=== PATIENT | female | born 1965 | race Caucasian/White ===

== ENCOUNTER 2020-08-30 06:57 | Outpatient (CLI) | payer OTHER, SELFPAY ==
--- NOTE | 2020-08-30 08:45 | USCV_ITS ---
Treasure Waldron Age: 55 Gender: F : 1965 Exam Date: 08/30/2020 07:28 Ordering Phys: Ascencion Johnson MD ([email or web address]) Technologist: Rachel Montero Exam Location: [facility] [place] Indication: SHORTNESS OF BREATH BP: 93 / 57 HR: 66 Rhythm: Sinus Technical Quality: Technically difficult study MEASUREMENTS (Male / Female) Normal Values 2D ECHO LV Diastolic Diameter PLAX 5.6 cm 4.2 - 5.9 / 3.9 - 5.3 cm LV Systolic Diameter PLAX 4.6 cm IVS Diastolic Thickness 1.4 cm 0.6 - 1.0 / 0.6 - 0.9 cm IVS Systolic Thickness 2.0 cm LVPW Diastolic Thickness 1.3 cm 0.6 - 1.0 / 0.6 - 0.9 cm LVPW Systolic Thickness 1.6 cm RV Chamber Size 3.2 cm LVOT Diameter 2.0 cm LV Ejection Fraction 2D Teich 38.3 % LV Ejection Fraction MOD 2C 32.1 % LV Ejection Fraction 2C AL 37.4 % LA Diameter 3.3 cm LA Width 4.7 cm LA Height 4.8 cm RA Width 4.2 cm RA Height 4.3 cm Aorta at Sinotubular Diameter 2.4 cm M-MODE Aortic Annulus Diameter 2.6 cm LA Ao Ratio MM 1.3 MV E Point Septal Separation 1.7 cm DOPPLER AV Peak Velocity 204.0 cm/s LVOT Peak Velocity 85.0 cm/s AV Area Cont Eq vti 1.5 cm squared AV Area Cont Eq pk 1.4 cm squared MV Area PHT 5.2 cm squared Mitral E to A Ratio 1.3 MV E' Velocity 54.2 cm/s Mitral E to MV E' Ratio 15.6 Mitral E to LV E' Lateral Ratio 15.1 Mitral E to LV E' Septal Ratio 16.2 TR Peak Velocity 265.0 cm/s TR Peak Gradient 28.1 mmHg Right Atrial Pressure 3.0 mmHg Pulmonary Artery Systolic Pressu 31.1 mmHg PV Peak Velocity 104.0 cm/s RV Acceleration Time 0.2 s RV Ejection Time 0.3 s RV AcT/ET 0.7 FINDINGS Left Ventricle Moderately increased left ventricular cavity size. Severely decreased left ventricular systolic function. Global hypokinesis with regional apical akinesis.left ventricular ejection fraction is estimated at 38 %.Grade II/IV diastolic dysfunction, moderately elevated filling pressures. Right Ventricle The right ventricle is normal in size and function. Right Atrium The right atrium is normal in size. Left Atrium The left atrium is normal in size. Mitral Valve Moderately thickened mitral valve. Moderate mitral annular calcification. No mitral valve stenosis. Trace mitral valve regurgitation. Aortic Valve Severe aortic valve calcification. Moderate aortic valve stenosis, mean gradient 9.1 mmHg, LISBET 1.5 cm squared. No aortic valve regurgitation. Tricuspid Valve Structurally normal tricuspid valve without significant stenosis or regurgitation. Pulmonary artery systolic pressure is normal. Pulmonic Valve Structurally normal pulmonic valve without significant stenosis. There is no pulmonic regurgitation. Pericardium Normal pericardium without effusion. Aorta Normal ascending aorta dimension. CONCLUSIONS 1-Moderately increased left ventricular cavity size. Severely decreased left ventricular systolic function. Global hypokinesis with regional apical akinesis.left ventricular ejection fraction is estimated at 38 %.Grade II/IV diastolic dysfunction, moderately elevated filling pressures. 2-Severe aortic valve calcification. Moderate aortic valve stenosis, mean gradient 9.1 mmHg, LISBET 1.5 cm squared. No aortic valve regurgitation. 3-Moderately thickened mitral valve. Moderate mitral annular calcification. No mitral valve stenosis. Trace mitral valve regurgitation. 4-There is no pericardial effusion. 5-Pulmonary artery systolic pressure is within normal limits. 6-Right atrial pressure is around 5 mm of mercury. 7-There are no prior echocardiogram studies to compare. Ascencion Johnson MD (Electronically Signed) Final Date: 01 September 2020 19:40 S
== END 2020-08-30 06:58 | disposition home or self-care (01) ==
LOC: US 06:59
PROVIDERS: PCP Family Medicine; Visit Provider Internal Medicine Cardiovascular Disease
DX: R06.02 Shortness of breath (principal); I08.0 Rheumatic disorders of both mitral and aortic valves
CPT/HCPCS: 93306

== ENCOUNTER → 2021-05-04 11:02 | Outpatient (BNVA) | payer OTHER, SELFPAY | PROVIDERS: PCP Family Medicine; Visit Provider Nurse Practitioner Family | DX: I10 Essential (primary) hypertension (principal); I50.23 Acute on chronic systolic (congestive) heart failure | CPT/HCPCS: 80048; 80061; 83880; 85025 ==

== ENCOUNTER → 2021-06-06 15:16 | Outpatient (BNVA) | payer OTHER, SELFPAY | PROVIDERS: PCP Family Medicine; Visit Provider Nurse Practitioner Family | DX: I50.23 Acute on chronic systolic (congestive) heart failure (principal) | CPT/HCPCS: 80048; 83880 ==

== ENCOUNTER 2021-09-12 15:28 | Outpatient (CLI) | payer OTHER, SELFPAY ==
[2021-09-12 16:55] LABS: Anion Gap 20.5 (5-19); Blood Urea Nitrogen 32 mg/dL (6-20); Calcium 10.4 mg/dL (8.5-10.5); Carbon Dioxide 25 mmol/L (22-29); Chloride 95 mmol/L (98-107); Glomerular Filtration Rate 57.4 mL/min (90-130); Glucose 123 mg/dL (65-115); Magnesium 1.4 mg/dL (1.7-2.3); NT Pro B Type Natriuretic Pept 2600 pg/mL (0-125); Osmolality Calculated 292 mOsm/kg (285-295); Potassium 3.5 mmol/L (3.5-5.1); Sodium 137 mmol/L (136-145)
== END 2021-09-12 15:29 | disposition home or self-care (01) ==
LOC: LAB 15:31
PROVIDERS: PCP Family Medicine; Visit Provider Internal Medicine Cardiovascular Disease
DX: I10 Essential (primary) hypertension (principal); I50.23 Acute on chronic systolic (congestive) heart failure
CPT/HCPCS: 80048; 83735; 83880

== ENCOUNTER 2021-09-15 06:13 | Inpatient (IN) | payer OTHER, SELFPAY ==
[2021-09-15] VITALS (11 sets, daily range): BP systolic 96–111; BP diastolic 54–84; PULSE 89–120; RESP 16–26; TEMP 36.8–37.8; O2SAT 91–96; BMI 40.4
--- NOTE | 2021-09-15 06:26 | ED_ITS ---
HPI - SOB/Dyspnea General: Chief Complaint: Shortness of Breath/Dyspnea Stated Complaint: diff breathing, hurting all over Time Seen by Provider: 09/15/21 06:18 Source: patient Mode of arrival: ambulatory Limitations: no limitations History of Present Illness: HPI Narrative: 56-year-old female presents emergency room with complaint of shortness of breath and cough. Patient is tachycardic with a low-grade fever. States that overnight she was disoriented for time sitting up family that was with her said she was talking incoherently and it lasted for about 2 hours is resolved now. She does have a significant history of congestive heart failure ejection fraction in the 30s. Patient seen Dr. Penaloza yesterday and increased her spironolactone to 50 mg daily. Patient also has a history of sleep apnea. She denies any chest pain last night or at this time. Difficulty speech or swallowing. MD elicited complaint: shortness of breath and cough Pertinent past history: congestive heart failure Onset (ago): hour(s) Severity: moderate Exacerbating factors: lying flat, exertion and coughing Relieving factors: rest Known history of: congestive heart failure Associated symptoms: Reports cough, fever(s) and orthopnea; Deny abdominal pain, chest congestion, chest pain, diaphoresis, dizziness, extremity pain, hemoptysis, lightheadedness, myalgias, nausea, palpitations, paresthesias, polydipsia, polyuria, rash, sense of impending doom, syncope or vomiting Treatment prior to arrival: none Review of Systems Const: Reports: fever(s), change in appetite, fatigue and malaise; Denies: chills, body aches or diaphoresis ENMT: Denies: throat pain, ear or mastoid pain, nasal discharge or nasal congestion Card: Reports: dyspnea on exertion and orthopnea; Denies: chest pain, palpitations, edema, swelling of feet/ankles, lightheadedness or syncope Resp: Reports: dyspnea and non-productive cough; Denies: hemoptysis or chest congestion GI: Denies: abdominal pain, nausea or vomiting : Denies: flank pain, difficulty voiding, dysuria, urinary frequency or urinary urgency Musc: Denies: extremity pain Skin/Breast: Denies: rash or pruritus Neuro: Denies: dizziness Endo: Denies: polyuria or polydipsia PFSH ED PFSH: Medical History Cardiomyopathy Nonischemic, angiogram 2019 no disease Chronic back pain COPD (chronic obstructive pulmonary disease) Crohn disease Diabetes type 2, controlled Essential hypertension GERD (gastroesophageal reflux disease) Hyperlipidemia Hypothyroid Left bundle branch block Morbid obesity AURELIO on CPAP Presence of neurostimulator Systolic heart failure Surgical History History of carpal tunnel surgery Previous section Family History Other CAD (coronary artery disease) Hypertension Social History Smoking and tobacco status: current every day smoker Alcohol intake: current Alcohol intake frequency: 0-2 Drinks per Day Physical Exam Const: GENERAL APPEARANCE: cooperative and comfortable ORIENTATION/CONSCIOUSNESS: Yes awake, Yes oriented to person, Yes oriented to place and Yes oriented to time HENMT: COMMON NORMALS: normocephalic, atraumatic and hearing grossly normal bilaterally HEAD & SCALP: normocephalic and atraumatic Neck/C-Spine: COMMON NORMALS: no JVD Resp: COMMON NORMALS: normal respiratory effort, No retractions and No use of accessory muscles AUSCULTATION: crackles Cardio: COMMON NORMALS: no JVD, regular rate, regular rhythm and No murmurs present (Cardio) RATE: regular rate RHYTHM: regular rhythm GI: COMMON NORMALS: Soft to palpation and No hepatosplenomegaly present AUSCULTATION: Yes normoactive bowel sounds PALPATION: Yes Soft to palpation, No Tenderness to palpation present (GI), No Guarding due to palpation present (GI) and Yes No hepatosplenomegaly present Extremity: COMMON NORMALS: normal to inspection, capillary refill normal, no clubbing, cyanosis or edema, no calf tenderness and no pedal edema Neuro: SENSORIUM/ORIENTATION: Yes oriented to person, Yes oriented to place and Yes oriented to time Skin: COMMON NORMALS: no rashes or lesions noted GENERAL SKIN EXAM: no rashes or lesions noted Course Vital Signs: Vital signs: Vital Signs Temperature 98.3 F 09/20/21 07:27 Pulse Rate 92 09/20/21 08:13 Respiratory Rate 16 09/20/21 08:08 Blood Pressure 113/71 09/20/21 07:27 Pulse Oximetry 98 09/20/21 08:08 MDM - SOB/Dyspnea Medical Decision Making Right lower lobe pneumonia in addition to COPD exacerbation exacerbation of congestive heart failure. Discussed with hospitalist will admit orders written Medical Records I reviewed the patient's medical records. Lab Data I reviewed the patient's lab results. : 09/20/21 02:25 09/20/21 02:25 Labs/Radiology: Radiology Impressions Chest X-Ray 09/15/21 06:29 IMPRESSION: 1. Cardiac enlargement. No acute process. Abdomen/Pelvis CT 09/15/21 09:25 IMPRESSION: 1. No acute abdominal or pelvic abnormalities are identified. 2. No ascites or free air. 3. Normal appendix. 4. Focal area of subsegmental atelectasis versus lymph node along the proximal RIGHT lower lobe bronchus. Chest CT with IV contrast may be necessary to further identify and defined. Chest CT 09/16/21 09:41 IMPRESSION: 1. Area of subsegmental atelectasis seen in the medial right lower lobe which probably accounts for the abnormality identified on recent abdominal CT scan. 2. 1.5 x 2.1 cm soft tissue nodule seen in the right hilar area with surrounding infiltrate. This could represent a small area of focal pneumonia. A benign or malignant pulmonary nodule could have the same appearance. Comparison with any prior outside CTs could be helpful. Otherwise 3 month follow-up for surveillance could be performed. 3. No lymphadenopathy in the chest. No other significant finding. Laboratory Results WBC 14.7 10^3/uL (4.0-10.0) H 09/15/21 06:25 RBC 4.17 10^6/uL (4.1-5.3) 09/15/21 06:25 Hgb 13.2 g/dL (11.5-15.3) 09/15/21 06:25 Hct 39.0 % (37.0-47.0) 09/15/21 06:25 MCV 93.5 fl (81-99) 09/15/21 06:25 MCH 31.7 pg (28.0-34.0) 09/15/21 06:25 MCHC 33.8 g/dL (30.0-36.0) 09/15/21 06:25 RDW 12.6 % (12.1-15.1) 09/15/21 06:25 Plt Count 295 10^3/cmm (130-400) 09/15/21 06:25 MPV 9.7 fL (7.4-10.4) 09/15/21 06:25 Neut % (Auto) 77.7 % 09/15/21 06:25 Lymph % (Auto) 10.4 % 09/15/21 06:25 Bell % (Auto) 10.6 % 09/15/21 06:25 Eos % (Auto) 0.6 % 09/15/21 06:25 Baso % (Auto) 0.4 % 09/15/21 06:25 Neut # (Auto) 11.41 10^3/uL (1.8-7.7) H 09/15/21 06:25 Lymph # (Auto) 1.5 10^3/uL (0.8-4.8) 09/15/21 06:25 Bell # (Auto) 1.6 10^3/uL (0.2-0.9) H 09/15/21 06:25 Eos # (Auto) 0.1 10^3/uL (0.0-0.8) 09/15/21 06:25 Baso # (Auto) 0.1 10^3/uL (0.0-0.1) 09/15/21 06:25 Nucleated RBC % (auto) 0 % 09/15/21 06:25 Nucleated RBCs # 0.0 /100WBC 09/15/21 06:25 Sodium 134 mmol/L (136-145) L 09/15/21 07:19 Potassium 3.1 mmol/L (3.5-5.1) L 09/15/21 07:19 Chloride 92 mmol/L (98-107) L 09/15/21 07:19 Carbon Dioxide 28 mmol/L (22-29) 09/15/21 07:19 Anion Gap 17.1 (5-19) 09/15/21 07:19 BUN 22 mg/dL (6-20) H 09/15/21 07:19 Creatinine 0.7 mg/dL (0.5-0.9) 09/15/21 07:19 GFR Calculation 86.6 mL/min (90-130) L 09/15/21 07:19 Glucose 164 mg/dL (65-115) H 09/15/21 07:19 Calculated Osmolality 285 mOsm/kg (285-295) 09/15/21 07:19 Lactic Acid 1.4 mmol/L (0.5-2.2) 09/15/21 07:19 Calcium 9.6 mg/dL (8.5-10.5) 09/15/21 07:19 Magnesium 1.4 mg/dL (1.7-2.3) L 09/15/21 11:40 Total Bilirubin 0.7 mg/dL (0.15-1.2) 09/15/21 07:19 AST 16 U/L (0-32) 09/15/21 07:19 ALT 15 U/L (0-33) 09/15/21 07:19 Alkaline Phosphatase 43 IU/L (35-105) 09/15/21 07:19 Troponin T Baseline 28 ng/L (0-10) H 09/15/21 07:19 Troponin T 120 Minute 24.16 ng/L (0-10) H 09/15/21 08:40 Delta Troponin T -3.84 ABS# (0-10) L 09/15/21 08:40 Troponin T Hi Sens 6Hr 27.67 ng/L (0-10) H 09/15/21 11:40 Troponin T Hi Sens 6Hr Delta -0.33 ng/L (0-12) L 09/15/21 11:40 NT-Pro-B Natriuret Pep 2853 pg/mL (0-125) H 09/15/21 07:19 Total Protein 8.3 g/dL (6.6-8.7) 09/15/21 07:19 Albumin 4.5 g/dL (3.5-5.2) 09/15/21 07:19 Globulin 3.8 g/dL (1.3-4.6) 09/15/21 07:19 TSH 0.68 uIU/mL (0.27-4.20) 09/15/21 11:40 Urine Color Yellow (Yellow) 09/15/21 07:54 Urine Appearance Clear (CLEAR) 09/15/21 07:54 Urine pH 6 (5-7) 09/15/21 07:54 Ur Specific [place] 1.015 (1.005-1.030) 09/15/21 07:54 Urine Protein Neg (Negative) 09/15/21 07:54 Urine Glucose (UA) Norm (Normal) 09/15/21 07:54 Urine Ketones Negative (Negative) 09/15/21 07:54 Urine Blood 2+ (Negative) H 09/15/21 07:54 Urine Nitrate Negative (Negative) 09/15/21 07:54 Urine Bilirubin Neg (Negative) 09/15/21 07:54 Urine Urobilinogen Norm mg/dL (Negative) 09/15/21 07:54 Ur Leukocyte Esterase Negative (Negative) 09/15/21 07:54 Urine RBC 5-10 /hpf (0-2) H 09/15/21 07:54 Urine WBC 0-4 /hpf (0-5) H 09/15/21 07:54 Ur Squamous Epith Cells 15-25 /hpf (0-5) H 09/15/21 07:54 Amorphous Sediment Not Reportable 09/15/21 07:54 Urine Bacteria 1+ /hpf (NONE) H 09/15/21 07:54 Discharge Plan Discharge Patient Disposition: Admitted As Inpatient Admit Provider: Pascual Milton Clinical Impression: Pneumonia, COPD exacerbation, Systolic heart failure, Hypokalemia, Hypomagnesemia Condition: Stable Coding Level of Care Code ED 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
--- NOTE | 2021-09-15 06:29 | XR_ITS ---
WS: [id number] Exam: XR chest 1V portable [id number] Date/Time of Exam: 09/15/2021 6:32 AM Reason For Exam: dyspnea/cough Comparison 03/12/2019. The heart enlarged but unchanged in size. The lungs are clear and fully inflated. Normal mediastinal contour. Regional bony elements are intact. Neurostimulator electrodes in the mid thoracic region. XR/XR chest 1V portable [id number] IMPRESSION: 1. Cardiac enlargement. No acute process.
--- NOTE | 2021-09-15 06:29 | ECG_ITS ---
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 Measurements Intervals [place] Rate: 115 P: [place]: QRS: -22 QRSD: 178 T: 75 QT: 375 QTc: 520 Interpretive Statements Possible sinus tachycardia with afrequent supraventricular and ventricular ectopics INTRAVENTRICULAR CONDUCTION DELAY [130+ ms QRS DURATION] CRITICAL TEST RESULT INTERPRETATION BASED ON A DEFAULT AGE OF 40 YEARS Compared to ECG 03/12/2019 04:10:17 Intraventricular conduction delay now present Sinus rhythm no longer present Left bundle-branch block no longer present Electronically Signed On 09-16-2021 13:35:06 CDT by Alexis Weldon M.D. [id number]
[2021-09-15 06:44] LABS: Basophils # 0.1 10^3/uL (0.0-0.1); Basophils % 0.4 %; Eosinophils # 0.1 10^3/uL (0.0-0.8); Eosinophils % 0.6 %; Hemoglobin 13.2 g/dL (11.5-15.3); Lymphocytes # 1.5 10^3/uL (0.8-4.8); Lymphocytes % 10.4 %; Mean Corpuscular HGB Conc 33.8 g/dL (30.0-36.0); Mean Corpuscular Hemoglobin 31.7 pg (28.0-34.0); Mean Corpuscular Volume 93.5 fl (81-99); Mean Platelet Volume 9.7 fL (7.4-10.4); Monocytes # 1.6 10^3/uL (0.2-0.9); Monocytes % 10.6 %; Neutrophils # 11.41 10^3/uL (1.8-7.7); Neutrophils % 77.7 %; Nucleated Red Blood Cells % 0 %; Platelet Count 295 10^3/cmm (130-400); Red Blood Count 4.17 10^6/uL (4.1-5.3); Red Cell Distribution Width 12.6 % (12.1-15.1); White Blood Count 14.7 10^3/uL (4.0-10.0)
[2021-09-15 07:46] LABS: Lactic Sepsis W/Reflex 1.4 mmol/L (0.5-2.2)
[2021-09-15 07:48] LABS: Troponin(5th) Baseline 28 ng/L (0-10)
[2021-09-15 07:57] LABS: Alanine Aminotransferase 15 U/L (0-33); Albumin Level 4.5 g/dL (3.5-5.2); Alkaline Phosphatase 43 IU/L (35-105); Anion Gap 17.1 (5-19); Aspartate Amino Transferase 16 U/L (0-32); Blood Urea Nitrogen 22 mg/dL (6-20); Calcium 9.6 mg/dL (8.5-10.5); Carbon Dioxide 28 mmol/L (22-29); Chloride 92 mmol/L (98-107); Globulin 3.8 g/dL (1.3-4.6); Glomerular Filtration Rate 86.6 mL/min (90-130); Glucose 164 mg/dL (65-115); NT Pro B Type Natriuretic Pept 2853 pg/mL (0-125); Osmolality Calculated 285 mOsm/kg (285-295); Potassium 3.1 mmol/L (3.5-5.1); Sodium 134 mmol/L (136-145); Total Bilirubin 0.7 mg/dL (0.15-1.2); Total Protein 8.3 g/dL (6.6-8.7)
[2021-09-15 08:14] LABS: Add Urine Microscopic? YES; Bilirubin Urine Neg (Negative); Blood Urine 2+ (Negative); Glucose Urine UA Norm (Normal); Ketones Urine Negative (Negative); Leukocyte Esterase Urine Negative (Negative); Nitrate Urine Negative (Negative); Protein Urine Neg (Negative); Specific Gravity, Urine 1.015 (1.005-1.030); Urine Appearance Clear (CLEAR); Urine Color Yellow (Yellow); Urobilinogen Urine Norm (Negative); pH Urine 6 (5-7)
[2021-09-15 08:24] LABS: Add Urine Culture? No; Bacteria Urine 1+ /hpf; Squamous Epithelial Cell Urine 15-25 /hpf (0-5); WBC Urine 0-4 /hpf (0-5)
--- NOTE | 2021-09-15 08:29 | ECG_ITS ---
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 Measurements Intervals [place] Rate: 119 P: 59 DE: 257 QRS: 20 QRSD: 177 T: 79 QT: 376 QTc: 530 Interpretive Statements SINUS TACHYCARDIA WITH FREQUENT VENTRICULAR PREMATURE COMPLEXES LEFT ATRIAL ENLARGEMENT [-0.15mV P-WAVE IN V1/V2] LEFT BUNDLE BRANCH BLOCK [120+ ms QRS DURATION, 80+ ms Q/S IN V1/V2, 85+ ms R IN I/aVL/V5/V6] Compared to ECG 09/15/2021 06:23:01 Ventricular premature complex(es) now present First degree AV block now present Atrial abnormality now present Left bundle-branch block now present Intraventricular conduction delay no longer present Electronically Signed On 09-16-2021 13:51:15 CDT by Alexis Weldon M.D. [id number]
[2021-09-15 09:15] LABS: Troponin 5 2HR 24.16 ng/L (0-10)
[2021-09-15 09:17] LABS: Troponin 5 2HR Delta -3.84 ABS# (0-10)
--- NOTE | 2021-09-15 09:25 | CT_ITS ---
WS: [id number] CT ABDOMEN AND PELVIS WITH CONTRAST HISTORY: Abdominal pain. TECHNIQUE: Imaging performed of the abdomen and pelvis with IV contrast. Single phase imaging of the abdomen. Coronal and sagittal reformats are submitted. All CT scans at [facility] use at [address] one of these dose optimization techniques: automated exposure control; mA and/or kV adjustment per patient size (includes targeted exams where dose is matched to clinical indication); or iterative re construction. IV CONTRAST: Omnipaque 300; 95 mL IV. Oral contrast: No DLP: 1592.06 mGy.cm COMPARISON: None available. Lower thorax: Lung bases are clear. Incompletely visualized 2.5 cm lymph node versus atelectasis marty cent to the LEFT atrium. Heart is moderately enlarged. No hiatal hernia. Liver/biliary system: Normal size with no intrahepatic dilatation. Very slightly decreased attenuatio n near the venecia hepatis. May be an area of fatty sparing. Normal portal vein. Gallbladder: Normal. No gallstones or wall thickening. No pericholecystic fluid. Pancreas: Normal size pancreas and pancreatic duct. No adjacent inflammation. Spleen: Normal size spleen. No mass or infarct. Adrenal glands: Normal. Right kidney: Normal. Left kidney: Normal. Aorta: Mild atherosclerosis with no aneurysm. Lymphadenopathy: None. Free fluid: None. GI tract: Normal appendix. Stomach is not distended. No small bowel obstruction or wall thickening. C olon is normal. Abdominal wall: Unremarkable abdominal wall. No hernia. Pelvis: Well-distended urinary bladder. No free fluid or adenopathy. Uterus is atrophic. There is a d ense calcification in the LEFT adnexa associated with the ovary. No ovarian mass. Bones: L5 anterolisthesis by 9 mm with bilateral pars defects. Disc space narrowing throughout. Dorsa l column stimulator with electrodes over the mid thoracic region. CT/CT abdomen pelvis w con* [id number] IMPRESSION: 1. No acute abdominal or pelvic abnormalities are identified. 2. No ascites or free air. 3. Normal appendix. 4. Focal area of subsegmental atelectasis versus lymph node along the proximal RIGHT lower lobe bronchus. Chest CT with IV contrast may be necessary to furth er identify and defined.
[2021-09-15] MEDS: iohexol 300 mg/mL 100 mL Btl IV (09:36)
[2021-09-15 12:09] LABS: Troponin 5 6HR 27.67 ng/L (0-10)
[2021-09-15 12:11] LABS: Troponin 5 6HR Delta -0.33 ng/L (0-12)
[2021-09-15 12:14] LABS: Magnesium 1.4 mg/dL (1.7-2.3); Thyroid Stimulating Hormone 0.68 uIU/mL (0.27-4.20)
--- NOTE | 2021-09-15 12:29 | ECG_ITS ---
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 Measurements Intervals [place] Rate: 110 P: 76 CO: 158 QRS: 9 QRSD: 181 T: 78 QT: 389 QTc: 528 Interpretive Statements SINUS TACHYCARDIA WITH OCCASIONAL VENTRICULAR PREMATURE COMPLEXES LEFT BUNDLE BRANCH BLOCK [120+ ms QRS DURATION, 80+ ms Q/S IN V1/V2, 85+ ms R IN I/aVL/V5/V6] Compared to ECG 09/15/2021 08:05:43 First degree AV block no longer present Atrial abnormality no longer present Electronically Signed On 09-16-2021 13:50:07 CDT by Nora Yancey M.D. [id number]
--- NOTE | 2021-09-15 12:42 | P.HP_ITS ---
Providers/Chief Complaint Primary Care Provider: Sascha Carcamo Chief Complaint: diff breathing, hurting all over History of Present Illness Treasure Waldron is a 56 year old female who presents with cough, myalgias, and significant chills since last night. She states the cough has been going on somewhat longer. She has been wheezing. There is been no vomiting, diarrhea. She has had some nausea. She reports she had Covid in June, and has received 2 vaccinations but not a booster. She is recently had her cardiac medicines adj usted for concerns of fluid overload. She reports a mild headache. She denies any sick contacts at home. She reports no chest discomfort, only some tightness with her wheezing. She feels more swollen than usual, which she reports in her abdomen and arms. She states she does not usually get swelling from her heart failure in her upper extremities. Review of Systems General: Reports: 10 or more systems reviewed and unremarkable except in HPI and below Const: Reports: chills, body aches and fatigue Eyes: Denies: change in vision ENMT: Denies: throat pain or hoarseness Card: Reports: dyspnea on exertion Resp: Reports: dyspnea, non-productive cough and wheezing GI: Reports: nausea; Denies: vomiting, heartburn, hematochezia or melena : Denies: flank pain or difficulty voiding Musc: Denies: neck pain Skin/Breast: Denies: rash Neuro: Reports: headache(s) Psych: Denies: anxiety or depression Endo: Denies: polyuria Oleksandr/Lymph: Denies: easy bruising All/Imm: Denies: urticaria Medications/Allergies Home Medications Medication Instructions Recorded Confirmed Last Taken Type ascorbic acid (vitamin C) 1,000 mg 1,000 mg PO BID 08/09/20 09/15/21 09/14/21 History tablet aspirin 81 mg tablet,delayed 81 mg PO QAM 08/09/20 09/15/21 09/14/21 History release (Adult Low Dose Aspirin) elderberry fruit 200 mg capsule 200 mg PO DAILY PRN 08/09/20 09/15/21 Unknown History levothyroxine 75 mcg tablet 75 mcg PO QAM 08/09/20 09/15/21 09/14/21 History loratadine 10 mg tablet 10 mg PO BEDTIME 08/09/20 09/15/21 09/14/21 History metformin 500 mg tablet 500 mg PO BID 08/09/20 09/15/21 09/14/21 History pantoprazole 40 mg tablet,delayed 40 mg PO BID tab 08/09/20 09/15/21 09/14/21 History release paroxetine HCl 20 mg tablet 20 mg PO BEDTIME 08/09/20 09/15/21 09/14/21 History albuterol sulfate 90 mcg/actuation 2 puff INHALATION Q6H PRN 04/05/21 09/15/21 Unknown History aerosol inhaler infliximab 100 mg intravenous See Rx Instructions .ROUTE 04/05/21 09/15/21 Unknown History solution (Remicade) .COMPLEX ea metoprolol succinate 25 mg 12.5 mg PO DAILY #90 tab 05/25/21 09/15/21 09/14/21 Rx tablet,extended release 24 hr acetaminophen 500 mg tablet 1,000 - 1,500 mg PO Q4H PRN 09/08/21 09/15/21 Unknown History (Tylenol Extra Strength) cholecalciferol (vitamin D3) 25 25 mcg PO QAM 09/08/21 09/15/21 09/14/21 History mcg (1,000 unit) capsule omega-3 fatty acids 500 mg capsule 500 mg PO BEDTIME 09/08/21 09/15/21 09/14/21 History spironolactone 50 mg tablet 50 mg PO DAILY #90 tab 09/08/21 09/15/21 09/14/21 Rx tramadol 50 mg tablet 50 mg PO Q8H PRN 09/08/21 09/15/21 Unknown History furosemide 40 mg tablet 80 mg PO BID #360 tab 09/13/21 09/15/21 09/14/21 Rx magnesium oxide 400 mg PO BID #60 cap 09/13/21 09/15/21 Unknown Rx potassium chloride 20 mEq 40 meq PO BID #360 tab 09/13/21 09/15/21 09/14/21 Rx tablet,extended release cyclobenzaprine 10 mg tablet 10 mg PO BID PRN 09/15/21 09/15/21 Unknown History metolazone 2.5 mg tablet See Rx Instructions .ROUTE .COMPLEX 09/15/21 09/15/21 09/14/21 History 2.5MG multivitamin 1 tab PO DAILY 09/15/21 09/15/21 09/14/21 History rosuvastatin 10 mg tablet 10 mg PO BEDTIME 09/15/21 09/15/21 09/14/21 History Allergies Allergy/AdvReac Type Severity Reaction Status Date / Time levofloxacin Allergy Unknown Unknown Verified 09/15/21 11:34 sacubitril [From Entresto] Allergy ADR-Itching Verified 09/15/21 11:34 valsartan [From Entresto] Allergy ADR-Itching Verified 09/15/21 11:34 PFSH Acute PFSH: Medical History (Updated 09/15/21 @ 14:51 by Pascual Milton MD) Cardiomyopathy Nonischemic, angiogram 2019 no disease Chronic back pain COPD (chronic obstructive pulmonary disease) Crohn disease Diabetes type 2, controlled Essential hypertension GERD (gastroesophageal reflux disease) Hyperlipidemia Hypothyroid Morbid obesity AURELIO on CPAP Presence of neurostimulator Systolic heart failure Surgical History (Updated 09/15/21 @ 12:54 by Pascual Milton MD) History of carpal tunnel surgery Previous section Family History Other CAD (coronary artery disease) Hypertension Social History Smoking and tobacco status: current every day smoker Alcohol intake: current Alcohol intake frequency: 0-2 Drinks per Day Vitals/I&O/Wt Last Vital Signs Temp 100.1 F H 09/15/21 06:18 Pulse 111 H 09/15/21 11:16 Resp 16 09/15/21 11:16 BP 98/75 09/15/21 11:16 Pulse Ox 91 09/15/21 11:16 Weight last 48 hrs Weight 90.718 kg Physical Exam Narrative: General exam is a white female, with audible wheezing. Mild retractions. Temperature elevation noted HEENT: Pupils equally round. Oropharynx clear. Neck is supple no lymphadenopathy or thyromegaly Cardiovascular tachycardic, no murmur Lungs bilateral expiratory wheezes. A few rales bilaterally Abdomen is soft nontender obese positive bowel sounds. No obvious organomegaly exams deferred Extremities no cyanosis clubbing or edema, cap refill brisk Skin no rash Neuro no obvious focal deficits. Data : 09/15/21 06:25 09/15/21 07:19 Other Labs: Magnesium 1.4 Troponin XX 8 with repeat of 24 BNP 2853 LFTs normal TSH 0.68 Urinalysis with 5-10 red blood cells 0-4 white blood cells Covid PCR pending Last echogram August demonstrated diminished EF at 38%, 2/4 diastolic dysfunction, moderate aortic valve stenosis. EKG demonstrates sinus tachycardia, left bundle branch block Chest x-ray cardiomegaly CT abdomen pelvis demonstrates a right lower lobe enlarged lymph node near bronchus or atelectasis. This could also represent an infiltrate such as pneum onia. Further imaging with CT chest could be considered. Micro: Microbiology 09/15/21 06:50 Blood Culture - Preliminary Blood SPECIMEN COLLECTED 09/15/21 06:50 Blood Culture - Preliminary Blood SPECIMEN COLLECTED A&P Assessment and plan (1) Pneumonia: Clinically she appears to have pneumonia with elevated temperature, abnormality on CT scan right lower lobe, tachycardia. She has some immune suppression as she is on infliximab for history of Crohn's disease. Blood cultures have been drawn. Obtain sputum culture. Covid PCR, which will include influenza Initial antibiotics of Rocephin and azithromycin Oxygen as needed Status: Acute (2) COPD exacerbation: Active wheezing Initiate Solu-Medrol 60 mg IV every 8 hours DuoNeb every 4 hours scheduled, budesonide twice daily Discussed abstaining from smoking. Nicotine patch. Status: Acute (3) Systolic heart failure: History of nonischemic cardiomyopathy. Mild exacerbation. Hold p.o. diuretics currently, changed to Lasix 80 mg every 12 hours Repeat echocardiogram Telemetry BNP elevated above patient's regular baseline as well. Status: Acute Qualifiers: Heart failure chronicity: acute on chronic Qualified Code(s): I50.23 - Acute on chronic systolic (congestive) heart failure (4) Hypokalemia: Supplement Continue to follow by rechecking tomorrow Status: Acute (5) Hypomagnesemia: Supplement with 2 g of magnesium IV Status: Acute (6) Diabetes type 2, controlled: Sliding scale insulin Status: Acute Plan Nicotine addiction. 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
[2021-09-15] MEDS: cefTRIAXone 1,000 MG in sodium chloride 0.9% (plus) 50 ML 100 MG IV (13:01)
[2021-09-15] MEDS: nicotine 21 mg Patch 1 PATCH TRANSDERMA (13:05)
[2021-09-15] MEDS: azithromycin 500 MG in sodium chloride 0.9% 250 ML 250 MG IV (14:04)
[2021-09-15] MEDS: potassium chloride ER 20 mEq Tablet 40 MEQ PO ×2 (14:08→17:29)
[2021-09-15] MEDS: magnesium sulfate premix 2 GM/50 ML PIGGYBACK IV (15:24)
[2021-09-15 15:45] LABS: Adenovirus Not Detected (NOT DETECT); Chlamydia Pneumoniae Not Detected (NOT DETECT); Coronavirus 229E,HKU1,NL63,OC4 Not Detected (NOT DETECT); Human Metapneumovirus Not Detected (NOT DETECT); Human Rhinovirus/Enterovirus Not Detected (NOT DETECT); Influenza A Not Detected (NOT DETECT); Influenza A H1 Not Detected (NOT DETECT); Influenza A H1-2009 Not Detected (NOT DETECT); Influenza A H3 Not Detected (NOT DETECT); Influenza B Not Detected (NOT DETECT); Mycoplasma Pneumoniae Not Detected (NOT DETECT); Parainfluenza Virus Type 1 Not Detected (NOT DETECT); Parainfluenza Virus Type 2 Not Detected (NOT DETECT); Parainfluenza Virus Type 3 Not Detected (NOT DETECT); Parainfluenza Virus Type 4 Not Detected (NOT DETECT); Respiratory Syncytial Virus A Not Detected (NOT DETECT); Respiratory Syncytial Virus B Not Detected (NOT DETECT); SARS-COV-2 Not Detected (NOT DETECT)
--- NOTE | 2021-09-15 16:00 | PC.NURSE ---
Vitals scanned into chart
[2021-09-15] MEDS: FUROsemide 10 mg/mL SDV 10mL 80 MG IVP (17:26)
[2021-09-15] MEDS: enoxaparin 40 mg/0.4 mL Syringe SUBCUT (17:27)
[2021-09-15] MEDS: magnesium oxide 400 mg tablet PO (17:28)
[2021-09-15] MEDS: pantoprazole DR 40 mg Tablet PO (17:28)
--- NOTE | 2021-09-15 19:25 | ECG_ITS ---
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 Measurements Intervals [place] Rate: 105 P: -87 [place]: 245 QRS: 26 QRSD: 185 T: 49 QT: 411 QTc: 543 Interpretive Statements SINUS TACHYCARDIA WITH FIRST DEGREE AV BLOCK WITH OCCASIONAL VENTRICULAR PREMATURE COMPLEXES LEFT ATRIAL ENLARGEMENT [-0.15mV P-WAVE IN V1/V2] LEFT BUNDLE BRANCH BLOCK Compared to ECG 09/15/2021 13:15:15 First degree AV block now present Atrial abnormality now present Electronically Signed On 09-16-2021 11:01:57 CDT by Nora Yancey M.D. [email or web address] [id number]
[2021-09-15] MEDS: PARoxetine 20 mg Tablet PO (20:19)
[2021-09-15] MEDS: atorvastatin 40 mg Tablet PO (20:19)
[2021-09-15] MEDS: ipratropium-albuterol 3 mL Neb INHALATION (20:33)
[2021-09-15] MEDS: budesonide 0.5 mg/2 mL Neb INHALATION (20:33)
--- NOTE | 2021-09-15 23:45 | PC.NURSE ---
i reported high pulse 102 to nurse
[2021-09-16] VITALS (14 sets, daily range): BP systolic 98–108; BP diastolic 64–77; PULSE 90–111; RESP 16–22; TEMP 36.4–37.2; O2SAT 92–97
[2021-09-16 03:44] LABS: Basophils % 0.1 %; Hematocrit 40.1 % (37.0-47.0); Hemoglobin 13.2 g/dL (11.5-15.3); Lymphocytes # 0.7 10^3/uL (0.8-4.8); Mean Corpuscular HGB Conc 32.9 g/dL (30.0-36.0); Mean Corpuscular Volume 94.1 fl (81-99); Mean Platelet Volume 9.5 fL (7.4-10.4); Monocytes # 0.4 10^3/uL (0.2-0.9); Neutrophils # 13.31 10^3/uL (1.8-7.7); Neutrophils % 91.4 %; Nucleated Red Blood Cells % 0 %; Platelet Count 278 10^3/cmm (130-400); Red Blood Count 4.26 10^6/uL (4.1-5.3); Red Cell Distribution Width 12.2 % (12.1-15.1); White Blood Count 14.6 10^3/uL (4.0-10.0)
[2021-09-16 04:06] LABS: Magnesium 2.2 mg/dL (1.7-2.3)
[2021-09-16 04:07] LABS: Alanine Aminotransferase 12 U/L (0-33); Albumin Level 4.5 g/dL (3.5-5.2); Alkaline Phosphatase 49 IU/L (35-105); Anion Gap 15.5 (5-19); Aspartate Amino Transferase 14 U/L (0-32); Blood Urea Nitrogen 25 mg/dL (6-20); Calcium 9.8 mg/dL (8.5-10.5); Carbon Dioxide 29 mmol/L (22-29); Chloride 95 mmol/L (98-107); Globulin 4.1 g/dL (1.3-4.6); Glomerular Filtration Rate 86.6 mL/min (90-130); Glucose 259 mg/dL (65-115); Osmolality Calculated 295 mOsm/kg (285-295); Potassium 3.5 mmol/L (3.5-5.1); Sodium 136 mmol/L (136-145); Total Bilirubin 0.5 mg/dL (0.15-1.2); Total Protein 8.6 g/dL (6.6-8.7)
--- NOTE | 2021-09-16 04:28 | PC.NURSE ---
i reported low temp 97.5 and high pulse 102 to nurse
[2021-09-16] MEDS: ipratropium-albuterol 3 mL Neb INHALATION ×4 (04:52→20:43)
[2021-09-16] MEDS: aspirin 81 mg EC Tablet PO (05:26)
[2021-09-16] MEDS: levothyroxine 75 mcg Tablet PO (05:27)
[2021-09-16] MEDS: FUROsemide 10 mg/mL SDV 10mL 80 MG IVP ×2 (05:27→17:40)
--- NOTE | 2021-09-16 06:39 | PC.NURSE ---
Patient AAOx4, remains tachycardic, awake most of night watching tv, minimal c/o of pressure to chest and this nurse watch patient closely throughout shift. NO new events, no needs, will report to oncoming nurse at shift change, room clutter free with call light in reach.
[2021-09-16] MEDS: budesonide 0.5 mg/2 mL Neb INHALATION ×2 (09:08→20:43)
--- NOTE | 2021-09-16 09:38 | PM.PN ---
Subjective Subjective: Treasure reports she feels a little bit better. Less wheezing. Insulin. Headache and neck pain is not present. Feels like her chills have improved. Still think she is somewhat fluid overloaded. We visited extensively about this and concluded although her diuretics have been increased numerous times she is not really following any fluid restriction or dietary restriction of salt. No chest pain. Medications: Reviewed: Yes Vitals/I&O/Wt Last Vital Signs Temp 98.4 F 09/16/21 07:55 Pulse 107 H 09/16/21 09:10 Resp 20 H 09/16/21 09:10 BP 98/69 09/16/21 07:55 Pulse Ox 92 09/16/21 09:10 09/15/21 09/16/21 09/16/21 22:59 06:59 14:59 Intake Total 740 / 790 Output Total 780 / 780 Balance 740 / 790 -780 / 10 Weight last 48 hrs Weight 90.718 kg Physical Exam Narrative: General exam is a white female, no distress HEENT: Pupils equally round. Oropharynx clear. Neck is supple no lymphadenopathy or thyromegaly Cardiovascular regular rate and rhythm without murmur Lungs faint expiratory wheezes, with improved aeration and less wheezing than yesterday Abdomen is soft nontender obese positive bowel sounds. No obvious organomegaly Extremities no cyanosis clubbing or edema, cap refill brisk Skin no rash Data : 09/16/21 03:18 09/16/21 03:18 Micro: Microbiology 09/15/21 06:50 Blood Culture - Preliminary Blood NEGATIVE TO DATE 09/15/21 06:50 Blood Culture - Preliminary Blood NEGATIVE TO DATE A&P Assessment and plan (1) Pneumonia: Clinically she appears to have pneumonia with elevated temperature, abnormality on CT scan right lower lobe, tachycardia. She has some immune suppression as she is on infliximab for history of Crohn's disease. Blood cultures have been drawn. Obtain sputum culture. Covid PCR, which will include influenza was negative Continue Rocephin and azithromycin Oxygen as needed. Currently she is on room air Secondary to her abnormal CT scan of abdomen and pelvis showing a lung abnormality she will undergo CT scanning of her chest today. Status: Acute (2) COPD exacerbation: Active wheezing Change Solu-Medrol to prednisone Continue DuoNeb every 4 hours scheduled, budesonide twice daily Discussed abstaining from smoking. Nicotine patch. Status: Acute (3) Systolic heart failure: History of nonischemic cardiomyopathy. Mild exacerbation. Hold p.o. diuretics currently, continue Lasix 80 mg every 12 hours Await repeat echocardiogram Telemetry BNP elevated above patient's regular baseline as well. Start 1500 cc fluid restriction Status: Acute Qualifiers: Heart failure chronicity: acute on chronic Qualified Code(s): I50.23 - Acute on chronic systolic (congestive) heart failure (4) Hypokalemia: Normal today. Continue to supplement Status: Acute (5) Hypomagnesemia: Supplemented on admission, normal today Status: Acute (6) Diabetes type 2, controlled: Continue sliding scale insulin Status: Acute Plan Nicotine addiction. Encourage abstention Multiple other medical problems as outlined in past medical history Full code Lovenox for DVT prophylaxis Attestations Medical Necessity Statement*: Needs continued hospitalization for IV antibiotics secondary to pneumonia, pulmonary toilet for COPD exacerbation., Treatment of heart failure with IV diuretic Coding Level of Care Code Acute Excellence Specialist for [facility] Diagnoses Pneumonia J18.9 COPD exacerbation J44.1 Systolic heart failure I50.23 Heart failure chronicity: acute on chronic Hypokalemia E87.6 Hypomagnesemia E83.42 Diabetes type 2, controlled E11.9
--- NOTE | 2021-09-16 09:41 | CT_ITS ---
WS: [id number] Exam: CT chest w con* [id number] Date/Time of Exam: 09/16/2021 10:31 AM Reason For Exam: abnormality seen on CT abdomen, fever, pneumonia symptoms, DLP: 968.[address] scans at [facility] use at least one of these dose optimization techniques: automated e xposure control; mA and/or kV adjustment per patient size (includes targeted exams where dose is matc hed to clinical indication); or iterative reconstruction. A 1.5 x 2.1 cm soft tissue nodule measuring approximately 50 Hounsfield units noted at the right christiano hilar region. There is an area of subsegmental atelectasis in the right lower lobe abutting the right heart border. Remaining lung eng were clear. No pleural effusions. No significant mediastinal or hilar lymphadenopathy. The airway is patent. The thoracic aorta is normal in caliber. The central pul monary arteries are clear. No pleural or pericardial effusion. Coronary artery calcifications. The tr achea and mainstem bronchi are patent. Mild cardiac enlargement. No destructive bone lesions. The eleazar st wall is intact. Neurostimulator electrodes extend into the mid thoracic spinal canal. CT/CT chest w con* [id number] IMPRESSION: 1. Area of subsegmental atelectasis seen in the medial right lower lobe which p robably accounts for the abnormality identified on recent abdominal CT scan. 2. 1.5 x 2.1 cm soft tissue nodule seen in the right hilar area with surroundin g infiltrate. This could represent a small area of focal pneumonia. A benign or malignant pulmonary nodule could have the same appearance. Comparison with any prior outside CTs could be helpful. Otherwise 3 month follow-up for surveillan ce could be performed. 3. No lymphadenopathy in the chest. No other significant finding.
[2021-09-16] MEDS: metoprolol succinate ER (24 HR) 25 mg Tablet 12.5 MG PO (10:18)
[2021-09-16] MEDS: potassium chloride ER 20 mEq Tablet 40 MEQ PO ×2 (10:18→17:41)
[2021-09-16] MEDS: pantoprazole DR 40 mg Tablet PO ×2 (10:18→17:41)
[2021-09-16] MEDS: magnesium oxide 400 mg tablet PO ×2 (10:18→17:41)
--- NOTE | 2021-09-16 10:41 | PC.CHAP ---
Pastoral Care Encounter/Spiritual Assessment Type of Contact [] Declined cylinder inspector visit [] Patient/Family/Request visit [] Outpatient visit [] Follow-up visit [] Physician referral [] Code/Alert [x] Routine visit [] Staff referral [] Actively dying [] Patient sleeping [] Family support [] [] Out of room [] Palliative care [] [] Receiving care in room [] Pre-surgical visit [] Trauma [] Long length of stay [] ICU visit [] Other: Relational/Emotional Strength [x] Patient feels connected with others/family/visitors/staff [] Distress [] Loneliness/isolation [] Abandonment Spirituality of Patient [x] Person of Micaela [] Attends Holiness of their Micaela [x] Believes in Prayer [x] Reads Bible or Mormonism materials [] There are Spiritual issues to be addressed Photographic Hand Developer Interventions [x Prayer [xActive listening [x Non-anxious presence []x Spiritual/emotional support [] Crisis/trauma care [] Spiritual counseling [] Bereavement support [] Provided bereavement packet [] Provided Bible/devotional materials [] Provided toy/stuffed animal, coloring book to patient or family member [] Provided Communion [] Anointing/[place] [] Salvation [x Completed spiritual assessment [] Other: Impact on Illness or Injury [] Angry [] Fearful [] Anxious [] Often cries [] Exhaustion [] Unable to work [] Unable to attend restorationist [] Unable to walk/stand [] Unable to read [] Unable to drive [] Unable to eat/drink [] Unable to sleep [] Unable to be with family [] Patient intubated [] Other: Summary Time spent with patient 15 min
[2021-09-16] MEDS: iohexol 300 mg/mL 100 mL Btl IV (10:44)
[2021-09-16] MEDS: cefTRIAXone 1,000 MG in sodium chloride 0.9% (plus) 50 ML 100 MG IV (13:37)
--- NOTE | 2021-09-16 13:39 | USCV_ITS ---
Chivo Treasure Age: 56 Gender: F : 1965 Exam Date: 09/16/2021 15:34 Ordering Phys: Pascual Milton MD Technologist: Tal Worthingtno [place]am [place] [facility] [place] Ind[place]: chf BP: 156 / 72 HR: 106 Rhythm: Sinus Technical Quality: Suboptimal MEASUREMENTS (Male / Female) Normal Values 2D ECHO LV Diastolic Diameter PLAX 5.6 cm 4.2 - 5.9 / 3.9 - 5.3 cm LV Systolic Diameter PLAX 4.7 cm IVS Diastolic Thickness 1.4 cm 0.6 - 1.0 / 0.6 - 0.9 cm IVS Systolic Thickness 1.5 cm LVPW Diastolic Thickness 1.1 cm 0.6 - 1.0 / 0.6 - 0.9 cm LVPW Systolic Thickness 1.2 cm LVOT Diameter 2.1 cm LV Ejection Fraction 2D Teich 24.1 % LV Ejection Fraction MOD 2C 14.1 % LV Ejection Fraction 2C AL 15.8 % LA Diameter 4.5 cm Aorta at Sinotubular Diameter 2.9 cm M-MODE Aortic Annulus Diameter 2.9 cm LA Ao Ratio MM 1.6 MV E Point Septal Separation 1.8 cm DOPPLER AV Peak Velocity 155.0 cm/s LVOT Peak Velocity 71.0 cm/s AV Area Cont Eq vti 1.6 cm squared AV Area Cont Eq pk 1.6 cm squared MV E' Velocity 19.0 cm/s TR Peak Velocity 262.0 cm/s TR Peak Gradient 27.5 mmHg TV Peak E Velocity 114.0 cm/s Right Atrial Pressure 3.0 mmHg Pulmonary Artery Systolic Pressu 30.5 mmHg PV Peak Velocity 82.0 cm/s FINDINGS Left Ventricle The ventricle is poorly seen in the parasternal views. The apical and subcostal views are adequate. There is left ventricular enlargement. There is global hypokinesis which is severe. The overall ejection fraction is 15 to 20%. There is decreased left ventricular wall thickness throughout.Grade II/IV diastolic dysfunction, moderately elevated filling pressures. Right Ventricle Normal right ventricular size and systolic function. Right Atrium Mildly increased right atrial size. Left Atrium Mildly increased left atrial size. Mitral Valve Structurally normal mitral valve. Mild mitral valve regurgitation. No mitral valve stenosis. Aortic Valve Structurally normal trileaflet aortic valve. No aortic valve stenosis. No aortic valve regurgitation. Tricuspid Valve Structurally normal tricuspid valve. Mild tricuspid valve regurgitation. Pulmonic Valve Pulmonic valve not well visualized. Pericardium Normal pericardium without effusion. Aorta Normal ascending aorta dimension. CONCLUSIONS The ventricle is poorly seen in the parasternal views. The apical and subcostal views are adequate. There is left ventricular enlargement. There is global hypokinesis which is severe. The overall ejection fraction is 15 to 20%. There is decreased left ventricular wall thickness throughout.Grade II/IV diastolic dysfunction, moderately elevated filling pressures. Mildly increased right atrial size. Mildly increased left atrial size. Dr. Nicolás Bucio MD (Electronically Signed) Final Date: 16 September 2021 17:28 S
[2021-09-16] MEDS: nicotine 21 mg Patch 1 PATCH TRANSDERMA (13:43)
[2021-09-16] MEDS: azithromycin 500 MG in sodium chloride 0.9% 250 ML 250 MG IV (13:57)
[2021-09-16] MEDS: enoxaparin 40 mg/0.4 mL Syringe SUBCUT (16:34)
[2021-09-16] MEDS: PARoxetine 20 mg Tablet PO (20:03)
[2021-09-16] MEDS: atorvastatin 40 mg Tablet PO (20:03)
[2021-09-16] MEDS: acetaminophen 325 mg Tablet 650 MG PO (23:19)
[2021-09-17] VITALS (12 sets, daily range): BP systolic 97–119; BP diastolic 63–79; PULSE 76–112; RESP 16–21; TEMP 36.4–36.9; O2SAT 91–98
[2021-09-17] MEDS: ipratropium-albuterol 3 mL Neb INHALATION ×2 (04:46→20:13)
[2021-09-17 05:04] LABS: Basophils % 0.1 %; Eosinophils % 0.1 %; Hematocrit 36.3 % (37.0-47.0); Hemoglobin 11.7 g/dL (11.5-15.3); Lymphocytes # 2.5 10^3/uL (0.8-4.8); Lymphocytes % 14.9 %; Mean Corpuscular HGB Conc 32.2 g/dL (30.0-36.0); Mean Corpuscular Hemoglobin 31.5 pg (28.0-34.0); Mean Corpuscular Volume 97.6 fl (81-99); Mean Platelet Volume 9.8 fL (7.4-10.4); Monocytes # 1.1 10^3/uL (0.2-0.9); Monocytes % 6.6 %; Neutrophils # 13.12 10^3/uL (1.8-7.7); Neutrophils % 77.6 %; Nucleated Red Blood Cells % 0 %; Platelet Count 284 10^3/cmm (130-400); Red Blood Count 3.72 10^6/uL (4.1-5.3); Red Cell Distribution Width 12.7 % (12.1-15.1); White Blood Count 16.9 10^3/uL (4.0-10.0)
[2021-09-17 05:21] LABS: Anion Gap 14.6 (5-19); Blood Urea Nitrogen 44 mg/dL (6-20); Calcium 9.5 mg/dL (8.5-10.5); Carbon Dioxide 27 mmol/L (22-29); Chloride 95 mmol/L (98-107); Glomerular Filtration Rate 57.4 mL/min (90-130); Glucose 194 mg/dL (65-115); Osmolality Calculated 292 mOsm/kg (285-295); Potassium 3.6 mmol/L (3.5-5.1); Sodium 133 mmol/L (136-145)
[2021-09-17] MEDS: FUROsemide 10 mg/mL SDV 10mL 80 MG IVP (05:44)
[2021-09-17] MEDS: aspirin 81 mg EC Tablet PO (05:44)
[2021-09-17] MEDS: levothyroxine 75 mcg Tablet PO (05:44)
--- NOTE | 2021-09-17 05:51 | PC.NURSE ---
Patient slept off/on throughout night, AAOx4, no c/o pain but couldn't get comfortable. Patient does not appreciate fluid restriction but recognizes its importance. No new events or needs. Room is clutter free, clean and call light in reach. WIll report to oncoming nurse at shift change.
[2021-09-17] MEDS: pantoprazole DR 40 mg Tablet PO ×2 (08:26→17:53)
[2021-09-17] MEDS: metoprolol succinate ER (24 HR) 25 mg Tablet 12.5 MG PO (08:26)
[2021-09-17] MEDS: magnesium oxide 400 mg tablet PO ×2 (08:26→17:52)
[2021-09-17] MEDS: predniSONE 20 mg Tablet 40 MG PO (08:26)
[2021-09-17] MEDS: potassium chloride ER 20 mEq Tablet 40 MEQ PO (08:26)
[2021-09-17] MEDS: azithromycin 250 mg Tablet 500 MG PO (10:27)
[2021-09-17] MEDS: guaiFENesin 100 mg/5 mL UDC 10 mL 200 MG PO (10:27)
[2021-09-17] MEDS: nystatin powder 15 gm Btl 1 APPLIC TOPICAL (10:47)
--- NOTE | 2021-09-17 12:06 | PM.PN ---
Subjective Subjective: Patient was experiencing multiple bouts of dry cough I did explain her my concerns related to her reduction in EF, she will need cardiology She is agreeable for AICD Blood pressure is soft, held Lasix today she does not look overloaded Leukocytosis noted Currently being treated for pneumonia I did explain the finding of CT scan, pulmonary nodule, follow-up CT scan needed as well Change IV azithromycin to p.o. Patient complained about severe redness and itching around her abdominal folds, I requested nurse to start her on nystatin powder, keep her Tessalon Perles, Robitussin Vitals/I&O/Wt Last Vital Signs Temp 98.1 F 09/17/21 11:30 Pulse 76 09/17/21 11:30 Resp 16 09/17/21 11:30 BP 99/67 09/17/21 11:30 Pulse Ox 94 09/17/21 11:30 09/16/21 09/17/21 09/17/21 22:59 06:59 14:59 Intake Total 685 / 1285 250 / 1535 Balance 685 / 1285 250 / 1535 Physical Exam Narrative: Patient was laying left lateral position Multiple bouts of dry cough Does not look fluid overloaded Clinically looks dry Abdomen soft S1, S2 Diminished bilateral breath sounds without any active wheezing or rhonchi Awake and alert In distress because of multiple bouts of cough Nonfocal neuro exam EOMI, PERRLA Data : 09/17/21 04:13 09/17/21 04:13 A&P Assessment and plan (1) COPD exacerbation: Status: Acute (2) Pneumonia: Status: Acute (3) AURELIO on CPAP: Status: Acute (4) Diabetes type 2, controlled: Status: Acute (5) Hyperlipidemia: Status: Acute (6) Essential hypertension: Status: Acute (7) Systolic heart failure: Status: Acute Qualifiers: Heart failure chronicity: acute on chronic Qualified Code(s): I50.23 - Acute on chronic systolic (congestive) heart failure Plan Dry cough related to pneumonia Currently on room air Continue ceftriaxone and azithromycin Added Tessalon Perles and Robitussin Continue steroids Systolic congestive heart failure without acute exacerbation Hold Lasix and potassium supplementation Clinically looks dry Blood pressure is soft today echo shows further worsening of EF Patient is not endorsing recent angiogram We will stress test with cardiology She is agreeable for AICD placement Her EF has not improved, she is a good candidate for AICD and LifeVest Hypokalemia: Repleted Hypomagnesemia: Repleted Type 2 diabetes Cardiac consistent carb diet Currently has 21 mg nicotine patch for active nicotine addiction Full code DVT prophylaxis Lovenox Hypoxia: Resolved I did explain her the findings of CT scan and echo, Attestations Medical Necessity Statement*: Continue medical management Time Spent in Patient Care: 30mins Coding Level of Care Code Acute Digital Imaging Technician for [facility] Diagnoses COPD exacerbation J44.1 Pneumonia J18.9 AURELIO on CPAP G47.33; Z99.89 Diabetes type 2, controlled E11.9 Hyperlipidemia E78.5 Essential hypertension I10 Systolic heart failure I50.23 Heart failure chronicity: acute on chronic
[2021-09-17] MEDS: cefTRIAXone 1,000 MG in sodium chloride 0.9% (plus) 50 ML 100 MG IV (12:59)
[2021-09-17] MEDS: acetaminophen 325 mg Tablet 650 MG PO ×2 (13:03→23:16)
[2021-09-17] MEDS: nicotine 21 mg Patch 1 PATCH TRANSDERMA (13:04)
[2021-09-17] MEDS: enoxaparin 40 mg/0.4 mL Syringe SUBCUT (15:11)
--- NOTE | 2021-09-17 15:13 | PC.NURSE ---
Dr. Nava at bedside to speak with patient.
--- NOTE | 2021-09-17 15:21 | P.CONIM_ITS ---
Providers/Reason For Consult Consulting Physician/Specialty*: Cardiovascular medicine Reason for Consult*: Request angiogram Requesting Physician: Hospitalist Attending Physician: Pascual Milton MD Primary Care Provider: Sascha Carcamo History of Present Illness History of Present Illness Treasure Waldron is a 56 year old female has a history of a cardio in August of last year she had an echo which revealed that time global hypokinesis with an ejection fraction of 38%. She was also thought to have aortic stenosis, moderate with a valve area of 1.5 cm?. She was admitted on the last day of last month with shortness of breath. She has been diagnosed with pneumonia. She had Covid in June some 3 months ago. She had an echo performed on the last just 3 days ago which revealed an ejection fraction of 15 to 20% with global hypokinesis. She has an underlying left bundle branch block. I did not see any significant aortic valve disease on the echo but it was not a particularly good study. Hospitalist called and asked about an angiogram in preparation for a possible defibrillator. She has a allergic reaction to Entresto apparently. At home she takes a fairly high dose of Lasix 80 mg twice daily along with metolazone, metoprolol, potassium and Aldactone. I do not see that she is on an afterload reducing agent at home. Here in the hospital she is on a beta-ronald, potassium, intravenous Lasix, but no afterload reducing agent. Review of Systems Narrative: She is short of breath but the other review of systems is negative. Medications/Allergies Home Medications Medication Instructions Recorded Confirmed Last Taken Type ascorbic acid (vitamin C) 1,000 mg 1,000 mg PO BID 08/09/20 09/15/21 09/14/21 History tablet aspirin 81 mg tablet,delayed 81 mg PO QAM 08/09/20 09/15/21 09/14/21 History release (Adult Low Dose Aspirin) elderberry fruit 200 mg capsule 200 mg PO DAILY PRN 08/09/20 09/15/21 Unknown History levothyroxine 75 mcg tablet 75 mcg PO QAM 08/09/20 09/15/21 09/14/21 History loratadine 10 mg tablet 10 mg PO BEDTIME 08/09/20 09/15/21 09/14/21 History metformin 500 mg tablet 500 mg PO BID 08/09/20 09/15/21 09/14/21 History pantoprazole 40 mg tablet,delayed 40 mg PO BID tab 08/09/20 09/15/21 09/14/21 History release paroxetine HCl 20 mg tablet 20 mg PO BEDTIME 08/09/20 09/15/21 09/14/21 History albuterol sulfate 90 mcg/actuation 2 puff INHALATION Q6H PRN 04/05/21 09/15/21 Unknown History aerosol inhaler infliximab 100 mg intravenous See Rx Instructions .ROUTE 04/05/21 09/15/21 Unknown History solution (Remicade) .COMPLEX ea metoprolol succinate 25 mg 12.5 mg PO DAILY #90 tab 05/25/21 09/15/21 09/14/21 Rx tablet,extended release 24 hr acetaminophen 500 mg tablet 1,000 - 1,500 mg PO Q4H PRN 09/08/21 09/15/21 Unknown History (Tylenol Extra Strength) cholecalciferol (vitamin D3) 25 25 mcg PO QAM 09/08/21 09/15/21 09/14/21 History mcg (1,000 unit) capsule omega-3 fatty acids 500 mg capsule 500 mg PO BEDTIME 09/08/21 09/15/21 09/14/21 History spironolactone 50 mg tablet 50 mg PO DAILY #90 tab 09/08/21 09/15/21 09/14/21 Rx tramadol 50 mg tablet 50 mg PO Q8H PRN 09/08/21 09/15/21 Unknown History furosemide 40 mg tablet 80 mg PO BID #360 tab 09/13/21 09/15/21 09/14/21 Rx magnesium oxide 400 mg PO BID #60 cap 09/13/21 09/15/21 Unknown Rx potassium chloride 20 mEq 40 meq PO BID #360 tab 09/13/21 09/15/21 09/14/21 Rx tablet,extended release cyclobenzaprine 10 mg tablet 10 mg PO BID PRN 09/15/21 09/15/21 Unknown History metolazone 2.5 mg tablet See Rx Instructions .ROUTE .COMPLEX 09/15/21 09/15/21 09/14/21 History 2.5MG multivitamin 1 tab PO DAILY 09/15/21 09/15/21 09/14/21 History rosuvastatin 10 mg tablet 10 mg PO BEDTIME 09/15/21 09/15/21 09/14/21 History Allergies Allergy/AdvReac Type Severity Reaction Status Date / Time levofloxacin Allergy Unknown Unknown Verified 09/15/21 11:34 sacubitril [From Entresto] Allergy ADR-Itching Verified 09/15/21 11:34 valsartan [From Entresto] Allergy ADR-Itching Verified 09/15/21 11:34 Current Medications Generic Name Dose Route Start Last Admin Trade Name Freq PRN Reason Stop Dose Admin Acetaminophen 650 mg 09/15/21 15:13 09/17/21 13:03 Acetaminophen 325 Mg Tablet PO 650 mg Q6H PRN Administration Mild/Mod Pain Or Temp >/= 101 Albuterol/Ipratropium 3 ml 09/15/21 20:00 09/17/21 11:29 Ipratropium-Albuterol 3 Ml Neb INHALATION Not Given Q4H.RESPIRATORY KATRIN Aspirin 81 mg 09/16/21 06:00 09/17/21 05:44 Aspirin 81 Mg Ec Tablet PO 81 mg QAM KATRIN Administration Atorvastatin Calcium 40 mg 09/15/21 21:00 09/16/21 20:03 Atorvastatin 40 Mg Tablet PO 40 mg BEDTIME KATRIN Administration Azithromycin 500 mg 09/17/21 10:00 09/17/21 10:27 Azithromycin 250 Mg Tablet PO 500 mg DAILY KATRIN Administration Protocol Budesonide 0.5 mg 09/15/21 20:00 09/17/21 11:29 Budesonide 0.5 Mg/2 Ml Neb INHALATION Not Given BID.RESPIRATORY KATRIN Enoxaparin Sodium 40 mg 09/15/21 16:00 09/17/21 15:11 Enoxaparin 40 Mg/0.4 Ml Syringe SUBCUT 40 mg Q24H KATRIN Administration Furosemide 80 mg 09/15/21 18:00 09/17/21 05:44 Furosemide 10 Mg/Ml Sdv 10ml IVP 80 mg Q12H KATRIN Administration Guaifenesin 200 mg 09/17/21 10:00 09/17/21 10:27 Guaifenesin 100 Mg/5 Ml Udc 10 Ml PO 200 mg Q6H PRN Administration COUGH AND CONGESTION Ceftriaxone Sodium 1,000 mg/ 50 mls @ 100 mls/hr 09/15/21 12:15 09/17/21 13:29 Sodium Chloride IV Infused Q24H KATRIN Infusion Protocol Levothyroxine Sodium 75 mcg 04/01/22 06:00 09/17/21 05:44 Levothyroxine 75 Mcg Tablet PO 75 mcg QAM KATRIN Administration Magnesium Oxide 400 mg 09/15/21 18:00 09/17/21 08:26 Magnesium Oxide 400 Mg Tablet PO 400 mg BID KATRIN Administration Metoprolol Succinate 12.5 mg 09/16/21 09:00 09/17/21 08:26 Metoprolol Succinate Er (24 Hr) 25 Mg Tablet PO 12.5 mg DAILY KATRIN Administration Nicotine 1 patch 09/15/21 12:15 09/17/21 13:04 Nicotine 21 Mg Patch TRANSDERMA 1 patch Q24H KATRIN Administration Nystatin 1 applic 09/17/21 11:00 09/17/21 10:47 Nystatin Powder 15 Gm Btl TOPICAL 1 applic BID KATRIN Administration Pantoprazole Sodium 40 mg 09/15/21 18:00 09/17/21 08:[address] 40 Mg Tablet PO 40 mg BID KATRIN Administration Paroxetine HCl 20 mg 09/15/21 21:00 09/16/21 20:03 Paroxetine 20 Mg Tablet PO 20 mg BEDTIME KATRIN Administration Potassium Chloride 40 meq 09/15/21 18:00 09/17/21 08:26 Potassium Chloride Er 20 Meq Tablet PO 40 meq BID KATRIN Administration Prednisone 40 mg 09/17/21 09:00 09/17/21 08:26 Prednisone 20 Mg Tablet PO 40 mg DAILY KATRIN Administration PFSH Acute PFSH: Medical History (Updated 09/17/21 @ 15:33 by Nicolás Bucio MD) Cardiomyopathy Nonischemic, angiogram 2018 no disease Chronic back pain COPD (chronic obstructive pulmonary disease) Crohn disease Diabetes type 2, controlled Essential hypertension GERD (gastroesophageal reflux disease) Hyperlipidemia Hypothyroid Left bundle branch block Morbid obesity AURELIO on CPAP Presence of neurostimulator Systolic heart failure Surgical History (Updated 09/15/21 @ 12:54 by Pascual Milton MD) History of carpal tunnel surgery Previous section Family History Other CAD (coronary artery disease) Hypertension Social History Smoking and tobacco status: current every day smoker Alcohol intake: current Alcohol intake frequency: 0-2 Drinks per Day Vitals/I&O/Wt Last Vital Signs Temp 98.1 F 09/17/21 11:30 Pulse 110 H 09/17/21 14:00 Resp 16 09/17/21 11:30 BP 99/67 09/17/21 11:30 Pulse Ox 94 09/17/21 11:30 09/17/21 09/17/21 09/17/21 06:59 14:59 22:59 Intake Total 250 / 1535 170 / 170 Balance 250 / 1535 170 / 170 Physical Exam Narrative: GENERAL: In general she is talkative and difficult to slow down HEENT: Exam within normal limits. NECK: Supple without jugular vein distention. The carotid upstroke is normal without bruits. BACK: Exam normal. LUNGS: There are a few moist rales in both bases HEART: Regular rate and rhythm. ABDOMEN: Benign without organomegaly or tenderness. EXTREMITIES: No edema. NEUROLOGIC: Exam normal. SKIN: Unremarkable. Data : 09/17/21 04:13 09/17/21 04:13 A&P Assessment and plan (1) Hypomagnesemia: Status: Acute (2) Hypokalemia: Status: Acute (3) COPD exacerbation: Status: Acute (4) Pneumonia: Status: Acute (5) AURELIO on CPAP: Status: Acute (6) Diabetes type 2, controlled: Status: Acute (7) Hyperlipidemia: Status: Acute (8) Essential hypertension: Status: Acute (9) Systolic heart failure: Status: Acute Qualifiers: Heart failure chronicity: acute on chronic Qualified Code(s): I50.23 - Acute on chronic systolic (congestive) heart failure (10) Cardiomyopathy: Status: Acute (11) Morbid obesity: Status: Acute (12) Left bundle branch block: Status: Acute Plan Coronary angiography should be done. Tentatively, I have scheduled this for 830 Sunday morning with . But also to place a catheter across the aortic valve to ensure she does not have significant aortic stenosis. I had an ext ensive conversation with the patient and 5 of her family members all of whom were in the room. These consisted of children and siblings. Coding Level of Care Code New Pt Acute Plug Cutting Machine Operator for Javedg Fwd Patient Type New History Detailed Exam Detailed Medical Decision Making Moderate Complexity Diagnoses Hypomagnesemia E83.42 Hypokalemia E87.6 COPD exacerbation J44.1 Pneumonia J18.9 AURELIO on CPAP G47.33; Z99.89 Diabetes type 2, controlled E11.9 Hyperlipidemia E78.5 Essential hypertension I10 Systolic heart failure I50.23 Heart failure chronicity: acute on chronic Cardiomyopathy I42.9 Morbid obesity E66.01 Left bundle branch block I44.7 Time Spent (min) 40
[2021-09-17 17:01] LABS: Glucose Point of Care 301 mg/dL (70-110)
[2021-09-17] MEDS: benzonatate 100 mg Capsule PO ×2 (17:52→23:16)
[2021-09-17] MEDS: budesonide 0.5 mg/2 mL Neb INHALATION (20:13)
[2021-09-17] MEDS: atorvastatin 40 mg Tablet PO (20:13)
[2021-09-17] MEDS: PARoxetine 20 mg Tablet PO (20:13)
[2021-09-17 20:23] LABS: Glucose Point of Care 276 mg/dL (70-110)
[2021-09-18] VITALS (11 sets, daily range): BP systolic 95–110; BP diastolic 67–76; PULSE 75–116; RESP 16–18; TEMP 36.2–36.7; O2SAT 95–97
[2021-09-18] MEDS: levothyroxine 75 mcg Tablet PO (05:58)
[2021-09-18] MEDS: aspirin 81 mg EC Tablet PO (05:58)
[2021-09-18 06:28] LABS: Glucose Point of Care 178 mg/dL (70-110)
[2021-09-18 06:39] LABS: Basophils % 0.2 %; Eosinophils % 0.2 %; Hematocrit 35.5 % (37.0-47.0); Hemoglobin 11.5 g/dL (11.5-15.3); Lymphocytes # 3.4 10^3/uL (0.8-4.8); Lymphocytes % 26.4 %; Mean Corpuscular HGB Conc 32.4 g/dL (30.0-36.0); Mean Corpuscular Hemoglobin 31.4 pg (28.0-34.0); Mean Platelet Volume 9.5 fL (7.4-10.4); Monocytes % 7.7 %; Neutrophils # 8.24 10^3/uL (1.8-7.7); Neutrophils % 65.1 %; Nucleated Red Blood Cells % 0 %; Platelet Count 291 10^3/cmm (130-400); Red Blood Count 3.66 10^6/uL (4.1-5.3); Red Cell Distribution Width 12.7 % (12.1-15.1); White Blood Count 12.7 10^3/uL (4.0-10.0)
[2021-09-18 07:13] LABS: Anion Gap 16.7 (5-19); Blood Urea Nitrogen 35 mg/dL (6-20); Calcium 9.5 mg/dL (8.5-10.5); Carbon Dioxide 28 mmol/L (22-29); Chloride 97 mmol/L (98-107); Glomerular Filtration Rate 74.2 mL/min (90-130); Glucose 181 mg/dL (65-115); Osmolality Calculated 299 mOsm/kg (285-295); Potassium 3.7 mmol/L (3.5-5.1); Sodium 138 mmol/L (136-145)
[2021-09-18 07:16] LABS: Procalcitonin 0.04 ng/mL (0-0.5)
[2021-09-18] MEDS: ipratropium-albuterol 3 mL Neb INHALATION (08:17)
[2021-09-18] MEDS: budesonide 0.5 mg/2 mL Neb INHALATION (08:17)
[2021-09-18] MEDS: azithromycin 250 mg Tablet 500 MG PO (09:32)
[2021-09-18] MEDS: insulin lispro 100 unit/1 mL SUBCUT ×3 (09:32→18:15)
[2021-09-18] MEDS: potassium chloride ER 20 mEq Tablet PO (09:33)
[2021-09-18] MEDS: magnesium oxide 400 mg tablet PO ×2 (09:33→18:15)
[2021-09-18] MEDS: predniSONE 20 mg Tablet 40 MG PO (09:33)
[2021-09-18] MEDS: pantoprazole DR 40 mg Tablet PO ×2 (09:33→18:15)
[2021-09-18] MEDS: nystatin powder 15 gm Btl 1 APPLIC TOPICAL ×2 (09:34→18:14)
[2021-09-18 10:46] LABS: Glucose Point of Care 251 mg/dL (70-110)
--- NOTE | 2021-09-18 10:47 | PC.NURSE ---
Notified Dr. Pittman of Pressure being low and holding Labetalol.
--- NOTE | 2021-09-18 12:25 | P.PN_ITS ---
Subjective Subjective: Patient is feeling slightly better today, cough has slightly improved No active chest pain Hemodynamically stable, her blood pressure running soft at baseline Plan for coronary angiogram tomorrow Vitals/I&O/Wt Last Vital Signs Temp 98.1 F 09/18/21 11:30 Pulse 75 09/18/21 11:30 Resp 18 09/18/21 11:30 BP 98/72 09/18/21 11:30 Pulse Ox 95 09/18/21 11:30 09/17/21 09/18/21 09/18/21 22:59 06:59 14:59 Intake Total 500 / 670 370 / 370 Balance 500 / 670 370 / 370 Physical Exam Narrative: Patient is sitting at the bedside Clinically dry Currently on room air S1, S2 Abdomen soft No audible stridor or wheezing Dry cough Nonfocal neuro exam Data : 09/18/21 06:20 09/18/21 06:20 A&P Assessment and plan (1) Left bundle branch block: Status: Acute (2) Morbid obesity: Status: Acute (3) Cardiomyopathy: Status: Acute (4) Hypomagnesemia: Status: Acute (5) Hypokalemia: Status: Acute (6) Pneumonia: Status: Acute (7) AURELIO on CPAP: Status: Acute (8) Diabetes type 2, controlled: Status: Acute (9) Hyperlipidemia: Status: Acute (10) Essential hypertension: Status: Acute (11) Systolic heart failure: Status: Acute Qualifiers: Heart failure chronicity: acute on chronic Qualified Code(s): I50.23 - Acute on chronic systolic (congestive) heart failure Plan COPD exacerbation due to pneumonia Community-acquired pneumonia continue ceftriaxone, changed Zithromax to p.o. tablet Afebrile For dry cough she improved with Tessalon and Robitussin CT scan findings were discussed with the patient, she will need outpatient follow-up within [address] scan Active smoker, counseled on smoking cessation Systolic congestive heart failure No acute exacerbation Clinically dry Held Lasix Appreciate cardiology recommendations, she will be kept n.p.o. for coronary angiogram tomorrow She will benefit from AICD Will need metoprolol succinate low-dose at the time of discharge Blood pressure is soft Hypothyroidism: Continue levothyroxine Currently has nicotine patch Potassium repleted Continue prednisone for acute acquired pneumonia and dry cough Appreciate cardio recommendations N.p.o. after midnight Hypoxia resolved DVT prophylaxis with Lovenox Check hemoglobin A1c level Attestations Medical Necessity Statement*: N.p.o. after midnight Angiogram tomorrow Time Spent in Patient Care: 20 Coding Level of Care Code Acute Land Management Forester for Chg Fwd Diagnoses Left bundle branch block I44.7 Morbid obesity E66.01 Cardiomyopathy I42.9 Hypomagnesemia E83.42 Hypokalemia E87.6 Pneumonia J18.9 AURELIO on CPAP G47.33; Z99.89 Diabetes type 2, controlled E11.9 Hyperlipidemia E78.5 Essential hypertension I10 Systolic heart failure I50.23 Heart failure chronicity: acute on chronic
[2021-09-18 13:19] LABS: Estmated Average Glucose 169; Hemoglobin A1C 7.5 % (4.0-6.0)
[2021-09-18] MEDS: nicotine 21 mg Patch 1 PATCH TRANSDERMA ×2 (13:44→20:28)
[2021-09-18] MEDS: cefTRIAXone 1,000 MG in sodium chloride 0.9% (plus) 50 ML 100 MG IV (13:44)
[2021-09-18] MEDS: enoxaparin 40 mg/0.4 mL Syringe SUBCUT ×2 (16:29→16:30)
[2021-09-18 16:47] LABS: Glucose Point of Care 257 mg/dL (70-110)
[2021-09-18] MEDS: metoprolol tartrate 25 mg Tablet 12.5 MG PO (20:27)
[2021-09-18] MEDS: atorvastatin 40 mg Tablet PO (20:27)
[2021-09-18] MEDS: PARoxetine 20 mg Tablet PO (20:28)
[2021-09-18] MEDS: benzonatate 100 mg Capsule PO (20:33)
[2021-09-18 21:18] LABS: Glucose Point of Care 179 mg/dL (70-110)
[2021-09-19] VITALS (40 sets, daily range): BP systolic 88–122; BP diastolic 56–90; PULSE 78–96; RESP 15–34; TEMP 36.5–37.4; O2SAT 93–98
[2021-09-19 05:06] LABS: Anion Gap 14.3 (5-19); Blood Urea Nitrogen 31 mg/dL (6-20); Calcium 9.5 mg/dL (8.5-10.5); Carbon Dioxide 27 mmol/L (22-29); Chloride 99 mmol/L (98-107); Glomerular Filtration Rate 74.2 mL/min (90-130); Glucose 155 mg/dL (65-115); Osmolality Calculated 292 mOsm/kg (285-295); Potassium 4.3 mmol/L (3.5-5.1); Sodium 136 mmol/L (136-145)
[2021-09-19] MEDS: levothyroxine 75 mcg Tablet PO (05:50)
[2021-09-19] MEDS: aspirin 81 mg EC Tablet PO (05:50)
[2021-09-19] MEDS: sodium chloride 0.9% 1,000 ML 50 ML IV (05:51)
--- NOTE | 2021-09-19 06:23 | PC.NURSE ---
SHIFT SUMMARY Has rested off & on. NPO since midnight for angiogram this am. IV fluds of NS started at 50ml/hr rate. am meds given with sip of water. Gets up to bathroom ad magan. Denies pain. Says is hoping to find out what is going on with her heart today. Tells me she has been to numerous times and meds have been changed. Is pleasant and talkative. Occ cough. Received Tessalon at HS with meds
[2021-09-19 06:36] LABS: Glucose Point of Care 184 mg/dL (70-110)
--- NOTE | 2021-09-19 08:24 | XACV_ITS ---
Exam Room: [facility] Ht: 150 cm Wt: 91 kg BSA: 2.00 m2 Gender: Female : 1965 Any Known Allergies: Other Exam Priority: Routine Procedure(s): Procedure Description: Diagnostic procedure Procedure Description: Left Heart Catheterization Procedure Description: Left ventriculography Procedure Description: Coronary Angiography Rupinder FOSTER; Diagnostic Cath Status: Elective Diagnostic Findings * Angiography shows a right coronary dominant system. * The left main, left anterior descending left circumflex and right coronary arteries are free of any significant disease. Conclusions 1. Cardiac Catheterization study revealed no significant coronary artery disease, dilated cardiomyopathy and elevated left ventricular end-diastolic pressure. Recommendations * Continue medical management and risk factor modification. Ventriculography Ejection Fraction: 15.0 % Left Ventriculography Findings: * Left ventriculogram was performed in HAMMOND view. * EF 15 %, estimated. Pressures Phase:Rest AO : 132 / 44 ( 80 ) @ 10:32:00 AM LV : 123 / 31 / 34 @ 10:34:00 AM 122 / 29 / 32 @ 10:35:00 AM Hemodynamic Findings LVEDP is 34 mmHg. Clinical Evaluation EBL: 5mL-10mL Procedural Details Procedure Consent Obtained. Pre-Procedure Time Out. Identified patient by full name and date of as verbalized by the patient/guarantor. Does the consent match the physician's order: Yes. Accurate & Complete Informed Consent: Yes. Inpatient/Outpatient History & Physical on Chart: Yes. If H&P is completed, is and addenduem needed: No; If yes, is the addendum complete: N/A. Visualize and Verify Site with Patient/Guarantor: N/A. Relevant Radiology Images available: Yes. The risks, benefits, and alternatives of sedation and/or procedure were discussed by physician. The patient agrees to continue. Procedure started. [facility] Clinical Fraility Score: 3: Managing Well. 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 Chest Pain Symptom Assessment: Non-anginal Chest Pain. Cardiovascular Instability: No. Correct patient, site and procedure confirmed by cath team. PERRLA. Strong, equal hand senior maintenance machinist bilaterally. Lungs clear x 5 lobes. IV Site on Arrival: 20 gauge in the left anticubital. IV Fluids: 0.9% NaCl at KVO. 50 mL infused prior to wheelabrator operator. Pre Procedural Pulses: bilateral dorsalis pedis was 1+. Pre Procedural Pulses: bilateral posterior tibial was 1+. Oxygen started at 2liters/min via nasal canula. right groin was prepped with chloroprep then draped in the usual sterile fashion. right radial was prepped with chloroprep then draped in the usual sterile fashion. Physician notified. Baseline sample Acquired. HR: 80 BPM. Equipment: 6F - Radial. Cardiac Cath Pack. ACIST Manifold Kit Model BT 2000. Heparinized Saline (2 units/mL), 1000 mL bag. Patient's family in the radiology waiting room. Dr. Yancey will update at the completion of the case. Physician arrived. Physician scrubbed in. Immediate Pre-Procedure Time Out. Correct Patient: Yes; Correct Procedure: Yes; Correct Site: Yes; Correct Patient Position: Yes; Correct Supplies: Yes; Dried Flammable Prep: Yes; Blood Products Available: N/A. Lidocaine 1% infiltrated to the right radial. Arterial access obtained. A 5 korean Ezequiel catheter in over wire. Multiple views taken of left coronary artery. Catheter redirected to the RCA. Multiple views taken of right coronary artery. EDP Sample taken: LV 123/31,34; HR: 86 BPM; SpO2: 98%. LV gram performed in HAM[place]D @ 10 mL/second for a total of 30 mL. EDP Sample taken: LV 122/29,32; HR: 84 BPM; SpO2: 97%. Pullback taken: LV Off; AO Off; Mean: , Peak to Peak: , SEP: ; HR: 87 BPM; SpO2: 98%. Catheter removed over the exchange wire. Dr. Yancey scrubbed out. A TR Band was successful obtaining hemostatsis at the Right Radial artery insertion site. Vital chart was stopped. TR band placed. Hemostasis obtained. Post Procedure: Pulses reassessed and unchanged. PERRLA. Strong, equal hand senior maintenance machinist bilaterally. No VTE prophylaxis required. Medication's Wasted: Lidocaine 1% = 18 mL. Medication's Wasted: Heparin = 1000 units. Medication's Wasted: Nitro = 49.8 mg. Total IV fluids: 53 mL. Post-op diagnosis: Non-Obstructive CAD. Complications: none. Estimated blood loss: 5mL-10mL. Responsiveness - Normal response to verbal stimuli; alert and oriented, PERRLA. Airway - Unaffected, no intervention required; spontaneous ventilation. Circulation: W/N/L, pulses unchanged. Nausea/Vomiting: No. Procedure completed. Patient transferred by wheelchair to CPRU. Access Site Site: Right Radial artery Sheath Size: 6 Fr Hemostasis Method: TR Band Hemostasis Success: Successful Procedure Medications Start: 9:01 AM Stop: 9:01 AM Medication: Versed Amount: 1 mg Route: I.V. Start: 9:01 AM Stop: 9:01 AM Medication: Fentanyl Amount: 25 mcg Route: I.V. Start: 9:02 AM Stop: 9:02 AM Medication: Benadryl Amount: 50 mg Route: I.V. Start: 9:02 AM Stop: 9:02 AM Medication: Versed Amount: 1 mg Route: I.V. Start: 9:03 AM Stop: 9:03 AM Medication: Fentanyl Amount: 25 mcg Route: I.V. Start: 9:16 AM Stop: 9:16 AM Medication: Heparin Amount: 5000 units Route: I.V. Start: 9:14 AM Stop: 9:14 AM Medication: Nitrogylcerin Amount: 200 mcg Route: I.A. I, the attending physician, have reviewed and verified all procedure medications. Yes, all medications given per verbal order History/Risk Factors Hypertension: Yes Dyslipidemia: Yes Peripheral Arterial Disease (PAD): No Myocardial Infarction (ND): No Obesity: Yes Renal Disease: No Tobacco Use: Current/Recent(w/in 1 year) Prior Interventions PCI: No CABG: No Valve Surgery: No Report Signatures Finalized by Nora Yancey MD on 09/26/2021 10:17 AM
--- NOTE | 2021-09-19 08:34 | P.PN_ITS ---
Subjective Subjective: Patient is waiting for angiogram today No overnight events Patient is a bit anxious however she is compensating Cough has improved She is euvolemic Currently on IV fluids at 50 cc/h Vitals/I&O/Wt Last Vital Signs Temp 98.0 F 09/19/21 07:11 Pulse 95 09/19/21 07:38 Resp 16 09/19/21 07:38 BP 93/56 09/19/21 07:11 Pulse Ox 95 09/19/21 07:38 09/18/21 09/19/21 09/19/21 22:59 06:59 14:59 Intake Total 120 / 1128 Balance 120 / 1128 Physical Exam Narrative: Patient is sitting at the bedside No active complaints EOMI, PERRLA Euvolemic S1, S2 No active wheezing or crackles No signs of edema Abdomen soft Pleasant and cooperative Anxious appearing Data : 09/18/21 06:20 09/19/21 04:25 A&P Assessment and plan (1) Left bundle branch block: Status: Acute (2) Morbid obesity: Status: Acute (3) Cardiomyopathy: Status: Acute (4) Hypomagnesemia: Status: Acute (5) Hypokalemia: Status: Acute (6) COPD exacerbation: Status: Acute (7) Pneumonia: Status: Acute (8) AURELIO on CPAP: Status: Acute (9) Diabetes type 2, controlled: Status: Acute Plan Cardiomyopathy, severely reduced EF, will need AICD, plan for angiogram today to rule out coronary ischemia We will follow with cardiology recommendations after angiogram Clinical pneumonia currently doing well on ceftriaxone and azithromycin Dry cough has improved Patient is very motivated to quit smoking Systolic congestive heart failure without acute exacerbation Electrolytes replenished Prednisone to be continued for pneumonia and dry cough N.p.o. today Lovenox DVT prophylaxis Hemoglobin A1c 7.5, she will consider diabetic will need Metformin at discharge Attestations Medical Necessity Statement*: Angiogram today Time Spent in Patient Care: 20min Coding Level of Care Code Acute Lockstitch Cup Setter for g Fwd Diagnoses Left bundle branch block I44.7 Morbid obesity E66.01 Cardiomyopathy I42.9 Hypomagnesemia E83.42 Hypokalemia E87.6 COPD exacerbation J44.1 Pneumonia J18.9 AURELIO on CPAP G47.33; Z99.89 Diabetes type 2, controlled E11.9
--- NOTE | 2021-09-19 08:41 | PC.NURSE ---
Patient left for Manager Sign at 0840
--- NOTE | 2021-09-19 08:48 | PM.PN ---
Subjective Subjective: Patient admitted with PNA and SOB. Echo showed decrease in LV function. Medications: Reviewed: Yes Vitals/I&O/Wt Last Vital Signs Temp 98.0 F 09/19/21 07:11 Pulse 95 09/19/21 07:38 Resp 16 09/19/21 07:38 BP 93/56 09/19/21 07:11 Pulse Ox 95 09/19/21 07:38 09/18/21 09/19/21 09/19/21 22:59 06:59 14:59 Intake Total 120 / 1128 Balance 120 / 1128 Physical Exam Narrative: GENERAL: obese woman laying in bed no acute distress HEENT: Pupils equal round reactive to light. No pallor or icterus. NECK: No JVD, No carotid bruit. CARDIOVASCULAR SYSTEM: S1-S2 regular. No S3 or S4 present. No murmur rubs or gallops. RESPIRATORY SYSTEM: Chest clear to auscultation. No wheezes rhonchi or rubs heard. No use of accessory muscles. ABDOMEN: Soft, nontender and nondistended. Normal bowel sounds present. EXTREMITIES: No cyanosis or edema. No signs of chronic venous insufficiency. PROCESS AUTOMATION ENGINEER: Patient is alert oriented ?3. No focal neurological deficits. Cranial nerves intact. SKIN: Normal turgor and temperature. No breakdown, rash or nail changes noted. PSYCH: Normal insight and judgment. Data : 09/18/21 06:20 09/19/21 04:25 A&P Assessment and plan (1) Cardiomyopathy: Dilated cardiomyopathy NYHA class III -No obstructive CAD on [facility] via right radial , LVEF=15%. (38-->15%) -Plan for life vest -restart lisinopril at 2.5 mg with plan to uptitrate. Entresto caused rash and itching. -start on aldactone 12.5 mg daily in am and possibly discharge on bumex -Plan to add corlanor outpatient. Status: Acute (2) Left bundle branch block: Status: Acute (3) Essential hypertension: Status: Acute (4) Hyperlipidemia: Status: Acute (5) Diabetes type 2, controlled: Status: Acute (6) AURELIO on CPAP: Status: Acute Plan PNA Obesity COPD exacerbation Thank you fo allowing me to participate in patient's care. Please feel free to call with questions or concerns. Attestations Medical Necessity Statement*: needs hospital stay for med titration for CHF, PNA and life vest. Coding Level of Care Code Acute Assistant Executive Housekeeper for Chg Fwd Diagnoses Cardiomyopathy I42.9 Left bundle branch block I44.7 Essential hypertension I10 Hyperlipidemia E78.5 Diabetes type 2, controlled E11.9 AURELIO on CPAP G47.33; Z99.89
--- NOTE | 2021-09-19 08:51 | W.PM.OPSUD ---
Surgery/Procedure H&P Update DATE OF PROCEDURE: September 19, 2021 DATE H&P PERFORMED: 09/17/21 PREOP DIAGNOSIS: Cardiomyopathy with drop in LV function PRIMARY INDICATION FOR PROCEDURE: H/o Non ischemic cardiomyopathy with drop in LV function from 38-->15% PLANNED PROCEDURE: Operation Date: 09/19/21 08:30 Proposed Procedures p Cardiac Catheterization, Left heart catheterization, coronary angiography, left ventriculography(Left) - Nora Yancey MD PATIENT REASSESSED PRIOR TO SEDATION, WITH NO CHANGE NOTED: Yes PHYSICAL EXAM: alert, oriented x 3, clear to auscultation bilaterally and regular rate & rhythm AIRWAY EVAL/ANESTHESIA PLAN: normal airway, ASA III, Monitored Anesthesia, Local Anesthesia, Risks, benefits & alternatives of sedation and/or procedure discussed and Patient agrees to continue as planned
--- NOTE | 2021-09-19 09:58 | PC.NURSE ---
patient transferred to [facility] 3 while awaiting bed assignment. Pt placed on bedside continuous improvement analyst. Vital signs 115/83, 89 heart rate sinus rhythm, 95% on room air. TR band in place to right wrist. No hematoma or oozing noted.
[2021-09-19 10:23] LABS: Magnesium 2.3 mg/dL (1.7-2.3)
[2021-09-19] MEDS: nystatin powder 15 gm Btl 1 APPLIC TOPICAL ×2 (11:21→17:23)
[2021-09-19] MEDS: magnesium oxide 400 mg tablet PO ×2 (11:21→17:22)
[2021-09-19] MEDS: azithromycin 250 mg Tablet 500 MG PO (11:21)
[2021-09-19] MEDS: pantoprazole DR 40 mg Tablet PO ×2 (11:22→17:22)
[2021-09-19] MEDS: potassium chloride ER 20 mEq Tablet PO (11:22)
[2021-09-19] MEDS: predniSONE 20 mg Tablet 40 MG PO (11:22)
[2021-09-19 12:04] LABS: Glucose Point of Care 213 mg/dL (70-110)
[2021-09-19] MEDS: cefTRIAXone 1,000 MG in sodium chloride 0.9% (plus) 50 ML 100 MG IV (12:38)
[2021-09-19] MEDS: acetaminophen 325 mg Tablet 650 MG PO (12:38)
[2021-09-19] MEDS: insulin lispro 100 unit/1 mL SUBCUT ×2 (12:40→17:22)
[2021-09-19 17:19] LABS: Glucose Point of Care 250 mg/dL (70-110)
[2021-09-19 20:00] LABS: Glucose Point of Care 347 mg/dL (70-110)
[2021-09-19] MEDS: atorvastatin 40 mg Tablet PO (21:21)
[2021-09-19] MEDS: PARoxetine 20 mg Tablet PO (21:21)
[2021-09-19] MEDS: ipratropium-albuterol 3 mL Neb INHALATION (23:02)
[2021-09-20] VITALS (7 sets, daily range): BP systolic 101–113; BP diastolic 71–79; PULSE 87–97; RESP 16–25; TEMP 36.6–36.8; O2SAT 97–98
[2021-09-20 03:22] LABS: Basophils % 0.3 %; Eosinophils # 0.1 10^3/uL (0.0-0.8); Eosinophils % 0.7 %; Hematocrit 34.9 % (37.0-47.0); Hemoglobin 10.9 g/dL (11.5-15.3); Lymphocytes # 2.8 10^3/uL (0.8-4.8); Lymphocytes % 26.4 %; Mean Corpuscular HGB Conc 31.2 g/dL (30.0-36.0); Mean Corpuscular Hemoglobin 31.1 pg (28.0-34.0); Mean Corpuscular Volume 99.7 fl (81-99); Mean Platelet Volume 9.7 fL (7.4-10.4); Monocytes # 0.9 10^3/uL (0.2-0.9); Monocytes % 8.6 %; Neutrophils # 6.79 10^3/uL (1.8-7.7); Neutrophils % 63.3 %; Nucleated Red Blood Cells % 0 %; Platelet Count 277 10^3/cmm (130-400); Red Cell Distribution Width 12.4 % (12.1-15.1); White Blood Count 10.7 10^3/uL (4.0-10.0)
[2021-09-20 03:37] LABS: Anion Gap 15.7 (5-19); Blood Urea Nitrogen 29 mg/dL (6-20); Calcium 9.3 mg/dL (8.5-10.5); Carbon Dioxide 25 mmol/L (22-29); Chloride 99 mmol/L (98-107); Glomerular Filtration Rate 86.6 mL/min (90-130); Glucose 131 mg/dL (65-115); Osmolality Calculated 288 mOsm/kg (285-295); Potassium 4.7 mmol/L (3.5-5.1); Sodium 135 mmol/L (136-145)
--- NOTE | 2021-09-20 04:28 | PC.NURSE ---
Pt lying in bed resting with eyes closed. Resp even and non-labored no distress or sob noted. Pt had no c/o pain or discomfort at the present time. No Needs voiced. Call light in reach.
[2021-09-20] MEDS: aspirin 81 mg EC Tablet PO (06:09)
[2021-09-20] MEDS: levothyroxine 75 mcg Tablet PO (06:09)
[2021-09-20 06:32] LABS: Glucose Point of Care 119 mg/dL (70-110)
[2021-09-20] MEDS: ipratropium-albuterol 3 mL Neb INHALATION (08:02)
[2021-09-20] MEDS: budesonide 0.5 mg/2 mL Neb INHALATION (08:03)
[2021-09-20] MEDS: pantoprazole DR 40 mg Tablet PO (09:40)
[2021-09-20] MEDS: potassium chloride ER 20 mEq Tablet PO (09:40)
[2021-09-20] MEDS: lisinopril 2.5 mg Tablet PO (09:40)
[2021-09-20] MEDS: predniSONE 20 mg Tablet 40 MG PO (09:40)
[2021-09-20] MEDS: magnesium oxide 400 mg tablet PO (09:40)
[2021-09-20] MEDS: azithromycin 250 mg Tablet 500 MG PO (09:40)
[2021-09-20] MEDS: metoprolol succinate ER (24 HR) 25 mg Tablet PO (09:40)
[2021-09-20] MEDS: sodium chloride 3.5% neb 4 mL Neb INHALATION (09:50)
--- NOTE | 2021-09-20 11:02 | PM.DCS ---
Discharge Providers Date of Admission: 09/15/21 11:46 Date of Discharge: September 20, 2021 Attending Provider at Admission: Pascual Milton MD Attending Provider at Discharge: Ascencion Pittman MD Primary Care Provider: Sascah Carcamo Diagnoses at Discharge Discharge Diagnosis (1) Cardiomyopathy: Status: Acute Permanent problem details: Nonischemic, angiogram 2019 no disease (2) Left bundle branch block: Status: Acute (3) Essential hypertension: Status: Acute (4) Hyperlipidemia: Status: Acute (5) Diabetes type 2, controlled: Status: Acute (6) AURELIO on CPAP: Status: Acute Reason for Visit Reason for Visit: diff breathing, hurting all over Hospital Course Hospital Course Admitting note of Dr. Milton Treasure Waldron is a 56 year old female who presents with cough, myalgias, and significant chills since last night.? She states the cough has been going on somewhat longer.? She has been wheezing.? There is been no vomiting, diarrhea.? She has had some nausea.? She reports she had Covid in June, and has received 2 vaccinations but not a booster.? She is recently had her cardiac medicines adjusted for concerns of fluid overload.? She reports a mild headache.? She denies any sick contacts at home.? She reports no chest discomfort, only some tightness with her wheezing.? She feels more swollen than usual, which she reports in her abdomen and arms.? She states she does not usually get swelling from her heart failure in her upper extremities. Hospital course Patient was admitted for management of COPD exacerbation related to pneumonia. Pulmonary nodules were noted on CT scan for which she will require outpatient follow-up. Her dry cough improved with use of Tessalon Perles Robitussin and steroids. Echo was requested to evaluate her for systolic congestive heart failure which showed reduction of EF from previous echo. Cardiology was consulted who did angiogram on 09/19 which showed nonobstructive coronary artery atherosclerotic changes. LifeVest has been ordered by Dr. Yancey. Lisinopril added. Patient did not tolerate Entresto because of rash and itchiness. She was asked not to take Entresto at all and start lisinopril. Her systolic blood pressure ranges between 95 to 99 mmHg, low-dose lisinopril added. Patient to follow-up with Dr. Yancey outpatient. She will need AICD in the near future. Electrolytes replenished. Patient has worsening of hemoglobin A1c I have requested her to see primary care physician for addition of Ozempic or Farxiga. She was given prescription for repeat CT scan within 3 months. Please see cath report for further details. Physical Exam Narrative: Patient is sitting at the bedside No active complaints EOMI, PERRLA Euvolemic S1, S2 No active wheezing or crackles No signs of edema Abdomen soft Pleasant and cooperative She was eating her breakfast ? Discharge Data Studies Completed and Pending Completed Studies During Hospitalization Category Date Time Status CT abdomen pelvis w con* [id number] Stat Cat Scan 09/15/21 09:[address] chest w con* [id number] Routine Cat Scan 09/16/21 09:41 Completed XR chest 1V portable [id number] Stat Exams 09/15/21 06:29 Completed CV. echo complete* [id number] Routine Ultrasound 09/16/21 13:39 Completed Pending at discharge Category Date Time Status CUSTOMS INVESTIGATOR request for service Routine Exams 09/19/21 08:24 Taken Sputum Culture and Gram Stain Routine Lab 09/15/21 12:09 Uncollected Radiology Impressions Chest X-Ray 09/15/21 06:29 IMPRESSION: 1. Cardiac enlargement. No acute process. Abdomen/Pelvis CT 09/15/21 09:25 IMPRESSION: 1. No acute abdominal or pelvic abnormalities are identified. 2. No ascites or free air. 3. Normal appendix. 4. Focal area of subsegmental atelectasis versus lymph node along the proximal RIGHT lower lobe bronchus. Chest CT with IV contrast may be necessary to further identify and defined. Chest CT 09/16/21 09:41 IMPRESSION: 1. Area of subsegmental atelectasis seen in the medial right lower lobe which probably accounts for the abnormality identified on recent abdominal CT scan. 2. 1.5 x 2.1 cm soft tissue nodule seen in the right hilar area with surrounding infiltrate. This could represent a small area of focal pneumonia. A benign or malignant pulmonary nodule could have the same appearance. Comparison with any prior outside CTs could be helpful. Otherwise 3 month follow-up for surveillance could be performed. 3. No lymphadenopathy in the chest. No other significant finding. Laboratory Results WBC 10.7 10^3/uL (4.0-10.0) H 09/20/21 02:25 RBC 3.50 10^6/uL (4.1-5.3) L 09/20/21 02:25 Hgb 10.9 g/dL (11.5-15.3) L 09/20/21 02:25 Hct 34.9 % (37.0-47.0) L 09/20/21 02:25 MCV 99.7 fl (81-99) H 09/20/21 02:25 MCH 31.1 pg (28.0-34.0) 09/20/21 02:25 MCHC 31.2 g/dL (30.0-36.0) 09/20/21 02:25 RDW 12.4 % (12.1-15.1) 09/20/21 02:25 Plt Count 277 10^3/cmm (130-400) 09/20/21 02:25 MPV 9.7 fL (7.4-10.4) 09/20/21 02:25 Neut % (Auto) 63.3 % 09/20/21 02:25 Lymph % (Auto) 26.4 % 09/20/21 02:25 [place] % (Auto) 8.6 % 09/20/21 02:25 Eos % (Auto) 0.7 % 09/20/21 02:25 Baso % (Auto) 0.3 % 09/20/21 02:25 Neut # (Auto) 6.79 10^3/uL (1.8-7.7) 09/20/21 02:25 Lymph # (Auto) 2.8 10^3/uL (0.8-4.8) 09/20/21 02:25 [place] # (Auto) 0.9 10^3/uL (0.2-0.9) 09/20/21 02:25 Eos # (Auto) 0.1 10^3/uL (0.0-0.8) 09/20/21 02:25 Baso # (Auto) 0.0 10^3/uL (0.0-0.1) 09/20/21 02:25 Nucleated RBC % (auto) 0 % 09/20/21 02:25 Nucleated RBCs # 0.0 /100WBC 09/20/21 02:25 Sodium 135 mmol/L (136-145) L 09/20/21 02:25 Potassium 4.7 mmol/L (3.5-5.1) 09/20/21 02:25 Chloride 99 mmol/L (98-107) 09/20/21 02:25 Carbon Dioxide 25 mmol/L (22-29) 09/20/21 02:25 Anion Gap 15.7 (5-19) 09/20/21 02:25 BUN 29 mg/dL (6-20) H 09/20/21 02:25 Creatinine 0.7 mg/dL (0.5-0.9) 09/20/21 02:25 GFR Calculation 86.6 mL/min (90-130) L 09/20/21 02:25 Glucose 131 mg/dL (65-115) H 09/20/21 02:25 POC Glucose 119 mg/dL (70-110) H 09/20/21 06:20 Estimat Average Glucose 169 09/18/21 06:20 Hemoglobin A1c 7.5 % (4.0-6.0) H 09/18/21 06:20 Calculated Osmolality 288 mOsm/kg (285-295) 09/20/21 02:25 Lactic Acid 1.4 mmol/L (0.5-2.2) 09/15/21 07:19 Calcium 9.3 mg/dL (8.5-10.5) 09/20/21 02:25 Magnesium 2.3 mg/dL (1.7-2.3) 09/19/21 04:25 Total Bilirubin 0.5 mg/dL (0.15-1.2) 09/16/21 03:18 AST 14 U/L (0-32) 09/16/21 03:18 ALT 12 U/L (0-33) 09/16/21 03:18 Alkaline Phosphatase 49 IU/L (35-105) 09/16/21 03:18 Troponin T Baseline 28 ng/L (0-10) H 09/15/21 07:19 Troponin T 120 Minute 24.16 ng/L (0-10) H 09/15/21 08:40 Delta Troponin T -3.84 ABS# (0-10) L 09/15/21 08:40 Troponin T Hi Sens 6Hr 27.67 ng/L (0-10) H 09/15/21 11:40 Troponin T Hi Sens 6Hr Delta -0.33 ng/L (0-12) L 09/15/21 11:40 NT-Pro-B Natriuret Pep 2853 pg/mL (0-125) H 09/15/21 07:19 Total Protein 8.6 g/dL (6.6-8.7) 09/16/21 03:18 Albumin 4.5 g/dL (3.5-5.2) 09/16/21 03:18 Globulin 4.1 g/dL (1.3-4.6) 09/16/21 03:18 Procalcitonin 0.04 ng/mL (0-0.5) 09/18/21 06:20 TSH 0.68 uIU/mL (0.27-4.20) 09/15/21 11:40 Urine Color Yellow (Yellow) 09/15/21 07:54 Urine Appearance Clear (CLEAR) 09/15/21 07:54 Urine pH 6 (5-7) 09/15/21 07:54 Ur Specific [place] 1.015 (1.005-1.030) 09/15/21 07:54 Urine Protein Neg (Negative) 09/15/21 07:54 Urine Glucose (UA) Norm (Normal) 09/15/21 07:54 Urine Ketones Negative (Negative) 09/15/21 07:54 Urine Blood 2+ (Negative) H 09/15/21 07:54 Urine Nitrate Negative (Negative) 09/15/21 07:54 Urine Bilirubin Neg (Negative) 09/15/21 07:54 Urine Urobilinogen Norm mg/dL (Negative) 09/15/21 07:54 Ur Leukocyte Esterase Negative (Negative) 09/15/21 07:54 Urine RBC 5-10 /hpf (0-2) H 09/15/21 07:54 Urine WBC 0-4 /hpf (0-5) H 09/15/21 07:54 Ur Squamous Epith Cells 15-25 /hpf (0-5) H 09/15/21 07:54 Amorphous Sediment Not Reportable 09/15/21 07:54 Urine Bacteria 1+ /hpf (NONE) H 09/15/21 07:54 Coronavirus 229E (PCR) Not detected (NOT DETECT) 09/15/21 11:55 SARS-CoV-2 (PCR) Not detected (NOT DETECT) 09/15/21 11:55 Vitals Last Vital Signs Temp 98.3 F 09/20/21 07:27 Pulse 92 09/20/21 08:13 Resp 16 09/20/21 08:08 BP 113/71 09/20/21 07:27 Pulse Ox 98 09/20/21 08:08 Discharge Plan Discharge Patient Disposition: Home Condition: Stable Prescriptions: New azithromycin 250 mg Tablet 500 mg PO DAILY Qty: 3 0RF lisinopril 2.5 mg Tablet 2.5 mg PO DAILY Qty: 30 4RF nystatin 100,000 unit/gram powder 1 applic topical TID Qty: 60 0RF Robitussin ER 30 mg/5 mL suspension,extended rel 12 hr 10 ml PO Q12H PRN (Reason: cough) Qty: 89 0RF Continued paroxetine HCl 20 mg tablet 20 mg PO BEDTIME 0RF pantoprazole 40 mg tablet,delayed release (DR/EC) 40 mg PO BID 0RF loratadine 10 mg tablet 10 mg PO BEDTIME 0RF levothyroxine 75 mcg tablet 75 mcg PO QAM 0RF aspirin [Adult Low Dose Aspirin] 81 mg tablet,delayed release (DR/EC) 81 mg PO QAM 0RF ascorbic acid (vitamin C) 1,000 mg tablet 1,000 mg PO BID 0RF albuterol sulfate 90 mcg/actuation HFA aerosol inhaler 2 puff inhalation Q6H PRN (Reason: Shortness Of Breath) 0RF infliximab [Remicade] 100 mg recon soln See Rx Instructions .ROUTE .COMPLEX 0RF Rx Instructions: EVERY 6 WEEKS @ [facility] cholecalciferol (vitamin D3) 25 mcg (1,000 unit) capsule 25 mcg PO QAM 0RF omega-3 fatty acids 500 mg capsule 500 mg PO BEDTIME 0RF tramadol 50 mg tablet 50 mg PO Q8H PRN (Reason: Pain) 0RF magnesium oxide 400 mg magnesium capsule 400 mg PO BID Qty: 60 6RF rosuvastatin 10 mg tablet 10 mg PO BEDTIME 0RF cyclobenzaprine 10 mg tablet 10 mg PO BID PRN (Reason: Spasms) 0RF multivitamin Tablet 1 tab PO DAILY 0RF Changed furosemide 40 mg tablet 40 mg PO BID Qty: 360 1RF Tylenol Extra Strength 500 mg tablet 500 mg PO Q4H PRN (Reason: Pain) Qty: 0 0RF spironolactone 50 mg tablet 25 mg PO DAILY Qty: 90 3RF metformin 500 mg tablet 1,000 mg PO BID Qty: 0 0RF Rx Instructions: Start Metformin 09/21/2021 evening metoprolol succinate 25 mg tablet extended release 24 hr 25 mg PO DAILY Qty: 90 3RF potassium chloride 20 mEq tablet extended release 20 meq PO BID Qty: 180 1RF Discontinued elderberry fruit 200 mg capsule 200 mg PO DAILY PRN (Reason: UNKNOWN) 0RF metolazone 2.5 mg tablet See Rx Instructions .ROUTE .COMPLEX 0RF Rx Instructions: Alternate 2.5mg (1 tab) & 5mg (2 tabs) every other day Discharge Orders: Discharge Order (Routine); Ordered 09/20/21 Ordered By: Ascencion Pittman Other Ambulatory Orders: Basic Metabolic Panel (Routine) Timeframe: 1 Week Facility: [facility] - Location: Lab - Main Lab Ordered By: Nora Yancey Magnesium (Routine) Timeframe: 1 Week Facility: [facility] - Location: Lab - Main Lab Ordered By: Nora Yancey NT Pro B Type Natriuretic Pept (Routine) Timeframe: 1 Week Facility: [facility] - Location: Lab - Main Lab Ordered By: Nora Yancey Referrals: Sascha Carcamo [Primary Care Provider] - (Please follow-up with Dr. Carcamo on September 22 at 1:20P.M. with Check-in at 1:05P.M. If you have any questionsor need to reschedule. Please call Also, you are scheduled for an Chest CT on November 28 at 9:30A.M. Please check-in through the Surgical Services entrance. If you have any questions or need to reschedule. Please call ) Karime Stovall FNP [Nurse Practitioner] - (Please follow-up with Karime Stovall on October 04 at 1:00P.M. If you have any questions or need to reschedule. Please call ) Nora Yancey MD [Physician] - 1 month (Please follow-up with Dr. Yancey on November 08 at 2:30P.M. If you have any questions or need to reschedule. Please call ) Discharge Diet: Cardiac and Low Salt Discharge Activity: Limit activity as instructed Patient Instructions: Lisinopril (By mouth) (Prinivil, Zestril), Dextromethorphan (By mouth), Nystatin/Triamcinolone (On the skin), Azithromycin (By mouth) (Zithromax, Zithromax Tri-Jaime, Zithromax..., Heart Healthy Diet (DC), Heart Catheterization (DC), Chest Pain Stoplight, Opioid Safety, Post Angiogram Home Care Instructions Activity Restrictions/Additional Instructions: Do not lift anything more than 5 lbs for 1 week. Keep the site dry and clean Take medications as prescribed and follow up as scheduled. Start Metformin 09/21/2021 evening. Blood pressure and heart rate; weight log x 2 weeks. You will be set up for cardiac rehab at [facility] (Talk to Karime about it on follow up) Discharge Attestations Time Spent in Discharge Care*: less than 30 min Quality Metrics Clinical Quality Measures [ No reported AMI, CVA or VTE this stay] Coding Level of Care Code Acute Chg FW DC note Diagnoses Cardiomyopathy I42.9 Left bundle branch block I44.7 Essential hypertension I10 Hyperlipidemia E78.5 Diabetes type 2, controlled E11.9 AURELIO on CPAP G47.33; Z99.89
--- NOTE | 2021-09-20 11:18 | P.PN_ITS ---
Subjective Subjective: Patient admitted with PNA and SOB. Echo showed decrease in LV function. s/p LHC yesterday Medications: Reviewed: Yes Vitals/I&O/Wt Last Vital Signs Temp 98.3 F 09/20/21 07:27 Pulse 96 09/20/21 11:11 Resp 16 09/20/21 11:11 BP 101/79 09/20/21 11:11 Pulse Ox 97 09/20/21 11:11 09/19/21 09/20/21 09/20/21 22:59 06:59 14:59 Intake Total 370 / 660 0 / 660 1000 / 1000 Output Total 600 / 600 Balance -230 / 60 0 / 60 1000 / 1000 Physical Exam Narrative: GENERAL: obese woman laying in bed no acute distress HEENT: Pupils equal round reactive to light. No pallor or icterus. NECK: No JVD, No carotid bruit. CARDIOVASCULAR SYSTEM: S1-S2 regular. No S3 or S4 present. No murmur rubs or gallops. RESPIRATORY SYSTEM: Chest clear to auscultation. No wheezes rhonchi or rubs heard. No use of accessory muscles. ABDOMEN: Soft, nontender and nondistended. Normal bowel sounds present. EXTREMITIES: No cyanosis or edema. No signs of chronic venous insufficiency. No significant bruising or hemaoma at right radial access site. SKIP LOAD DRIVER: Patient is alert oriented ?3. No focal neurological deficits. Cranial ne rves intact. SKIN: Normal turgor and temperature. No breakdown, rash or nail changes noted. PSYCH: Normal insight and judgment. Data : 09/20/21 02:25 09/20/21 02:25 Micro: Microbiology 09/15/21 06:50 Blood Culture - Final Blood NO GROWTH AFTER 5 DAYS 09/15/21 06:50 Blood Culture - Final Blood NO GROWTH AFTER 5 DAYS A&P Assessment and plan (1) Cardiomyopathy: Dilated cardiomyopathy NYHA class III -No obstructive CAD on [facility] via right radial , LVEF=15%. (38-->15%) -Plan for life vest on discharge -continue lisinopril at 2.5 mg with plan to uptitrate. Entresto caused rash and itching. -start on aldactone 25 mg daily and discharge on lasix 40 mg BID -BMP in 1 week, f/u with me in 1 month -Plan to add corlanor and cardiac rehab at outpatient. Status: Acute (2) Left bundle branch block: Status: Acute (3) Essential hypertension: Bp soft Status: Acute (4) Hyperlipidemia: Status: Acute (5) Diabetes type 2, controlled: Status: Acute (6) AURELIO on CPAP: Status: Acute Plan PNA Obesity COPD exacerbation Thank you fo allowing me to participate in patient's care. Please feel free to call with questions or concerns. Attestations Medical Necessity Statement*: stable to be discharged Coding Level of Care Code Acute [employer] for g Fwd Diagnoses Cardiomyopathy I42.9 Left bundle branch block I44.7 Essential hypertension I10 Hyperlipidemia E78.5 Diabetes type 2, controlled E11.9 AURELIO on CPAP G47.33; Z99.89
[2021-09-20 11:59] LABS: Glucose Point of Care 226 mg/dL (70-110)
[2021-09-20] MEDS: insulin lispro 100 unit/1 mL SUBCUT (12:31)
--- NOTE | 2021-09-20 15:53 | PC.NURSE ---
Discharge Note Patient discharged to home via wheelchair accompanied by spouse. Discharge instructions reviewed with patient and/or field representatives director. Mobile pharmacy medications and/or prescriptions provided. Belongings/home medications returned.
== END 2021-09-20 15:55 | disposition home or self-care (01) | DRG 193 ==
LOC: ER 13:04 → MEDSURG 14:39 → CSU 09-19 13:09
PROVIDERS: Internal Medicine Cardiovascular Disease; Admitting Provider Internal Medicine; Emergency Provider Family Medicine; PCP Family Medicine; Visit Provider Internal Medicine
PROC: 4A023N7 Measurement of Cardiac Sampling and Pressure, Left Heart, Percutaneous Approach (ICD-10-PCS; principal; 2021-09-19 08:30)
DX: J18.9 Pneumonia, unspecified organism (principal); I50.23 Acute on chronic systolic (congestive) heart failure; Z68.41 Body mass index [BMI] 40.0-44.9, adult; J44.1 Chronic obstructive pulmonary disease with (acute) exacerbation; J44.0 Chronic obstructive pulmonary disease with (acute) lower respiratory infection; K50.90 Crohn's disease, unspecified, without complications; D84.821 Immunodeficiency due to drugs; I42.8 Other cardiomyopathies; I25.10 Atherosclerotic heart disease of native coronary artery without angina pectoris; I11.0 Hypertensive heart disease with heart failure; G47.33 Obstructive sleep apnea (adult) (pediatric); E66.01 Morbid (severe) obesity due to excess calories; F17.210 Nicotine dependence, cigarettes, uncomplicated; E87.6 Hypokalemia; E83.42 Hypomagnesemia; Z96.82 Presence of neurostimulator; Z79.899 Other long term (current) drug therapy; E11.9 Type 2 diabetes mellitus without complications; Z79.82 Long term (current) use of aspirin; R91.8 Other nonspecific abnormal finding of lung field; Z99.89 Dependence on other enabling machines and devices; E03.9 Hypothyroidism, unspecified; I44.7 Left bundle-branch block, unspecified; I35.0 Nonrheumatic aortic (valve) stenosis
CPT/HCPCS: 36415; 36416; 71045; 71260; 74177; 80048; 80053; 81001; 82962; 83036; 83605; 83735; 83880; 84145; 84443; 84484; 85025; 87040; 87635; 93005; 93306; 93458; 94640; 96365; 96367; 96372; 96375; 99285; C1769; C1887; C1894; J0456; J0696; J1200; J1644; J1650; J1815; J1940; J2250; J2930; J3010; J3475; J3490; J7030; J7050; J7512; J7626; Q0144; Q9967

== ENCOUNTER → 2021-10-04 14:24 | Outpatient (BNVA) | payer OTHER, SELFPAY | PROVIDERS: PCP Family Medicine; Visit Provider Nurse Practitioner Family | DX: Z09 Encounter for follow-up examination after completed treatment for conditions other than malignant neoplasm (principal); I42.9 Cardiomyopathy, unspecified | CPT/HCPCS: 36415; 80048; 83880 ==

== ENCOUNTER 2021-10-18 18:03 | Inpatient (IN) | payer OTHER, SELFPAY ==
[2021-10-18 19:15] LABS: Basophils % 0.3 %; Eosinophils % 0.2 %; Hematocrit 38.7 % (37.0-47.0); Hemoglobin 12.5 g/dL (11.5-15.3); Lymphocytes % 8.3 %; Mean Corpuscular HGB Conc 32.3 g/dL (30.0-36.0); Mean Corpuscular Hemoglobin 30.8 pg (28.0-34.0); Mean Corpuscular Volume 95.3 fl (81-99); Mean Platelet Volume 9.5 fL (7.4-10.4); Monocytes # 0.2 10^3/uL (0.2-0.9); Monocytes % 1.7 %; Neutrophils # 10.19 10^3/uL (1.8-7.7); Neutrophils % 88.8 %; Nucleated Red Blood Cells % 0 %; Platelet Count 290 10^3/cmm (130-400); Red Blood Count 4.06 10^6/uL (4.1-5.3); Red Cell Distribution Width 12.8 % (12.1-15.1); White Blood Count 11.5 10^3/uL (4.0-10.0)
[2021-10-18 19:31] LABS: D Dimer 2.84 ug/mIFEU (0-0.59)
[2021-10-18 19:46] LABS: Procalcitonin 0.03 ng/mL (0-0.5)
[2021-10-18 19:58] LABS: Alanine Aminotransferase 14 U/L (0-33); Albumin Level 4.4 g/dL (3.5-5.2); Alkaline Phosphatase 44 IU/L (35-105); Aspartate Amino Transferase 16 U/L (0-32); Blood Urea Nitrogen 19 mg/dL (6-20); Calcium 9.8 mg/dL (8.5-10.5); Carbon Dioxide 20 mmol/L (22-29); Chloride 100 mmol/L (98-107); Globulin 4.1 g/dL (1.3-4.6); Glomerular Filtration Rate 86.6 mL/min (90-130); Glucose 179 mg/dL (65-115); Iron 59 ug/dL (37-145); Osmolality Calculated 293 mOsm/kg (285-295); Percent Saturation 14.6 % (20-50); Sodium 138 mmol/L (136-145); Total Bilirubin 0.4 mg/dL (0.15-1.2); Total Iron Binding Capacity 403 mcg/dl; Total Protein 8.5 g/dL (6.6-8.7); Unsaturated Iron Binding 344 ug/dL (112-347)
--- NOTE | 2021-10-18 19:58 | PM.HP ---
Providers/Chief Complaint Admitting Physician: Salvador Chung MD Primary Care Provider: Sascha Carcamo Chief Complaint: Low Ejection History of Present Illness Treasure Waldron is a 56 year old female who has established history of reduced ejection fraction heart failure, recent coronary angiography revealed nonobstructive coronary to disease, patient is following up with Dr. Yancey, she does have LifeVest which he wears every day, went for her cardiac rehab appointment today, became extremely short of breath when she entered the facility, became hypoxic, she was referred to the nearby ER and sent to the [facility] as her inspecting supervisor is Dr. Yancey. At the time of my interview patient is telling me that her symptoms got worse 3 days ago and before that she was struggling with shortness of breath on exertion, she cannot lay flat, she does have orthopnea and PND, she is waiting on new equipment for her sleep apnea, she has been compliant with her medications. No recent chest pain, nausea, vomiting, fever. She has quit smoking. She is using nicotine patch. Her PCP has changed her spironolactone dosage(now taking 2 tablets 0.5 mg of Bumex every day). Prior to Sunday she was taking 0.5 mg of Bumex 2 tablets a day along 2 tablets of spironolactone, she would take 1 tablet of spironolactone on alternate days. Patient is stating that lately she has been noticing low heart rate in low 40s and her systolic blood pressure was 70 to 80s/60smmhg. However she never experienced dizziness, syncope, chest pain or confusion. Her shortness of breath has been getting worse, she can hardly take 10-15 steps without symptoms. She does not require oxygen usually. Today when she walked into the facility for cardiac rehab she became short of breath, she was wheezing, her complexion changed her O2 saturation was in low 80s that prompted her ER visit At the time of my evaluation patient's blood pressure is 105/70 mmHg, she is asymptomatic, cardiac wheezing has improved with DuoNeb treatment, I have noticed high D-dimer requested CTA chest and venous Dopplers, She is saturating well on room air, bilateral breath sounds without active rhonchi or crackles or wheezing She is very pleasant, she does have right arm nicotine patch Patient is stating she is leading a sedentary lifestyle because of dyspnea on exertion Review of Systems Const: Reports: body aches and fatigue; Denies: fever(s) Eyes: Denies: change in vision ENMT: Denies: throat pain Card: Reports: dyspnea on exertion and orthopnea GI: Denies: abdominal pain : Denies: flank pain Musc: Denies: neck pain Skin/Breast: Denies: skin pain Neuro: Denies: headache(s) Psych: Denies: anxiety Endo: Denies: polyuria Oleksandr/Lymph: Denies: easy bruising All/Imm: Denies: urticaria Medications/Allergies Home Medications Medication Instructions Recorded Confirmed Last Taken Type ascorbic acid (vitamin C) 1,000 mg 1,000 mg PO BID 08/09/20 10/04/21 09/14/21 History tablet aspirin 81 mg tablet,delayed 81 mg PO QAM 08/09/20 10/04/21 09/14/21 History release (Adult Low Dose Aspirin) levothyroxine 75 mcg tablet 75 mcg PO QAM 08/09/20 10/04/21 09/14/21 History loratadine 10 mg tablet 10 mg PO BEDTIME 08/09/20 10/04/21 09/14/21 History pantoprazole 40 mg tablet,delayed 40 mg PO BID tab 08/09/20 10/04/21 09/14/21 History release paroxetine HCl 20 mg tablet 20 mg PO BEDTIME 08/09/20 10/04/21 09/14/21 History albuterol sulfate 90 mcg/actuation 2 puff INHALATION Q6H PRN 04/05/21 10/04/21 Unknown History aerosol inhaler infliximab 100 mg intravenous See Rx Instructions .ROUTE 04/05/21 10/04/21 Unknown History solution (Remicade) .COMPLEX ea cholecalciferol (vitamin D3) 25 25 mcg PO QAM 09/08/21 10/04/21 09/14/21 History mcg (1,000 unit) capsule omega-3 fatty acids 500 mg capsule 500 mg PO BEDTIME 09/08/21 10/04/21 09/14/21 History tramadol 50 mg tablet 50 mg PO Q8H PRN 09/08/21 10/04/21 Unknown History magnesium oxide 400 mg PO BID #60 cap 09/13/21 10/04/21 Unknown Rx cyclobenzaprine 10 mg tablet 10 mg PO BID PRN 09/15/21 10/04/21 Unknown History multivitamin 1 tab PO DAILY 09/15/21 10/04/21 09/14/21 History rosuvastatin 10 mg tablet 10 mg PO BEDTIME 09/15/21 10/04/21 09/14/21 History acetaminophen 500 mg tablet 500 mg PO Q4H PRN #0 tab 09/20/21 10/04/21 Unknown Rx (Tylenol Extra Strength) azithromycin 250 mg tablet 500 mg PO DAILY #3 tab 09/20/21 10/04/21 Unknown Rx dextromethorphan polistirex 30 10 ml PO Q12H PRN #89 ml 09/20/21 10/04/21 Unknown Rx mg/5 mL oral susp ext.release 12hr (Robitussin ER) metformin 500 mg tablet 1,000 mg PO BID #0 tab 09/20/21 10/04/21 09/14/21 Rx metoprolol succinate 25 mg 25 mg PO DAILY #90 tab 09/20/21 10/04/21 09/14/21 Rx tablet,extended release 24 hr nystatin 100,000 unit/gram topical 1 applic TOPICAL TID #60 g 09/20/21 10/04/21 Unknown Rx powder potassium chloride 20 mEq 20 meq PO BID #180 tab 09/20/21 10/04/21 09/14/21 Rx tablet,extended release spironolactone 50 mg tablet 25 mg PO DAILY #90 tab 09/20/21 10/04/21 09/14/21 Rx furosemide 40 mg tablet 20 mg PO DAILY #360 tab 09/28/21 10/04/21 Unknown Rx bumetanide 0.5 mg tablet 0.5 mg PO BID #270 tab 10/06/21 Unknown Rx Allergies Allergy/AdvReac Type Severity Reaction Status Date / Time levofloxacin Allergy Unknown Unknown Verified 10/04/21 10:22 sacubitril [From Entresto] Allergy ADR-Itching Verified 10/04/21 10:22 valsartan [From Entresto] Allergy ADR-Itching Verified 10/04/21 10:22 PFSH Acute PFSH: Medical History Cardiomyopathy Nonischemic, angiogram 2018 no disease Chronic back pain COPD (chronic obstructive pulmonary disease) Crohn disease Diabetes type 2, controlled Essential hypertension GERD (gastroesophageal reflux disease) Hyperlipidemia Hypothyroid Left bundle branch block Morbid obesity AURELIO on CPAP Presence of neurostimulator Systolic heart failure Surgical History History of carpal tunnel surgery Previous section Family History Other CAD (coronary artery disease) Hypertension Social History Smoking and tobacco status: current every day smoker Alcohol intake: current Alcohol intake frequency: 0-2 Drinks per Day Vitals/I&O/Wt Weight last 48 hrs Weight 94.801 kg Physical Exam Narrative: Very pleasant cooperative female Sitting at the bedside Patient is stating that she cannot lay flat Her lungs on auscultation sound clear without adventitious rhonchi or crackles or wheezing Distended abdomen, visceral obesity Trace edema of legs Pleasant and cooperative NIH 0 Nonfocal neuro exam EOMI, PERRLA O2 saturation 97% on room air No joint swelling Right arm nicotine patch Data : 10/18/21 18:57 10/18/21 18:57 Micro: Microbiology 10/18/21 19:00 Blood Culture - Preliminary Blood SPECIMEN COLLECTED 10/18/21 18:57 Blood Culture - Preliminary Blood SPECIMEN COLLECTED A&P Assessment and plan (1) Dyspnea on exertion: Status: Acute (2) Pulmonary nodule: Status: Acute (3) Left bundle branch block: Status: Acute (4) Cardiomyopathy: Status: Acute Plan Dyspnea on exertion due to underlying cardiomyopathy Combined systolic and diastolic heart failure/cardiomyopathy Nonischemic cardiomyopathy Patient is awaiting LifeVest Has quit smoking No active chest pain Afebrile Secondary to high D-dimer I have requested CTA chest rule out PE We will also get venous Dopplers Hemoglobin is stable She would need optimization of her medicines for congestive heart failure, she has not tolerated Entresto in the past, patient is stating her lisinopril has been discontinued because of low blood pressure I would go ahead and keep her on 1 mg of Bumex for now, clinically I do not see extreme case of fluid overload, her systolic blood pressure ranging between 90 to 99 mmHg, She is also waiting for her sleep apnea equipment, Might need home O2 eval before discharge If her symptoms are not improving with optimization of her medications might need right heart cath for evaluation for pulmonary hypertension Cardiac consistent carb diet Fluid restriction Low-sodium diet Full code DVT prophylaxis Lovenox We will request twelve-lead EKG Please note patient is a smoker and has pulmonary nodules, which were detected on previous CT lung scan She would definitely benefit from cardiac/pulm rehab Attestations Medical Necessity Statement*: Anticipating discharge within [address] chest rule out PE she has dyspnea on exertion which could be related to underlying worsening of cardiomyopathy Time Spent in Patient Care: 40mins Coding Level of Care Code Acute Evs Manager for Javedg Fwd Diagnoses Dyspnea on exertion R06.00 Pulmonary nodule R91.1 Left bundle branch block I44.7 Cardiomyopathy I42.9
[2021-10-18 20:10] LABS: NT Pro B Type Natriuretic Pept 3963 pg/mL (0-125)
--- NOTE | 2021-10-18 20:34 | USCV_ITS ---
Treasure Waldron Age: 56 Gender: F : 1965 Exam Date: 10/18/2021 21:05 Ordering Phys: Ascencion Pittman MD Technologist: JUANITO Exam Location: [facility] [place] Indication: Elevated D Dimer PROCEDURES: Venous duplex imaging was performed in bilateral lower extremities. The following venous structures were evaluated: common femoral vein, profunda vein, proximal portion of the greater saphenous vein, superficial femoral vein, and the popliteal vein. In addition, the posterior tibial and peroneal trunk were evaluated. Serial compression, augmentation maneuvers, and spectral Doppler flow evaluation were performed. FINDINGS: The veins were found to be easily compressible with spontaneous blood flow. Non pulsatile flow pattern. CONCLUSIONS No evidence of DVT in the above-mentioned identifiable veins. Dr Alexis Weldon MD [facility] (Electronically Signed) Final Date: 19 Oct 2021 18:11 S
--- NOTE | 2021-10-18 20:34 | CTR_ITS ---
PROCEDURE INFORMATION: Exam: CTA Chest With Contrast Exam date and time: 10/19/2021 12:23 AM Age: 56 years old Clinical indication: Shortness of breath; Prior surgery; Surgery date: 6+ months; Surgery type: Defib and hm implanted; Additional info: Hypoxia TECHNIQUE: Imaging protocol: Computed tomographic angiography of the chest with contrast. 3D rendering (Not supervised by radiologist): MIP and/or 3D reconstructed images were created by the technologist. Radiation optimization: All CT scans at this facility use at least one of these dose optimization techniques: automated exposure control; mA and/or kV adjustment per patient size (includes targeted exams where dose is matched to clinical indication); or iterative reconstruction. Contrast material: OMNI 350; Contrast volume: 95 ml; Contrast route: INTRAVENOUS (IV); COMPARISON: CT chest w con* [id number] 09/16/2021 10:46 AM RADIATION DOSE METRICS: Total DLP (mGy-cm): 625.15 FINDINGS: Pulmonary arteries: No pulmonary embolism. Aorta: No aortic dissection. Lungs: Unremarkable. No consolidation. No masses. Pleural spaces: Unremarkable. No pneumothorax. No pleural effusion. Heart: There is mild cardiomegaly. Lymph nodes: Unremarkable. No enlarged lymph nodes. Bones/joints: Unremarkable. No acute fracture. Soft tissues: Unremarkable. CT/CT angio chest PE protcl [id number] IMPRESSION: 1. No pulmonary embolism. 2. No aortic dissection. 3. Mild cardiomegaly.
--- NOTE | 2021-10-18 21:32 | ECG_ITS ---
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 Measurements Intervals [place] Rate: 95 P: 74 OK: 173 QRS: -13 QRSD: 172 T: 53 QT: 424 QTc: 535 Interpretive Statements SINUS RHYTHM LEFT BUNDLE BRANCH BLOCK [120+ ms QRS DURATION, 80+ ms Q/S IN V1/V2, 85+ ms R IN I/aVL/V5/V6] Compared to ECG 09/15/2021 18:53:03 Sinus tachycardia no longer present First degree AV block no longer present Atrial abnormality no longer present Electronically Signed On 10-18-2021 22:32:51 CDT by Brown Philip M.D. [id number]
[2021-10-18] MEDS: atorvastatin 40 mg Tablet PO (21:53)
[2021-10-18] MEDS: PARoxetine 20 mg Tablet PO (21:53)
[2021-10-18] MEDS: famotidine 20 mg/2 mL INJ IVP (21:54)
[2021-10-18] MEDS: FUROsemide 10 mg/mL SDV 4mL 40 MG IVP (21:54)
[2021-10-18] MEDS: enoxaparin 40 mg/0.4 mL Syringe SUBCUT (21:55)
[2021-10-18 22:27] LABS: Glucose Point of Care 233 mg/dL (70-110)
[2021-10-18] MEDS: insulin lispro 100 unit/1 mL SUBCUT (22:27)
[2021-10-18 22:29] VITALS: PULSE 96; RESP 18; O2SAT 99
[2021-10-19] VITALS (12 sets, daily range): BP systolic 99–112; BP diastolic 56–77; PULSE 88–101; RESP 18–27; TEMP 36.7–37.2; O2SAT 89–98
[2021-10-19 00:17] LABS: Adenovirus Not Detected (NOT DETECT); Chlamydia Pneumoniae Not Detected (NOT DETECT); Coronavirus 229E,HKU1,NL63,OC4 Not Detected (NOT DETECT); Human Metapneumovirus Not Detected (NOT DETECT); Human Rhinovirus/Enterovirus Not Detected (NOT DETECT); Influenza A Not Detected (NOT DETECT); Influenza A H1 Not Detected (NOT DETECT); Influenza A H1-2009 Not Detected (NOT DETECT); Influenza A H3 Not Detected (NOT DETECT); Influenza B Not Detected (NOT DETECT); Mycoplasma Pneumoniae Not Detected (NOT DETECT); Parainfluenza Virus Type 1 Not Detected (NOT DETECT); Parainfluenza Virus Type 2 Not Detected (NOT DETECT); Parainfluenza Virus Type 3 Not Detected (NOT DETECT); Parainfluenza Virus Type 4 Not Detected (NOT DETECT); Respiratory Syncytial Virus A Not Detected (NOT DETECT); Respiratory Syncytial Virus B Not Detected (NOT DETECT); SARS-COV-2 Not Detected (NOT DETECT)
[2021-10-19] MEDS: iohexol 350 mg/mL 100 mL Btl IV (00:30)
[2021-10-19 05:24] LABS: Basophils % 0.1 %; Hemoglobin 11.6 g/dL (11.5-15.3); Lymphocytes # 1.1 10^3/uL (0.8-4.8); Lymphocytes % 10.9 %; Mean Corpuscular HGB Conc 32.2 g/dL (30.0-36.0); Mean Corpuscular Hemoglobin 30.5 pg (28.0-34.0); Mean Corpuscular Volume 94.7 fl (81-99); Monocytes # 0.6 10^3/uL (0.2-0.9); Neutrophils # 8.31 10^3/uL (1.8-7.7); Neutrophils % 82.4 %; Nucleated Red Blood Cells % 0 %; Platelet Count 285 10^3/cmm (130-400); Red Cell Distribution Width 12.8 % (12.1-15.1); White Blood Count 10.1 10^3/uL (4.0-10.0)
[2021-10-19 05:44] LABS: Add Urine Microscopic? NO; Charge for UA Resulting for Rev
[2021-10-19] MEDS: levothyroxine 75 mcg Tablet PO (05:45)
[2021-10-19] MEDS: aspirin 81 mg EC Tablet PO (05:45)
[2021-10-19] MEDS: FUROsemide 10 mg/mL SDV 4mL 40 MG IVP (05:46)
[2021-10-19] MEDS: famotidine 20 mg/2 mL INJ IVP ×2 (05:46→17:07)
[2021-10-19 05:52] LABS: Alanine Aminotransferase 15 U/L (0-33); Albumin Level 4.5 g/dL (3.5-5.2); Alkaline Phosphatase 45 IU/L (35-105); Anion Gap 16.1 (5-19); Aspartate Amino Transferase 18 U/L (0-32); Blood Urea Nitrogen 22 mg/dL (6-20); Calcium 9.6 mg/dL (8.5-10.5); Carbon Dioxide 24 mmol/L (22-29); Chloride 103 mmol/L (98-107); Cholesterol 139 mg/dL (0-200); Globulin 3.1 g/dL (1.3-4.6); Glomerular Filtration Rate 86.6 mL/min (90-130); Glucose 157 mg/dL (65-115); HDL Cholesterol 58 mg/dL (60-100); LDL Cholesterol Calculated 64 mg/dL (50-129); Osmolality Calculated 295 mOsm/kg (285-295); Potassium 4.1 mmol/L (3.5-5.1); Sodium 139 mmol/L (136-145); Total Bilirubin 0.4 mg/dL (0.15-1.2); Total Protein 7.6 g/dL (6.6-8.7); Triglycerides 87 mg/dL (0-150); VLDL Cholestrol Calculation 17 mg/dL (0-30)
[2021-10-19 06:11] LABS: Glucose Point of Care 146 mg/dL (70-110)
[2021-10-19 06:19] LABS: Bilirubin Urine Neg (Negative); Blood Urine Neg (Negative); Glucose Urine UA Norm (Normal); Ketones Urine Negative (Negative); Leukocyte Esterase Urine Negative (Negative); Nitrate Urine Negative (Negative); Protein Urine Neg (Negative); Urine Appearance Clear (CLEAR); Urine Color Straw (Yellow); Urobilinogen Urine Norm (Negative); pH Urine 5 (5-7)
[2021-10-19] MEDS: ferrous gluconate 324 mg Tablet PO ×2 (08:36→17:07)
[2021-10-19] MEDS: pantoprazole DR 40 mg Tablet PO ×2 (08:36→17:17)
[2021-10-19] MEDS: metoprolol succinate ER (24 HR) 25 mg Tablet 12.5 MG PO ×2 (08:36→17:17)
[2021-10-19] MEDS: potassium chloride ER 20 mEq Tablet PO ×2 (08:36→17:17)
[2021-10-19] MEDS: spironolactone 25 mg Tablet PO (08:36)
[2021-10-19] MEDS: insulin lispro 100 unit/1 mL SUBCUT ×3 (08:36→17:07)
--- NOTE | 2021-10-19 10:22 | PC.CHAP ---
Pastoral Care Encounter/Spiritual Assessment Type of Contact [] Declined slip maker visit [] Patient/Family/Request visit [] Outpatient visit [] Follow-up visit [] Physician referral [] Code/Alert [x] Routine visit [] Staff referral [] Actively dying [] Patient sleeping [] Family support [] [] Out of room [] Palliative care [] [] Receiving care in room [] Pre-surgical visit [] Trauma [] Long length of stay [] ICU visit [] Other: Relational/Emotional Strength [] Patient feels connected with others/family/visitors/staff [] Distress [] Loneliness/isolation [] Abandonment Spirituality of Patient [] Person of Micaela [] Attends Denominational of their Micaela [] Believes in Prayer [] Reads Bible or Amish materials [] There are Spiritual issues to be addressed Shot Hole Shooter Interventions [x] Prayer [] Active listening [] Non-anxious presence [] Spiritual/emotional support [] Crisis/trauma care [] Spiritual counseling [] Bereavement support [] Provided bereavement packet [] Provided Bible/devotional materials [] Provided toy/stuffed animal, coloring book to patient or family member [] Provided Communion [] Anointing/[place] [] Salvation [x] Completed spiritual assessment [] Other: Impact on Illness or Injury [] Angry [] Fearful [] Anxious [] Often cries [] Exhaustion [] Unable to work [] Unable to attend adventism [] Unable to walk/stand [] Unable to read [] Unable to drive [] Unable to eat/drink [] Unable to sleep [] Unable to be with family [] Patient intubated [] Other: Summary Time spent with patient
[2021-10-19 11:20] LABS: Glucose Point of Care 164 mg/dL (70-110)
--- NOTE | 2021-10-19 12:36 | P.PN_ITS ---
Subjective Subjective: Seen at bedside today. Patient laying down comfortably in bed without having any difficulty in breathing able to have complete conversation for over 10 minutes with occasional episodes of cough. States on minimal ambulation she becomes exhausted and feels palpitations. States multiple medications have been changed over last 2 to 3 weeks since her discharge. States she was put on Bumex 0.5 mg times a day and spironolactone 25 mg 2 times a day alternating with 1 time a day by cardiology service which was later changed by her primary care provider to spironolactone 25 mg once a day for 7 days a week given low blood pressures and bradycardia and high dose of metoprolol was discontinued. States that home since the latest changes in the medications he is found her heart rate running in more than 100s, getting exhausted and difficulty in breathing on minimal ambulation. Denies any active chest pain. Vitals/I&O/Wt Last Vital Signs Temp 98.4 F 10/19/21 08:35 Pulse 92 10/19/21 11:26 Resp 20 H 10/19/21 11:26 BP 99/56 10/19/21 11:26 Pulse Ox 95 10/19/21 11:26 10/18/21 10/19/21 10/19/21 22:59 06:59 14:59 Intake Total 200 / 200 Output Total 250 / 250 Balance -250 / -250 200 / -50 Weight last 48 hrs Weight 88.451 kg Weight 94.801 kg Physical Exam Narrative: Very pleasant cooperative female Sitting at the bedside Patient is stating that she cannot lay flat Her lungs on auscultation sound clear without adventitious rhonchi or crackles or wheezing Distended abdomen, visceral obesity Trace edema of legs Pleasant and cooperative NIH 0 Nonfocal neuro exam EOMI, PERRLA O2 saturation 97% on room air No joint swelling Right arm nicotine patch Data : 10/19/21 04:35 10/19/21 04:35 Micro: Microbiology 10/19/21 05:30 Legionella Urinary Antigen - Final Urine,Clean Catch 10/18/21 19:00 Blood Culture - Preliminary Blood SPECIMEN COLLECTED 10/18/21 18:57 Blood Culture - Preliminary Blood SPECIMEN COLLECTED A&P Assessment and plan (1) Dyspnea on exertion: Status: Acute (2) Cardiomyopathy: Status: Acute (3) CHF NYHA class IV: Status: Acute (4) Left bundle branch block: Status: Acute (5) Pulmonary nodule: Status: Acute Plan Dyspnea on exertion due to underlying cardiomyopathy: 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 Nonischemic cardiomyopathy. Patient has a LifeVest. Last echocardiogram shows an EF 1520%, grade 2 diastolic dysfunction, moderately elevated filling pressures, global LV hypokinesia, mild MR, mild TR. Patient currently euvolemic. Continue with Lasix but change the dose to 40 mg oral daily, dose of spironolactone to 12.5 mg oral daily. Patient continues to remain tachycardic. Target heart rate less than 80. Incr eased dose of metoprolol succinate to 12.5 mg twice daily. Will try to add RHIANNON inhibitor's once blood pressures permeative. Keep magnesium level over 2, potassium over 4 Strict output charting, daily weights, fluid restriction up to 15 cc. Carb consistent cardiac diet. Lovenox for DVT prophylaxis. Discharge planning: Plan to discharge within next 48 hours. Home health given multiple medication changes going forward for management of severe heart failure Attestations Medical Necessity Statement*: Requires further hospitalization for management of NYHA class IV CHF, cardiomyopathy while heart failure medications are adjusted Time Spent in Patient Care: Greater than 35 minutes Coding Level of Care Code Acute Sap Basis Consultant for Doug eD La O Diagnoses Dyspnea on exertion R06.00 Pulmonary nodule R91.1 Left bundle branch block I44.7 Cardiomyopathy I42.9 CHF NYHA class IV I50.9
[2021-10-19] MEDS: nystatin powder 15 gm Btl 1 APPLIC TOPICAL (14:21)
[2021-10-19] MEDS: nicotine 21 mg Patch 1 PATCH TRANSDERMA (18:30)
[2021-10-19] MEDS: ALPRAZolam 0.5 mg Tablet 0.25 MG PO (18:31)
[2021-10-19 18:34] LABS: Glucose Point of Care 143 mg/dL (70-110)
[2021-10-19] MEDS: ipratropium-albuterol 3 mL Neb INHALATION (19:54)
[2021-10-19 20:23] LABS: Glucose Point of Care 184 mg/dL (70-110)
[2021-10-19] MEDS: atorvastatin 40 mg Tablet PO (20:24)
[2021-10-19] MEDS: PARoxetine 20 mg Tablet PO (20:24)
[2021-10-19] MEDS: enoxaparin 40 mg/0.4 mL Syringe SUBCUT (20:25)
[2021-10-20] VITALS (12 sets, daily range): BP systolic 77–113; BP diastolic 52–82; PULSE 71–94; RESP 16–28; TEMP 36.6–37.2; O2SAT 94–99
--- NOTE | 2021-10-20 04:41 | PC.NURSE ---
pt not saving urine. education done with patient on importance of monitoring I's and O's. pt verbalized understanding.
[2021-10-20] MEDS: famotidine 20 mg/2 mL INJ IVP (05:35)
[2021-10-20] MEDS: aspirin 81 mg EC Tablet PO (05:35)
[2021-10-20] MEDS: levothyroxine 75 mcg Tablet PO (05:35)
[2021-10-20] MEDS: acetaminophen 325 mg Tablet 650 MG PO ×2 (06:05→21:48)
[2021-10-20 06:22] LABS: Glucose Point of Care 149 mg/dL (70-110)
[2021-10-20] MEDS: ferrous gluconate 324 mg Tablet PO ×2 (08:18→17:31)
[2021-10-20] MEDS: metoprolol succinate ER (24 HR) 25 mg Tablet PO (08:18)
[2021-10-20] MEDS: insulin lispro 100 unit/1 mL SUBCUT ×3 (08:18→21:49)
[2021-10-20] MEDS: spironolactone 25 mg Tablet 12.5 MG PO (08:18)
[2021-10-20] MEDS: pantoprazole DR 40 mg Tablet PO ×2 (08:18→17:31)
[2021-10-20] MEDS: FUROsemide 40 mg Tablet PO (08:18)
[2021-10-20] MEDS: potassium chloride ER 20 mEq Tablet PO ×2 (08:18→17:31)
[2021-10-20] MEDS: ipratropium-albuterol 3 mL Neb INHALATION (08:44)
[2021-10-20] MEDS: nystatin powder 15 gm Btl 1 APPLIC TOPICAL ×2 (08:57→17:31)
[2021-10-20] MEDS: lisinopril 2.5 mg Tablet PO (09:57)
--- NOTE | 2021-10-20 10:27 | PC.CHAP ---
Pastoral Care Encounter/Spiritual Assessment Type of Contact [] Declined fruit or nut farmworker visit [] Patient/Family/Request visit [] Outpatient visit [] Follow-up visit [] Physician referral [] Code/Alert [x] Routine visit [] Staff referral [] Actively dying [] Patient sleeping [] Family support [] [] Out of room [] Palliative care [] [x] Receiving care in room [] Pre-surgical visit [] Trauma [x] Long length of stay [] ICU visit [] Other: Relational/Emotional Strength [x] Patient feels connected with others/family/visitors/staff [] Distress [] Loneliness/isolation [] Abandonment Spirituality of Patient [x] Person of Micaela [] Attends Protestant of their Micaela [x] Believes in Prayer [] Reads Bible or Church materials [] There are Spiritual issues to be addressed Agricultural Engineering Technician Interventions [x] Prayer [x] Active listening [x] Non-anxious presence [x] Spiritual/emotional support [] Crisis/trauma care [x] Spiritual counseling [] Bereavement support [] Provided bereavement packet [] Provided Bible/devotional materials [] Provided toy/stuffed animal, coloring book to patient or family member [] Provided Communion [] Anointing/[place] [] Salvation [x] Completed spiritual assessment [] Other: Impact on Illness or Injury [] Angry [] Fearful [x] Anxious [] Often cries [] Exhaustion [x] Unable to work [] Unable to attend holiness [] Unable to walk/stand [] Unable to read [] Unable to drive [] Unable to eat/drink [] Unable to sleep [] Unable to be with family [] Patient intubated [] Other: Summary Negative low floods feeling better well get to go home soon Time spent with patient 10 mins
[2021-10-20 10:59] LABS: Glucose Point of Care 220 mg/dL (70-110)
--- NOTE | 2021-10-20 13:53 | P.PN_ITS ---
Subjective Subjective: No acute events overnight. States does not have any new complaints. States feeling better from breathing standpoint but feeling blah from energy levels. Denies any nausea, vomiting, headache. On examination laying comfortably in bed having complete evaluation for 15 minutes. Vitals/I&O/Wt Last Vital Signs Temp 98.5 F 10/20/21 11:59 Pulse 93 10/20/21 11:59 Resp 25 H 10/20/21 11:59 BP 77/60 10/20/21 11:59 Pulse Ox 95 10/20/21 11:59 10/19/21 10/20/21 10/20/21 22:59 06:59 14:59 Intake Total 350 / 350 120 / 470 236 / 236 Output Total 500 / 500 Balance -150 / -150 120 / -30 236 / 236 Weight last 48 hrs Weight 88.451 kg Weight 94.801 kg Physical Exam Narrative: Very pleasant cooperative female Sitting at the bedside Patient is stating that she cannot lay flat Her lungs on auscultation sound clear without adventitious rhonchi or crackles or wheezing Distended abdomen, visceral obesity Trace edema of legs Pleasant and cooperative NIH 0 Nonfocal neuro exam EOMI, PERRLA O2 saturation 97% on room air No joint swelling Right arm nicotine patch Data : 10/19/21 04:35 10/19/21 04:35 Micro: Microbiology 10/18/21 19:00 Blood Culture - Preliminary Blood NEGATIVE TO DATE 10/18/21 18:57 Blood Culture - Preliminary Blood NEGATIVE TO DATE 10/18/21 21:35 MRSA Culture - Final Nose A&P Assessment and plan (1) Dyspnea on exertion: Status: Acute (2) Cardiomyopathy: Status: Acute (3) CHF NYHA class IV: Status: Acute (4) Left bundle branch block: Status: Acute (5) Pulmonary nodule: Status: Acute Plan Dyspnea on exertion due to underlying cardiomyopathy: 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 Acute on chronic Nonischemic cardiomyopathy. Patient has a LifeVest. Last echocardiogram shows an EF 1520%, grade 2 diastolic dysfunction, moderately elevated filling pressures, global LV hypokinesia, mild MR, mild TR. Patient currently euvolemic. Continue with Lasix but change the dose to 40 mg oral daily, dose of spironolactone to 12.5 mg oral daily. Patient continues to remain tachycardic. Target heart rate less than 80. Increase metoprolol succinate 25 mg daily. Will try to add lisinopril 2.5 mg daily. Monitor mean more than 62. Monitor blood pressure closely. Keep magnesium level over 2, potassium over 4 Strict output charting, daily weights, fluid restriction up to 15 cc. Carb consistent cardiac diet. Lovenox for DVT prophylaxis. Discharge planning: Plan to discharge within next 48 hours. Home health given multiple medication changes going forward for management of severe heart failure Attestations Medical Necessity Statement*: Requires further hospitalization for management of NYHA class IV heart failure while heart failure medications were adjusted. Time Spent in Patient Care: Greater than 35 minutes Coding Level of Care Code Acute Education Sales Consultant for Doug De La O Diagnoses Dyspnea on exertion R06.00 Cardiomyopathy I42.9 CHF NYHA class IV I50.9 Left bundle branch block I44.7 Pulmonary nodule R91.1
[2021-10-20 16:50] LABS: Glucose Point of Care 137 mg/dL (70-110)
--- NOTE | 2021-10-20 19:15 | PC.NURSE ---
verbal instructions to give lasix 40mg IVP x1
[2021-10-20] MEDS: FUROsemide 10 mg/mL SDV 4mL 40 MG IVP (19:16)
[2021-10-20] MEDS: PARoxetine 20 mg Tablet PO (21:48)
[2021-10-20] MEDS: atorvastatin 40 mg Tablet PO (21:48)
[2021-10-20] MEDS: enoxaparin 40 mg/0.4 mL Syringe SUBCUT (21:49)
[2021-10-20] MEDS: nicotine 21 mg Patch 1 PATCH TRANSDERMA (21:50)
[2021-10-20 22:14] LABS: Glucose Point of Care 150 mg/dL (70-110)
[2021-10-21] VITALS (12 sets, daily range): BP systolic 100–111; BP diastolic 60–80; PULSE 70–95; RESP 16–25; TEMP 36.3–36.8; O2SAT 93–100
[2021-10-21 05:05] LABS: Basophils # 0.1 10^3/uL (0.0-0.1); Basophils % 0.6 %; Eosinophils # 0.1 10^3/uL (0.0-0.8); Eosinophils % 1.2 %; Hematocrit 36.9 % (37.0-47.0); Hemoglobin 11.4 g/dL (11.5-15.3); Lymphocytes # 3.9 10^3/uL (0.8-4.8); Lymphocytes % 32.7 %; Mean Corpuscular HGB Conc 30.9 g/dL (30.0-36.0); Mean Corpuscular Hemoglobin 30.6 pg (28.0-34.0); Mean Corpuscular Volume 99.2 fl (81-99); Mean Platelet Volume 9.9 fL (7.4-10.4); Monocytes % 8.4 %; Neutrophils # 6.74 10^3/uL (1.8-7.7); Neutrophils % 56.8 %; Nucleated Red Blood Cells % 0 %; Platelet Count 274 10^3/cmm (130-400); Red Blood Count 3.72 10^6/uL (4.1-5.3); Red Cell Distribution Width 13.2 % (12.1-15.1); White Blood Count 11.8 10^3/uL (4.0-10.0)
[2021-10-21 05:27] LABS: Alanine Aminotransferase 21 U/L (0-33); Alkaline Phosphatase 43 IU/L (35-105); Aspartate Amino Transferase 25 U/L (0-32); Blood Urea Nitrogen 22 mg/dL (6-20); Calcium 9.3 mg/dL (8.5-10.5); Carbon Dioxide 23 mmol/L (22-29); Chloride 100 mmol/L (98-107); Globulin 3.8 g/dL (1.3-4.6); Glomerular Filtration Rate 74.2 mL/min (90-130); Glucose 140 mg/dL (65-115); Osmolality Calculated 286 mOsm/kg (285-295); Sodium 135 mmol/L (136-145); Total Bilirubin 0.5 mg/dL (0.15-1.2); Total Protein 7.8 g/dL (6.6-8.7)
[2021-10-21] MEDS: aspirin 81 mg EC Tablet PO (06:26)
[2021-10-21] MEDS: levothyroxine 75 mcg Tablet PO (06:26)
[2021-10-21 07:06] LABS: Glucose Point of Care 145 mg/dL (70-110)
[2021-10-21] MEDS: pantoprazole DR 40 mg Tablet PO ×2 (08:49→17:54)
[2021-10-21] MEDS: potassium chloride ER 20 mEq Tablet PO ×2 (08:49→17:54)
[2021-10-21] MEDS: spironolactone 25 mg Tablet 12.5 MG PO (08:49)
[2021-10-21] MEDS: metoprolol tartrate 25 mg Tablet PO ×2 (08:50→21:56)
[2021-10-21] MEDS: FUROsemide 40 mg Tablet PO ×2 (08:51→17:49)
[2021-10-21] MEDS: ferrous gluconate 324 mg Tablet PO ×2 (09:42→17:49)
[2021-10-21] MEDS: ipratropium-albuterol 3 mL Neb INHALATION ×2 (09:44→20:30)
[2021-10-21] MEDS: losartan 50 mg Tablet 12.5 MG PO (09:46)
[2021-10-21] MEDS: ALPRAZolam 0.5 mg Tablet 0.25 MG PO ×2 (11:18→21:55)
[2021-10-21 11:51] LABS: Glucose Point of Care 224 mg/dL (70-110)
--- NOTE | 2021-10-21 13:11 | P.PN_ITS ---
Subjective Subjective: Patient has remained hemodynamically stable. Yesterday in the evening was complaining of some orthopnea so was given IV Lasix. After IV Lasix patient states she slept like a baby . Today morning again laying down comfortably in bed. Heart rate running between 80s to 90s. Blood pressure well controlled. Vitals/I&O/Wt Last Vital Signs Temp 97.3 F L 10/21/21 11:44 Pulse 72 10/21/21 11:44 Resp 18 10/21/21 11:44 BP 100/71 10/21/21 11:44 Pulse Ox 98 10/21/21 11:44 10/20/21 10/21/21 10/21/21 22:59 06:59 14:59 Intake Total 230 / 466 50 / 516 Output Total 400 / 400 Balance -170 / 66 50 / 116 Physical Exam Narrative: Very pleasant cooperative female Sitting at the bedside Patient is stating that she cannot lay flat Her lungs on auscultation sound clear without adventitious rhonchi or crackles or wheezing Distended abdomen, visceral obesity Trace edema of legs Pleasant and cooperative NIH 0 Nonfocal neuro exam EOMI, PERRLA O2 saturation 97% on room air No joint swelling Right arm nicotine patch Data : 10/21/21 04:38 10/21/21 04:38 A&P Assessment and plan (1) Dyspnea on exertion: Status: Acute (2) Cardiomyopathy: Status: Acute (3) CHF NYHA class IV: Status: Acute (4) Left bundle branch block: Status: Acute (5) Pulmonary nodule: Status: Acute Plan Dyspnea on exertion due to underlying cardiomyopathy: 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 Acute on chronic Nonischemic cardiomyopathy. Patient has a LifeVest. Last echocardiogram shows an EF 1520%, grade 2 diastolic dysfunction, moderately elevated filling pressures, global LV hypokinesia, mild MR, mild TR. Patient currently euvolemic. Increase lasix to 40 mg BID, dose of spironolactone to 12.5 mg oral daily. Patient continues to remain tachycardic. Target heart rate less than 80. Switch to metoprolol succinate to metoprolol tartarate 25 mg BID. Start losartan 12.5 mg QD. Monitor mean more than 62. Monitor blood pressure closely. Keep magnesium level over 2, potassium over 4 Strict output charting, daily weights, fluid restriction up to 1500 cc. Carb consistent cardiac diet. Lovenox for DVT prophylaxis. Plan for day: Switch from metoprolol succinate to tartrate 25 mg twice daily. Start on losartan 12.5 mg once daily. Increase Lasix to 40 mg twice daily. Monitor vitals. Keep saturation over 88%. Plan to walk to monitor heart rate and symptoms. Discharge planning: Plan to discharge within next 24 hours. Home health given multiple medication changes going forward for management of severe heart failure Attestations Medical Necessity Statement*: Requires further hospitalization for management of NYHA class IV heart failure in setting of nonischemic cardiomyopathy while heart failure medications are adjusted, borderline blood pressures Time Spent in Patient Care: Greater than 35 minutes Coding Level of Care Code Acute Splash Line Operator for Doug De La O Diagnoses Dyspnea on exertion R06.00 Cardiomyopathy I42.9 CHF NYHA class IV I50.9 Left bundle branch block I44.7 Pulmonary nodule R91.1
[2021-10-21] MEDS: insulin lispro 100 unit/1 mL SUBCUT ×2 (13:28→21:55)
[2021-10-21] MEDS: TRAMadol 50 mg Tablet PO (15:10)
[2021-10-21 16:43] LABS: Glucose Point of Care 131 mg/dL (70-110)
[2021-10-21 20:49] LABS: Glucose Point of Care 169 mg/dL (70-110)
[2021-10-21] MEDS: nicotine 21 mg Patch 1 PATCH TRANSDERMA (21:55)
[2021-10-21] MEDS: enoxaparin 40 mg/0.4 mL Syringe SUBCUT (21:56)
[2021-10-21] MEDS: atorvastatin 40 mg Tablet PO (21:56)
[2021-10-21] MEDS: PARoxetine 20 mg Tablet PO (21:56)
[2021-10-22] VITALS: BP 105/69; PULSE 70; RESP 18; O2SAT 96
--- NOTE | 2021-10-22 00:36 | PC.NURSE ---
Addendum entered by Maggie Cheek RN 10/22/21 01:10: Dr. Pittman ordered to magnesium and potassium level draws. Original Note: PVCs are becoming more and more frequent throughout the night on cushion former. She is currently in bigeminy. She is currently asymptomatic. Dr. Pittman notified.
[2021-10-22 01:41] LABS: Anion Gap 15.2 (5-19); Blood Urea Nitrogen 20 mg/dL (6-20); Calcium 9.3 mg/dL (8.5-10.5); Carbon Dioxide 25 mmol/L (22-29); Chloride 98 mmol/L (98-107); Glomerular Filtration Rate 74.2 mL/min (90-130); Glucose 143 mg/dL (65-115); Magnesium 1.9 mg/dL (1.7-2.3); Osmolality Calculated 283 mOsm/kg (285-295); Potassium 4.2 mmol/L (3.5-5.1); Sodium 134 mmol/L (136-145)
[2021-10-22 04:00] VITALS: BP 96/64; PULSE 71; O2SAT 96
[2021-10-22 04:19] VITALS: PULSE 79
[2021-10-22] MEDS: aspirin 81 mg EC Tablet PO (05:13)
[2021-10-22] MEDS: levothyroxine 75 mcg Tablet PO (05:13)
[2021-10-22 06:27] LABS: Glucose Point of Care 123 mg/dL (70-110)
[2021-10-22 08:00] VITALS: BP 96/64; PULSE 71; PULSE 74; RESP 17; RESP 25; TEMP 36.8; O2SAT 95; O2SAT 97
[2021-10-22] MEDS: ferrous gluconate 324 mg Tablet PO (08:30)
[2021-10-22] MEDS: FUROsemide 40 mg Tablet PO (08:30)
[2021-10-22] MEDS: spironolactone 25 mg Tablet 12.5 MG PO (08:30)
[2021-10-22] MEDS: potassium chloride ER 20 mEq Tablet PO (08:30)
[2021-10-22] MEDS: losartan 50 mg Tablet 12.5 MG PO (08:30)
[2021-10-22] MEDS: ALPRAZolam 0.5 mg Tablet 0.25 MG PO (08:30)
[2021-10-22] MEDS: pantoprazole DR 40 mg Tablet PO (08:31)
[2021-10-22] MEDS: nystatin powder 15 gm Btl 1 APPLIC TOPICAL (08:31)
[2021-10-22] MEDS: metoprolol tartrate 25 mg Tablet PO (08:34)
[2021-10-22 11:00] VITALS: BP 97/61; PULSE 66; RESP 16; TEMP 36.8; O2SAT 98
[2021-10-22 11:05] LABS: Glucose Point of Care 190 mg/dL (70-110)
[2021-10-22] MEDS: insulin lispro 100 unit/1 mL SUBCUT (11:38)
--- NOTE | 2021-10-22 12:53 | P.DS_ITS ---
Discharge Providers Date of Admission: 10/19/21 13:09 Date of Discharge: October 22, 2021 Attending Provider at Admission: Salvador Chung MD Attending Provider at Discharge: Salvador Chung MD Primary Care Provider: Sascha Carcamo Diagnoses at Discharge Discharge Diagnosis (1) Dyspnea on exertion: Status: Acute (2) Cardiomyopathy: Status: Acute Permanent problem details: Nonischemic, nonobstructive CAD?CAG 2021 (3) CHF NYHA class IV: Status: Acute (4) Left bundle branch block: Status: Acute (5) Pulmonary nodule: Status: Acute Reason for Visit Reason for Visit: Low Ejection Hospital Course Hospital Course Treasure Waldron is a 56 year old female who has established history of reduced ejection fraction heart failure, recent coronary angiography revealed nonobstructive coronary to disease, patient is following up with Dr. Yancey, she does have LifeVest which he wears every day, went for her cardiac rehab appointment today, became extremely short of breath when she entered the facility, became hypoxic, she was referred to the nearby ER and sent to the [facility] as her sales engineer is Dr. Yancey. After the patient started having symptoms 3 days prior to come to the hospital. She started complaining of difficulty in breathing more so when she would walk and currently having exhaustion and difficulty in breathing along with palpitations on taking 5-6 steps. As per the patient he has had multiple medication changes over the last couple of weeks. He states that sales engineer had increased her Bumex to twice daily and spironolactone to 2 tablets and 1 tablet every other day. After that she started having low blood pressures so her primary care provider decreased spironolactone to 1 tablet daily and stopped her metoprolol. She states since stopping the recent medications as per her primary care provider her symptoms have gotten worse. Patient admitted to the cardiac stepdown unit for further evaluation and management of NYHA class IV heart failure. On admission patient was found to be tachycardic with heart rate coming running in 120s though maintaining her saturation at room air. Gradually her heart failure medications were adjusted. Patient did not have any active signs of infection. Her medications are being changed very gradually and currently she is tolerating the medications as below. She is to take metoprolol tartrate 25 mg twice daily. Losartan 12.5 mg once daily. Spironolactone 12.5 mg once daily. Lasix 40 mg in morning and 80 mg in the evening. Patient is to check her blood pressure daily and maintain a blood pressure diary and follow-up with her primary care provider and sales engineer within next 1 week. She is to check her body weight daily. Her ideal body body weight is her weight today. She has been asked to increase her dose of Lasix to 80 mg twice daily if her body weight increases by 5 pounds of the weight today. She is to restrict her fluid intake up to 1500 cc a day. She is to take less than 2 g of salt daily. Patient is to keep her head of the bed elevated up to 45 degrees. She would benefit from a hospital bed. She is still She walks slowly. Go from laying down to standing up position slowly. She would benefit from a walker to maintain her steps steady and to rest while walking. Physical Exam Narrative: Very pleasant cooperative female Sitting at the bedside Patient is stating that she cannot lay flat Her lungs on auscultation sound clear without adventitious rhonchi or crackles or wheezing Distended abdomen, visceral obesity Trace edema of legs Pleasant and cooperative NIH 0 Nonfocal neuro exam EOMI, PERRLA O2 saturation 97% on room air No joint swelling Right arm nicotine patch Discharge Data Studies Completed and Pending Completed Studies During Hospitalization Category Date Time Status CTA PE [CT angio chest PE protcl [id number]] Urgent Cat Scan 10/18/21 20:34 [place] [id number] Routine Ultrasound 10/18/21 20:34 Completed Pending at discharge Category Date Time Status Bacterial Antigen Stat Lab 10/18/21 18:16 Ordered Blood Culture Stat Lab 10/18/21 19:00 Results Radiology Impressions Chest CTA 10/18/21 20:34 IMPRESSION: 1. No pulmonary embolism. 2. No aortic dissection. 3. Mild cardiomegaly. Laboratory Results WBC 11.8 10^3/uL (4.0-10.0) H 10/21/21 04:38 RBC 3.72 10^6/uL (4.1-5.3) L 10/21/21 04:38 Hgb 11.4 g/dL (11.5-15.3) L 10/21/21 04:38 Hct 36.9 % (37.0-47.0) L 10/21/21 04:38 MCV 99.2 fl (81-99) H 10/21/21 04:38 MCH 30.6 pg (28.0-34.0) 10/21/21 04:38 MCHC 30.9 g/dL (30.0-36.0) 10/21/21 04:38 RDW 13.2 % (12.1-15.1) 10/21/21 04:38 Plt Count 274 10^3/cmm (130-400) 10/21/21 04:38 MPV 9.9 fL (7.4-10.4) 10/21/21 04:38 Neut % (Auto) 56.8 % 10/21/21 04:38 Lymph % (Auto) 32.7 % 10/21/21 04:38 Rains % (Auto) 8.4 % 10/21/21 04:38 Eos % (Auto) 1.2 % 10/21/21 04:38 Baso % (Auto) 0.6 % 10/21/21 04:38 Neut # (Auto) 6.74 10^3/uL (1.8-7.7) 10/21/21 04:38 Lymph # (Auto) 3.9 10^3/uL (0.8-4.8) 10/21/21 04:38 Rains # (Auto) 1.0 10^3/uL (0.2-0.9) H 10/21/21 04:38 Eos # (Auto) 0.1 10^3/uL (0.0-0.8) 10/21/21 04:38 Baso # (Auto) 0.1 10^3/uL (0.0-0.1) 10/21/21 04:38 Nucleated RBC % (auto) 0 % 10/21/21 04:38 Nucleated RBCs # 0.0 /100WBC 10/21/21 04:38 D-Dimer 2.84 ug/mIFEU (0-0.59) H 10/18/21 18:57 Sodium 134 mmol/L (136-145) L 10/22/21 01:10 Potassium 4.2 mmol/L (3.5-5.1) 10/22/21 01:10 Chloride 98 mmol/L (98-107) 10/22/21 01:10 Carbon Dioxide 25 mmol/L (22-29) 10/22/21 01:10 Anion Gap 15.2 (5-19) 10/22/21 01:10 BUN 20 mg/dL (6-20) 10/22/21 01:10 Creatinine 0.8 mg/dL (0.5-0.9) 10/22/21 01:10 GFR Calculation 74.2 mL/min (90-130) L 10/22/21 01:10 Glucose 143 mg/dL (65-115) H 10/22/21 01:10 POC Glucose 190 mg/dL (70-110) H 10/22/21 11:01 Calculated Osmolality 283 mOsm/kg (285-295) L 10/22/21 01:10 Calcium 9.3 mg/dL (8.5-10.5) 10/22/21 01:10 Magnesium 1.9 mg/dL (1.7-2.3) 10/22/21 01:10 Iron 59 ug/dL (37-145) 10/18/21 18:57 TIBC 403 mcg/dl 10/18/21 18:57 % Saturation 14.6 % (20-50) L 10/18/21 18:57 Unsat Iron Binding 344 ug/dL (112-347) 10/18/21 18:57 Total Bilirubin 0.5 mg/dL (0.15-1.2) 10/21/21 04:38 AST 25 U/L (0-32) 10/21/21 04:38 ALT 21 U/L (0-33) 10/21/21 04:38 Alkaline Phosphatase 43 IU/L (35-105) 10/21/21 04:38 NT-Pro-B Natriuret Pep Cancelled 10/22/21 01:10 Total Protein 7.8 g/dL (6.6-8.7) 10/21/21 04:38 Albumin 4.0 g/dL (3.5-5.2) 10/21/21 04:38 Globulin 3.8 g/dL (1.3-4.6) 10/21/21 04:38 Triglycerides 87 mg/dL (0-150) 10/19/21 04:35 Triglycerides Cancelled 10/19/21 04:35 Cholesterol 139 mg/dL (0-200) 10/19/21 04:35 Cholesterol Cancelled 10/19/21 04:35 LDL Cholesterol, Calc 64 mg/dL (50-129) 10/19/21 04:35 LDL Cholesterol, Calc Cancelled 10/19/21 04:35 Total VLDL Cholesterol 17 mg/dL (0-30) 10/19/21 04:35 Total VLDL Cholesterol Cancelled 10/19/21 04:35 HDL Cholesterol 58 mg/dL (60-100) L 10/19/21 04:35 HDL Cholesterol Cancelled 10/19/21 04:35 Cholesterol/HDL Ratio 2.40 mg/dL (0.0-4.40) 10/19/21 04:35 Cholesterol/HDL Ratio Cancelled 10/19/21 04:35 Procalcitonin 0.03 ng/mL (0-0.5) 10/18/21 18:57 Urine Color Straw (Yellow) 10/19/21 05:30 Urine Appearance Clear (CLEAR) 10/19/21 05:30 Urine pH 5 (5-7) 10/19/21 05:30 Ur Specific [place] 1.020 (1.005-1.030) 10/19/21 05:30 Urine Protein Neg (Negative) 10/19/21 05:30 Urine Glucose (UA) Norm (Normal) 10/19/21 05:30 Urine Ketones Negative (Negative) 10/19/21 05:30 Urine Blood Neg (Negative) 10/19/21 05:30 Urine Nitrate Negative (Negative) 10/19/21 05:30 Urine Bilirubin Neg (Negative) 10/19/21 05:30 Urine Urobilinogen Norm mg/dL (Negative) 10/19/21 05:30 Ur Leukocyte Esterase Negative (Negative) 10/19/21 05:30 Coronavirus 229E (PCR) Not detected (NOT DETECT) 10/18/21 21:35 SARS-CoV-2 (PCR) Not detected (NOT DETECT) 10/18/21 21:35 Vitals Last Vital Signs Temp 98.3 F 10/22/21 11:00 Pulse 66 10/22/21 11:00 Resp 16 10/22/21 11:00 BP 97/61 10/22/21 11:00 Pulse Ox 98 10/22/21 11:00 Discharge Plan Discharge Patient Disposition: Home Condition: Stable Prescriptions: New furosemide 40 mg Tablet 80 mg PO QPM Qty: 30 0RF spironolactone 25 mg Tablet 12.5 mg PO DAILY Qty: 30 0RF metoprolol tartrate 25 mg Tablet 25 mg PO BID@0900,2100 Qty: 60 0RF ferrous gluconate 324 mg (37.5 mg iron) Tablet 324 mg PO BIDWM Qty: 60 0RF Cozaar 25 mg tablet 12.5 mg PO DAILY Qty: 30 0RF Continued pantoprazole 40 mg tablet,delayed release (DR/EC) 40 mg PO BID 0RF loratadine 10 mg tablet 10 mg PO BEDTIME 0RF levothyroxine 75 mcg tablet 75 mcg PO QAM 0RF aspirin [Adult Low Dose Aspirin] 81 mg tablet,delayed release (DR/EC) 81 mg PO QAM 0RF albuterol sulfate 90 mcg/actuation HFA aerosol inhaler 2 puff inhalation Q6H PRN (Reason: Shortness Of Breath) 0RF infliximab [Remicade] 100 mg recon soln See Rx Instructions .ROUTE .COMPLEX 0RF Rx Instructions: EVERY 6 WEEKS @ [facility] cholecalciferol (vitamin D3) 25 mcg (1,000 unit) capsule 25 mcg PO QAM 0RF omega-3 fatty acids 500 mg capsule 500 mg PO BEDTIME 0RF tramadol 50 mg tablet 50 mg PO Q8H PRN (Reason: Pain) 0RF magnesium oxide 400 mg magnesium capsule 400 mg PO BID Qty: 60 6RF rosuvastatin 10 mg tablet 10 mg PO BEDTIME 0RF cyclobenzaprine 10 mg tablet 10 mg PO BID PRN (Reason: Spasms) 0RF multivitamin Tablet 1 tab PO DAILY 0RF acetaminophen [Tylenol Extra Strength] 500 mg tablet 500 mg PO Q4H PRN (Reason: Pain) Qty: 0 0RF nystatin 100,000 unit/gram powder 1 applic topical TID Qty: 60 0RF dextromethorphan polistirex [Robitussin ER] 30 mg/5 mL suspension,extended rel 12 hr 10 ml PO Q12H PRN (Reason: cough) Qty: 89 0RF metformin 500 mg tablet 1,000 mg PO BID Qty: 0 0RF Rx Instructions: Start Metformin 09/21/2021 evening potassium chloride 20 mEq tablet extended release 20 meq PO BID Qty: 180 1RF Changed paroxetine HCl 20 mg tablet 40 mg PO BEDTIME Qty: 0 0RF furosemide 40 mg tablet 40 mg PO QAM Qty: 360 1RF Label Comments: no longer taking Discontinued ascorbic acid (vitamin C) 1,000 mg tablet 1,000 mg PO BID 0RF bumetanide 0.5 mg tablet 0.5 mg PO BID Qty: 270 3RF Rx Instructions: 0.5 mg BID with spironolactone 25 BID and 1 mg BID with spironolactone 25 mg daily on alternate days azithromycin 250 mg Tablet 500 mg PO DAILY Qty: 3 0RF Label Comments: no longer taking spironolactone 50 mg tablet 25 mg PO DAILY Qty: 90 3RF metoprolol succinate 25 mg tablet extended release 24 hr 25 mg PO DAILY Qty: 90 3RF Discharge Orders: Discharge Order (Routine); Ordered 10/22/21 Ordered By: Salvador Chung Other Ambulatory Orders: DME: [facility] (Order) Location: None Selected Ordered By: Salvador Chung Referrals: Sascha Carcamo [Primary Care Provider] - 7-10 days Nora Yancey MD [Physician] - 4-7 days Discharge Diet: Cardiac and Diabetic Discharge Activity: Resume usual activity and Increase activity as tolerated Patient Instructions: Opioid Safety Activity Restrictions/Additional Instructions: Take metoprolol tartrate 25 mg twice daily. Losartan 12.5 mg once daily. Spironolactone 12.5 mg once daily. Lasix 40 mg in morning and 80 mg in the evening. Patient is to check her blood pressure daily and maintain a blood pressure diary and follow-up with her primary care provider and sales engineer within next 1 week. She is to check her body weight daily. Her ideal body body weight is her weight today. She has been asked to increase her dose of Lasix to 80 mg twice daily if her body weight increases by 5 pounds of the weight today. She is to restrict her fluid intake up to 1500 cc a day. She is to take less than 2 g of salt daily. Keep head of the bed elevated up to 45 degrees. Discharge Attestations Time Spent in Discharge Care*: greater than 30 min Specific Discharge Activities: educating patient, educating and/or supporting family/caregiver, discussing with shoe caser/social workers/dc planners, documenting/other paperwork and evaluating patient/reviewing data Time Spent in Smoking Cessation: more than 10 minutes Status at Discharge: Cognitive status at discharge: cognitively intact , Behavioral status at discharge: cooperative , Functional status at discharge: uses cane/walker , Overall status at discharge: patient has a new baseline Quality Metrics Clinical Quality Measures [ No reported AMI, CVA or VTE this stay] Coding Level of Care Code Acute Chg FW DC note Diagnoses Dyspnea on exertion R06.00 Cardiomyopathy I42.9 CHF NYHA class IV I50.9 Left bundle branch block I44.7 Pulmonary nodule R91.1
--- NOTE | 2021-10-22 14:28 | PC.NURSE ---
dc'd pt piv. rx sent to [facility] per pts request. discharge instructions reviewed with patient. discussed in detail the medication changes, highlighted on paperwork, pt verbalized understanding. Has no further questions at this time. pt left with all wheel walker that was delivered to her room. Order for home hospital bed sent. pt left via wc to private vehicle with her significant other.
== END 2021-10-22 14:00 | disposition home or self-care (01) | DRG 291 ==
PROVIDERS: Internal Medicine; Admitting Provider Student in an Organized Health Care Education/Training Program; PCP Family Medicine; Visit Provider Student in an Organized Health Care Education/Training Program
DX: I11.0 Hypertensive heart disease with heart failure (principal); I50.43 Acute on chronic combined systolic (congestive) and diastolic (congestive) heart failure; K50.90 Crohn's disease, unspecified, without complications; I25.10 Atherosclerotic heart disease of native coronary artery without angina pectoris; Z87.891 Personal history of nicotine dependence; G89.29 Other chronic pain; M54.9 Dorsalgia, unspecified; I42.8 Other cardiomyopathies; J44.9 Chronic obstructive pulmonary disease, unspecified; E11.9 Type 2 diabetes mellitus without complications; K21.9 Gastro-esophageal reflux disease without esophagitis; E78.5 Hyperlipidemia, unspecified; E03.9 Hypothyroidism, unspecified; E66.01 Morbid (severe) obesity due to excess calories; Z68.39 Body mass index [BMI] 39.0-39.9, adult; G47.33 Obstructive sleep apnea (adult) (pediatric); Z96.82 Presence of neurostimulator; Z79.84 Long term (current) use of oral hypoglycemic drugs; Z79.891 Long term (current) use of opiate analgesic; Z79.51 Long term (current) use of inhaled steroids; Z79.82 Long term (current) use of aspirin; R91.8 Other nonspecific abnormal finding of lung field; I44.7 Left bundle-branch block, unspecified
CPT/HCPCS: 36415; 36416; 71275; 80048; 80053; 80061; 81003; 82962; 83540; 83550; 83735; 83880; 84145; 85025; 85378; 87040; 87449; 87635; 87641; 93005; 93970; 94640; 94660; 96372; 97161; G0378; G0379; J1650; J1815; J1940; J3490; Q9967

== ENCOUNTER 2022-02-03 12:46 | Outpatient (CLI) | payer OTHER, SELFPAY ==
--- NOTE | 2022-02-03 12:45 | USCV_ITS ---
Chivo Treasure Age: 56 Gender: F : 1965 Exam Date: 02/03/2022 13:22 Ordering Phys: Nora Yancey MD ([email or web address]) Technologist: Brianne Roberts Exam Location: [facility] [place] Indication: Assess LV function BP: 113 / 72 HR: 59 Rhythm: Sinus Technical Quality: Adequate MEASUREMENTS (Male / Female) Normal Values 2D ECHO LV Diastolic Diameter PLAX 6.0 cm 4.2 - 5.9 / 3.9 - 5.3 cm LV Systolic Diameter PLAX 5.5 cm IVS Diastolic Thickness 1.5 cm 0.6 - 1.0 / 0.6 - 0.9 cm IVS Systolic Thickness 1.3 cm LVPW Diastolic Thickness 1.3 cm 0.6 - 1.0 / 0.6 - 0.9 cm LVPW Systolic Thickness 1.7 cm LVOT Diameter 2.0 cm LV Ejection Fraction 2D Teich 18.2 % LV Ejection Fraction MOD 2C 42.1 % LV Ejection Fraction 2C AL 42.6 % LA Diameter 4.2 cm LA Width 3.3 cm LA Height 5.8 cm RA Width 3.1 cm RA Height 4.7 cm Aorta at Sinotubular Diameter 2.8 cm IVC Diameter 1.6 cm DOPPLER TR Peak Velocity 256.0 cm/s TR Peak Gradient 26.2 mmHg Right Atrial Pressure 3.0 mmHg Pulmonary Artery Systolic Pressu 29.2 mmHg FINDINGS Left Ventricle Mildly increased left ventricular cavity size. Severely decreased left ventricular systolic function. Left ventricular ejection fraction is estimated at 20-25 %. Severe global hypokinesis. Abnormal septal motion consistent with conduction abnormality. Right Ventricle Normal right ventricular size and systolic function, RVSP 29.2 mmHg. Right Atrium Normal right atrial size. Left Atrium Mildly increased left atrial size. Mitral Valve Structurally normal mitral valve. Mild mitral valve regurgitation. Aortic Valve Aortic valve not well visualized. Tricuspid Valve Structurally normal tricuspid valve. No tricuspid valve stenosis. Trace tricuspid valve regurgitation. Pulmonic Valve Pulmonic valve not well visualized. Pericardium No pericardial effusion. Aorta Aorta not well visualized. IVC Normal IVC dimension with >50% respiratory change of the inferior vena cava. CONCLUSIONS 1. Mildly increased left ventricular cavity size. Severely decreased left ventricular systolic function. Left ventricular ejection fraction is estimated at 20-25 %. Severe global hypokinesis. Abnormal septal motion consistent with conduction abnormality. 2. Mildly increased left atrial size. 3. When compared to previous study dated 09/16/2021, there may have been very slight improvement in left ventricular systolic function. Nora Yancey MD (Electronically Signed) Final Date: 06 February 2022 12:24 S
== END 2022-02-03 12:47 | disposition home or self-care (01) ==
PROVIDERS: PCP Family Medicine; Visit Provider Internal Medicine Cardiovascular Disease
DX: R06.00 Dyspnea, unspecified (principal); I42.9 Cardiomyopathy, unspecified; I50.20 Unspecified systolic (congestive) heart failure
CPT/HCPCS: 93308

== ENCOUNTER 2022-03-14 05:34 | Day surgery (SDC) | payer OTHER, SELFPAY ==
[2022-03-10 10:19] VITALS: BMI 41.3
[2022-03-10 10:44] LABS: Basophils % 0.5 %; Eosinophils # 0.1 10^3/uL (0.0-0.8); Eosinophils % 1.6 %; Hematocrit 42.3 % (37.0-47.0); Hemoglobin 13.7 g/dL (11.5-15.3); Lymphocytes # 2.4 10^3/uL (0.8-4.8); Lymphocytes % 32.9 %; Mean Corpuscular HGB Conc 32.4 g/dL (30.0-36.0); Mean Corpuscular Hemoglobin 30.5 pg (28.0-34.0); Mean Corpuscular Volume 94.2 fl (81-99); Mean Platelet Volume 9.4 fL (7.4-10.4); Monocytes # 0.9 10^3/uL (0.2-0.9); Monocytes % 12.6 %; Neutrophils # 3.78 10^3/uL (1.8-7.7); Nucleated Red Blood Cells % 0 %; Platelet Count 258 10^3/cmm (130-400); Red Blood Count 4.49 10^6/uL (4.1-5.3); Red Cell Distribution Width 14.5 % (12.1-15.1); White Blood Count 7.3 10^3/uL (4.0-10.0)
[2022-03-10 10:53] LABS: Add Urine Microscopic? NO; Charge for UA Resulting for Rev
[2022-03-10 11:01] LABS: Bilirubin Urine Neg (Negative); Blood Urine Neg (Negative); Glucose Urine UA Norm (Normal); Ketones Urine Negative (Negative); Leukocyte Esterase Urine Negative (Negative); Nitrate Urine Negative (Negative); Protein Urine Neg (Negative); Specific Gravity, Urine 1.005 (1.005-1.030); Urine Appearance Clear (CLEAR); Urine Color Yellow (Yellow); Urobilinogen Urine Norm (Negative); pH Urine 5 (5-7)
--- NOTE | 2022-03-10 11:11 | P.ANESASSM_ITS ---
Pre-Anesthetic Assessment Height/Weight: Height 1.5 m Weight 92.986 kg Preop Diagnosis: Congestive heart failure with cardiomyopathy Operation Date: 03/14/22 07:00 Proposed Procedures p Defibrillator Placement 85486/I42.9(Not Applicable) - Timi Bynum MD Familial anesthetic complications: None Social Tobacco and No alcohol Exam alert, oriented x 3, clear to auscultation bilaterally and regular rate & rhythm Airway Mallampati: Class I Dentition: other (missing teeth) Pulmonary Chronic Obstructive Pulmonary Disease and Exertional Dyspnea hx pneumonia CV/HEM Congestive Heart Failure LBBB, EF 15% with life vest Metabolic Diabetes Mellitus, Hyperlipidemia and Morbid Obesity Anesthetic Plan ASA status: 4 Risk of > 500 ml blood loss (7ml/kg in children): No Medications/Allergies Home Medications Medication Instructions Recorded Confirmed Last Taken Type aspirin 81 mg tablet,delayed 81 mg PO QAM 08/09/20 03/10/22 03/09/22 History release (Adult Low Dose Aspirin) levothyroxine 75 mcg tablet 75 mcg PO QAM 08/09/20 03/10/22 10/18/21 History loratadine 10 mg tablet 10 mg PO BEDTIME 08/09/20 03/10/22 10/17/21 History pantoprazole 40 mg tablet,delayed 40 mg PO BID 08/09/20 03/10/22 10/18/21 Hist ory release albuterol sulfate 90 mcg/actuation 2 puff inhalation Q6H PRN 04/05/21 03/10/22 U nknown History aerosol inhaler Shortness Of Breath infliximab 100 mg intravenous See Rx Instructions .Route .COMPLEX 04/05/21 03/10/22 02/27/22 History solution (Remicade) cholecalciferol (vitamin D3) 25 25 mcg PO QAM 09/08/21 03/10/22 10/18/21 History mcg (1,000 unit) capsule magnesium oxide 400 mg PO BID #60 caps 09/13/21 03/10/22 10/18/21 Rx multivitamin 1 tab PO DAILY 09/15/21 03/10/22 10/18/21 History rosuvastatin 10 mg tablet 10 mg PO BEDTIME 09/15/21 03/10/22 10/17/21 History acetaminophen 500 mg tablet 500 mg PO Q4H PRN Pain #0 tabs 09/20/21 03/10/22 Unknown Rx (Tylenol Extra Strength) metformin 500 mg tablet 1,000 mg PO BID #0 tabs 09/20/21 03/10/22 10/18/21 Rx potassium chloride 20 mEq 20 meq PO BID #180 tabs 09/20/21 03/10/22 10/18/21 Rx tablet,extended release paroxetine HCl 20 mg tablet 40 mg PO BEDTIME #0 tabs 10/22/21 03/10/22 10/17/21 Rx alprazolam 0.25 mg tablet 0.25 mg PO BID PRN Anxiety 11/01/21 03/10/22 Unknown History ferrous gluconate 324 mg (37.5 mg 324 mg PO DAILY #30 tabs 12/14/21 03/10/22 Unknown Rx iron) tablet furosemide 40 mg tablet 80 mg PO BID 12/14/21 03/10/22 Unknown History losartan 25 mg tablet (Cozaar) 12.5 mg PO DAILY #45 tabs 12/14/21 03/10/22 Unknown Rx metoprolol succinate 25 mg 25 mg PO BID #60 tabs 12/14/21 03/10/22 Unknown Rx tablet,extended release 24 hr spironolactone 25 mg tablet 12.5 mg PO DAILY #45 tabs 12/14/21 03/10/22 Unknown Rx ketoconazole 2 % topical cream 1 applic topical BID #30 grams 02/14/22 03/10/22 Unknown Rx Allergies Allergy/AdvReac Type Severity Reaction Status Date / Time levofloxacin Allergy Unknown Unknown Verified 03/10/22 10:12 sacubitril [From Entresto] Allergy ADR-Itching Verified 03/10/22 10:12 valsartan [From Entresto] Allergy ADR-Itching Verified 03/10/22 10:12 [facility] Anesthesia Medical History Cardiomyopathy Nonischemic, nonobstructive CAD?CAG 2021 Carpal tunnel syndrome CHF NYHA class IV Chronic back pain COPD (chronic obstructive pulmonary disease) Crohn disease Diabetes type 2, controlled Essential hypertension GERD (gastroesophageal reflux disease) Hyperlipidemia Hypothyroid Left bundle branch block Morbid obesity AURELIO on CPAP Presence of neurostimulator Pulmonary nodule Systolic heart failure Surgical History History of carpal tunnel surgery Previous section Family History Other CAD (coronary artery disease) Hypertension Social History Smoking and tobacco status: current every day smoker cigarettes Packs smoked per day: 1 Years cigarettes smoked: 42 Alcohol intake: former Marital status: Single Number of children: 1 Pets and animals: Yes Pets & animals: dog(s) Female Reproductive History Date of last menstrual period: 07/12/11 Data Anesthesia : 03/10/22 10:36 03/10/22 10:36 Short CBC 03/10/22 Range/Units 10:36 WBC 7.3 (4.0-10.0) 10^3/uL Hgb 13.7 (11.5-15.3) g/dL Hct 42.3 (37.0-47.0) % MCV 94.2 (81-99) fl Plt Count 258 (130-400) 10^3/cmm Neut % (Auto) 52.0 % Neut # (Auto) 3.78 (1.8-7.7) 10^3/uL Urine 03/10/22 Range/Units 10:42 Urine Color Yellow (Yellow) Urine Appearance Clear (CLEAR) Urine pH 5 (5-7) Ur Specific [place] 1.005 (1.005-1.030) Urine Protein Neg (Negative) Urine Glucose (UA) Norm (Normal) Urine Ketones Negative (Negative) Urine Nitrate Negative (Negative) Urine Bilirubin Neg (Negative) Ur Leukocyte Esterase Negative (Negative) Cardiac Studies: Echocardiogram 09/16/21 Echocardiogram Limited Views 02/03/22 Echocardiogram Ultrasound 08/30/20
--- NOTE | 2022-03-10 11:19 | ECG_ITS ---
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 Measurements Intervals [place] Rate: 60 P: 63 [place]: 188 QRS: -14 QRSD: 171 T: 36 QT: 475 QTc: 478 Interpretive Statements SINUS RHYTHM LEFT BUNDLE BRANCH BLOCK [120+ ms QRS DURATION, 80+ ms Q/S IN V1/V2, 85+ ms R IN I/aVL/V5/V6] Compared to ECG 10/18/2021 22:15:58 No significant changes Electronically Signed On 03-11-2022 11:19:47 CDT by Nora Yancey M.D. [email or web address] medical [email or web address]/[id number]
--- NOTE | 2022-03-10 11:34 | SUR.PREOP ---
1115 pt states that she is suppose to have defib/pacemaker and call placed to dr Bynum's nurse Cheryl and she stated that sx is only for defibrillator not with pacemaker,informed pt and she still doesn't want to sign consent until talking to dr booker and dr bynum
[2022-03-10 12:12] LABS: Anion Gap 15.4 (5-19); Blood Urea Nitrogen 15 mg/dL (6-20); Calcium 9.8 mg/dL (8.5-10.5); Carbon Dioxide 24 mmol/L (22-29); Chloride 102 mmol/L (98-107); Glomerular Filtration Rate 86.6 mL/min (90-130); Glucose 101 mg/dL (65-115); Osmolality Calculated 285 mOsm/kg (285-295); Potassium 4.4 mmol/L (3.5-5.1); Sodium 137 mmol/L (136-145)
[2022-03-14 06:09] VITALS: BP 110/79; PULSE 69; RESP 18; TEMP 36.7; O2SAT 96
--- NOTE | 2022-03-14 06:15 | W.PM.OPSUD ---
Surgery/Procedure H&P Update DATE OF PROCEDURE: March 14, 2022 DATE H&P PERFORMED: 02/14/22 H&P UPDATE INFORMATION: I have reviewed H&P completed within last 30 days, I have examined patient prior to procedure and No changes to prior documentation CHANGES TO PREVIOUS DOCUMENTATION: According to patient, Dr. Yancey has recommended DIRECTOR OF CLINICAL APPLICATIONS lead implantation later but recommends proceeding now with AICD implantation. PREOP DIAGNOSIS: Congestive heart failure with cardiomyopathy PRIMARY INDICATION FOR PROCEDURE: Medically refractory cardiomyopathy with CHF PLANNED PROCEDURE: Operation Date: 03/14/22 07:00 Proposed Procedures p Defibrillator Placement 15624/I42.9(Not Applicable) - Timi Bynum MD
[2022-03-14 06:28] LABS: Glucose Point of Care 108 mg/dL (70-110)
[2022-03-14] MEDS: sodium chloride 0.9% 1,000 ML 30 ML IV (06:32)
--- NOTE | 2022-03-14 06:41 | P.ANESUD_ITS ---
Pre-Anesthetic Update Pre-Anesthetic Assessment: Date of Surgery/Procedure: 03/14/22 Preop Arelis gnosis: Congestive heart failure with cardiomyopathy Proposed Procedure: Operation Date: 03/14/22 07:00 Proposed Procedures p Defibrillator Placement 17692/I42.9(Not Applicable) - Timi Bynum MD Any changes to Pre-Anesthetic Assessment?: No Last Intake: Intake Last Liquid Date 03/13/22 Last Liquid Time 20:00 Last Solid Date 03/13/22 Last Solid Time 12:00 Vitals: Temperature 98.0 F 03/14/22 06:09 Temperature Source Temporal Artery S can 03/14/22 06:09 Pulse Rate 69 03/14/22 06:09 Respiratory Rate 18 03/14/22 06:09 Blood Pressure 110/79 03/14/22 06:09 Blood Pressure Meeta n 89 03/14/22 06:09 Pulse Oximetry 96 03/14/22 06:09 Oxygen Delivery Me thod 03/14/22 06:13 Exam: Pre-Anes Outpt Exam: alert, oriented x 3 and regular rate & rhythm Additional Exam Findings (including area of procedure): lightly coarse breath sounds b/l Cardiac Studies: Echocardiogram 09/16/21 Echocardiogram Limited Views 02/03/22 Echocardiogram Ultrasound 08/30/20
== END 2022-03-14 07:34 | disposition home or self-care (01) ==
LOC: OR 05:35
PROVIDERS: PCP Family Medicine; Visit Provider Thoracic Surgery (Cardiothoracic Vascular Surgery)
PROC: 0JH608Z Insertion of Defibrillator Generator into Chest Subcutaneous Tissue and Fascia, Open Approach (ICD-10-PCS; CPT 33249; principal; 2022-03-14 07:00)
DX: I42.9 Cardiomyopathy, unspecified (principal); Z53.8 Procedure and treatment not carried out for other reasons; J44.9 Chronic obstructive pulmonary disease, unspecified; E11.9 Type 2 diabetes mellitus without complications; E78.5 Hyperlipidemia, unspecified; E66.01 Morbid (severe) obesity due to excess calories; Z68.41 Body mass index [BMI] 40.0-44.9, adult; Z79.82 Long term (current) use of aspirin; Z79.84 Long term (current) use of oral hypoglycemic drugs; I11.0 Hypertensive heart disease with heart failure; I50.9 Heart failure, unspecified; E03.9 Hypothyroidism, unspecified; G47.33 Obstructive sleep apnea (adult) (pediatric)
CPT/HCPCS: 36415; 36416; 80048; 81003; 82962; 85025; 93005; J2370; J2704; J3010; J7030

== ENCOUNTER → 2022-08-29 17:09 | Outpatient (BNVA) | payer OTHER, SELFPAY | PROVIDERS: PCP Family Medicine; Visit Provider Nurse Practitioner Family | DX: I50.20 Unspecified systolic (congestive) heart failure (principal); I42.9 Cardiomyopathy, unspecified; R06.00 Dyspnea, unspecified; Z95.810 Presence of automatic (implantable) cardiac defibrillator | CPT/HCPCS: 36415; 80048; 83880 ==

== ENCOUNTER → 2022-11-03 08:51 | Outpatient (BNVA) | payer OTHER, SELFPAY | PROVIDERS: PCP Family Medicine; Visit Provider Nurse Practitioner Family | DX: Z95.810 Presence of automatic (implantable) cardiac defibrillator (principal); I50.20 Unspecified systolic (congestive) heart failure; I42.9 Cardiomyopathy, unspecified | CPT/HCPCS: 80048; 83735; 83880 ==

== ENCOUNTER → 2022-11-17 08:49 | Outpatient (BNVA) | payer OTHER, SELFPAY | PROVIDERS: PCP Family Medicine; Visit Provider Nurse Practitioner Family | DX: I44.7 Left bundle-branch block, unspecified (principal); I42.9 Cardiomyopathy, unspecified; R06.00 Dyspnea, unspecified | CPT/HCPCS: 80048; 83880 ==

== ENCOUNTER → 2022-11-24 10:54 | Outpatient (BNVA) | payer OTHER, SELFPAY | PROVIDERS: PCP Family Medicine; Visit Provider Nurse Practitioner Family | DX: I50.20 Unspecified systolic (congestive) heart failure (principal); I42.9 Cardiomyopathy, unspecified; I44.7 Left bundle-branch block, unspecified | CPT/HCPCS: 80048; 83880 ==

== ENCOUNTER 2022-12-01 11:23 | Outpatient (CLI) | payer OTHER, SELFPAY ==
[2022-12-01 12:24] LABS: Anion Gap 18.4 (5-19); Blood Urea Nitrogen 43 mg/dL (6-20); Calcium 9.5 mg/dL (8.5-10.5); Carbon Dioxide 31 mmol/L (22-29); Chloride 89 mmol/L (98-107); Glomerular Filtration Rate 42.2 mL/min (90-130); Glucose 102 mg/dL (65-115); NT Pro B Type Natriuretic Pept 5387 pg/mL (0-125); Osmolality Calculated 291 mOsm/kg (285-295); Potassium 3.4 mmol/L (3.5-5.1); Sodium 135 mmol/L (136-145)
--- NOTE | 2022-12-01 13:00 | USCV_ITS ---
Treasure Waldron Age: 57 Gender: F : 1965 Exam Date: 12/01/2022 12:01 Ordering Phys: Karime Stovall Technologist: COLBY [place] [facility] [place]ication: PVC'S LVEF 15% DRY MIXER-D BP: 101 / 78 HR: 87 Rhythm: Sinus Technical Quality: Adequate MEASUREMENTS (Male / Female) Normal Values 2D ECHO LV Diastolic Diameter PLAX 5.6 cm 4.2 - 5.9 / 3.9 - 5.3 cm LV Systolic Diameter PLAX 4.9 cm LV Chamber Size 7.0 cm IVS Diastolic Thickness 1.3 cm 0.6 - 1.0 / 0.6 - 0.9 cm IVS Systolic Thickness 1.2 cm LVPW Diastolic Thickness 1.1 cm 0.6 - 1.0 / 0.6 - 0.9 cm LVPW Systolic Thickness 1.3 cm RV Chamber Size 3.1 cm LVOT Diameter 2.1 cm LV Ejection Fraction 2D Teich 17.9 % LA Diameter 3.5 cm LA Width 3.9 cm LA Height 4.4 cm RA Width 3.3 cm RA Height 4.1 cm Aorta at Sinotubular Diameter 2.8 cm IVC Diameter 1.3 cm M-MODE Aortic Annulus Diameter 2.6 cm LA Ao Ratio MM 1.7 MV E Point Septal Separation 2.2 cm DOPPLER AV Peak Velocity 172.3 cm/s LVOT Peak Velocity 53.6 cm/s AV Area Cont Eq vti 1.1 cm squared AV Area Cont Eq pk 1.1 cm squared MV Area PHT 5.0 cm squared Mitral E to A Ratio 1.2 MV E' Velocity 43.0 cm/s Mitral E to MV E' Ratio 11.9 Mitral E to LV E' Lateral Ratio 10.9 Mitral E to LV E' Septal Ratio 13.1 TR Peak Velocity 292.3 cm/s TR Peak Gradient 34.2 mmHg TR Mean Velocity 226.4 cm/s TR Mean Gradient 23.6 mmHg TR Velocity Time Integral 121.7 cm TV Peak E Velocity 102.0 cm/s Right Atrial Pressure 3.0 mmHg Pulmonary Artery Systolic Pressu 37.2 mmHg RV Acceleration Time 0.1 s RV Ejection Time 0.3 s RV AcT/ET 0.4 FINDINGS Left Ventricle Severe global hypokinesis with ejection fraction about 20%. LV severely dilated. Right Ventricle Normal in size and function. There is a pacemaker wire seen Right Atrium Mildly dilated Left Atrium Moderately dilated. Mitral Valve Structurally normal with moderate mitral regurgitation. No significant mitral valve stenosis Aortic Valve Structurally normal with no significant aortic stenosis or aortic insufficiency. Tricuspid Valve Structurally normal with mild to moderate mitral regurgitation. Pulmonic Valve Not well-visualized Pericardium Normal with no evidence of effusion Aorta Normal IVC Grossly normal CONCLUSIONS Severe LV dysfunction with ejection fraction about 20%. Moderate mitral regurgitation. Mari Goel MD (Electronically Signed) Final Date: 02 December 2022 11:43 S
== END 2022-12-01 11:24 | disposition home or self-care (01) ==
LOC: RAD 11:27
PROVIDERS: PCP Family Medicine; Visit Provider Nurse Practitioner Family
DX: I42.9 Cardiomyopathy, unspecified (principal); I50.20 Unspecified systolic (congestive) heart failure; R06.00 Dyspnea, unspecified; I34.0 Nonrheumatic mitral (valve) insufficiency; Z95.810 Presence of automatic (implantable) cardiac defibrillator
CPT/HCPCS: 80048; 83880; 93306

== ENCOUNTER 2022-12-04 18:59 | Observation (INO) | payer OTHER, MEDICAID, SELFPAY ==
[2022-12-04] VITALS (7 sets, daily range): BP systolic 92–109; BP diastolic 66–74; PULSE 72–104; RESP 16–18; TEMP 36.7–36.8; O2SAT 94–96; BMI 40.6
--- NOTE | 2022-12-04 19:01 | XRR_ITS ---
PROCEDURE INFORMATION: Exam: XR Chest Exam date and time: 12/04/2022 7:31 PM Age: 57 years old Clinical indication: Pain; Chest pressure; Prior surgery; Surgery date: 1-6 months; Surgery type: Pacer defib; Additional info: Cp TECHNIQUE: Imaging protocol: Radiologic exam of the chest. Views: 1 view. COMPARISON: CT chest w con* [id number] 09/16/2021 10:46 AM FINDINGS: Tubes, catheters and devices: Pacemaker. Spinal stimulator. Lungs: Unremarkable. No consolidation. Pleural spaces: Unremarkable. No pleural effusion. No pneumothorax. Heart/Mediastinum: Cardiomegaly. Bones/joints: Unremarkable. XR/XR chest 1V portable [id number] IMPRESSION: Negative for infiltrate, cardiomegaly.
--- NOTE | 2022-12-04 19:41 | ECG_ITS ---
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 Measurements Intervals [place] Rate: 86 P: 76 MS: 178 QRS: -11 QRSD: 186 T: 46 QT: 447 QTc: 538 Interpretive Statements SINUS RHYTHM LEFT BUNDLE BRANCH BLOCK [120+ ms QRS DURATION, 80+ ms Q/S IN V1/V2, 85+ ms R IN I/aVL/V5/V6] Compared to ECG 03/10/2022 11:19:29 No significant changes Electronically Signed On 12-05-2022 16:27:38 CDT by Nora Yancey M.D. [id number]
[2022-12-04 19:43] LABS: INR 0.91 (0.8-1.2)
[2022-12-04 19:51] LABS: Alanine Aminotransferase 16 U/L (0-33); Albumin Level 4.5 g/dL (3.5-5.2); Alkaline Phosphatase 56 U/L (35-105); Aspartate Amino Transferase 18 U/L (0-32); Blood Urea Nitrogen 45 mg/dL (6-20); Calcium 9.2 mg/dL (8.5-10.5); Carbon Dioxide 33 mmol/L (22-29); Chloride 89 mmol/L (98-107); Globulin 3.5 g/dL (1.3-4.6); Glomerular Filtration Rate 33.2 mL/min (90-130); Glucose 120 mg/dL (65-115); Osmolality Calculated 293 mOsm/kg (285-295); Sodium 135 mmol/L (136-145); Total Bilirubin 0.2 mg/dL (0.15-1.2)
[2022-12-04 19:52] LABS: Troponin(5th) Baseline 34 ng/L (0-10)
[2022-12-04 19:53] LABS: Basophils # 0.1 10^3/uL (0.0-0.1); Basophils % 0.7 %; Eosinophils # 0.1 10^3/uL (0.0-0.8); Eosinophils % 1.3 %; Hematocrit 39.6 % (37.0-47.0); Hemoglobin 13.2 g/dL (11.5-15.3); Lymphocytes # 2.8 10^3/uL (0.8-4.8); Lymphocytes % 31.2 %; Mean Corpuscular HGB Conc 33.3 g/dL (30.0-36.0); Mean Platelet Volume 9.5 fL (7.4-10.4); Monocytes # 1.2 10^3/uL (0.2-0.9); Monocytes % 12.9 %; Neutrophils # 4.86 10^3/uL (1.8-7.7); Neutrophils % 53.7 %; Nucleated Red Blood Cells % 0 %; Platelet Count 271 10^3/cmm (130-400); Red Blood Count 4.26 10^6/uL (4.1-5.3); Red Cell Distribution Width 13.1 % (12.1-15.1); White Blood Count 9.1 10^3/uL (4.0-10.0)
--- NOTE | 2022-12-04 19:59 | W.ED.CHESTPA ---
HPI - Chest Pain General: Chief Complaint: Chest Pain Stated Complaint: chest pain Time Seen by Provider: 12/04/22 19:49 Source: patient Mode of arrival: ambulatory Limitations: no limitations History of Present Illness: 57-year-old female has extensive history of cardiomyopathy she states she had increasing shortness of breath she states that her sewer bricklayer called her today and told her to come to the ER because her ejection fraction is gotten worse on her echo that she had had on Sunday she states that she has been on Lasix she states they have also I have changed her blood pressure medicine that stopped her lisinopril increased her metoprolol and she has been hypotensive. She denies any chest pain to me states she has felt very short of breath. Associated symptoms: Reports dyspnea; Deny abdominal pain, fever(s), nausea or vomiting Review of Systems Const: Denies: fever(s), chills, body aches or change in appetite Eyes: Denies: blurry vision or eye discomfort ENMT: Denies: throat pain or dental pain Card: Reports: chest pain Resp: Reports: dyspnea GI: Denies: abdominal pain, nausea, vomiting or diarrhea Musc: Denies: neck pain or back pain Skin/Breast: Denies: rash Neuro: Denies: headache(s) PFSH ED PFSH: Medical History Cardiac resynchronization therapy defibrillator (COLLECTIONS ANALYST-D) in place Cardiomyopathy Nonischemic, nonobstructive CAD?CAG 2021 Carpal tunnel syndrome CHF NYHA class IV Chronic back pain COPD (chronic obstructive pulmonary disease) Crohn disease Diabetes type 2, controlled Essential hypertension GERD (gastroesophageal reflux disease) Hyperlipidemia Hypothyroid Left bundle branch block Morbid obesity AURELIO on CPAP Presence of neurostimulator Pulmonary nodule Systolic heart failure Surgical History History of carpal tunnel surgery Previous section Family History Other CAD (coronary artery disease) Hypertension Social History Smoking and tobacco status: current every day smoker cigarettes Packs smoked per day: 1 Years cigarettes smoked: 42 Alcohol intake: former Substance/Drug Use: never Marital status: Single Number of children: 1 Pets and animals: Yes Pets & animals: dog(s) Physical Exam Const: COMMON NORMALS: patient oriented x3 HENMT: COMMON NORMALS: normocephalic and atraumatic HEAD & SCALP: normocephalic and atraumatic Eye: COMMON NORMALS: Equal, round and reactive pupils present and EOMs intact bilaterally PUPIL: Yes Equal, round and reactive pupils present Neck/C-Spine: COMMON NORMALS: full ROM and supple Chest: COMMONS NORMALS: normal inspection of the chest and normal palpation of entire chest wall Resp: COMMON NORMALS: normal respiratory effort, No retractions, No use of accessory muscles and clear to auscultation bilaterally AUSCULTATION: clear to auscultation bilaterally Cardio: COMMON NORMALS: regular rate, regular rhythm and No murmurs present (Cardio) RATE: regular rate RHYTHM: regular rhythm GI: COMMON NORMALS: Normal to inspection, nondistended, normoactive bowel sounds present, Soft to palpation, non-tender and no masses PALPATION: Yes Soft to palpation Extremity: COMMON NORMALS: normal to inspection and full ROM Neuro: COMMON NORMALS: patient oriented x3, moves all extremities and no focal motor deficits Psych: COMMON NORMALS: mental status grossly normal, Normal thought process present and cooperative THOUGHT PROCESS: Normal thought process present Skin: COMMON NORMALS: no rashes or lesions noted and no wounds GENERAL SKIN EXAM: no rashes or lesions noted Course Vital Signs: Vital signs: Vital Signs Temperature 98.3 F 12/04/22 19:43 Pulse Rate 81 12/04/22 21:32 Respiratory Rate 16 12/04/22 21:32 Blood Pressure 109/67 12/04/22 21:32 Pulse Oximetry 94 12/04/22 21:32 Oxygen Delivery Me thod Room Air 12/04/22 19:43 MDM - Chest Pain Medical Decision Making Patient presents here with dyspnea she does have a long history of cardiomyopathy her nurse practitioner in the cardiac clinic at called her and had her come in as her EF is worsened she does have some increased dyspnea her BNP is elevated she is in no distress here she does have some hypotension she has had some changes in her blood pressure meds as well. I did speak to her sewer bricklayer Dr. Haynes will admit for observation here at this time due to her cardiomyopathy and her hypotension. Medical Records I reviewed the patient's medical records. Lab Data I reviewed the patient's lab results. 12/04/22 19:14 12/04/22 19:14 Radiology Impressions Chest X-Ray 12/04/22 19:01 IMPRESSION: Negative for infiltrate, cardiomegaly. Laboratory Results WBC 9.1 10^3/uL (4.0-10.0) 12/04/22 19:14 RBC 4.26 10^6/uL (4.1-5.3) 12/04/22 19:14 Hgb 13.2 g/dL (11.5-15.3) 12/04/22 19:14 Hct 39.6 % (37.0-47.0) 12/04/22 19:14 MCV 93.0 fl (81-99) 12/04/22 19:14 MCH 31.0 pg (28.0-34.0) 12/04/22 19:14 MCHC 33.3 g/dL (30.0-36.0) 12/04/22 19:14 RDW 13.1 % (12.1-15.1) 12/04/22 19:14 Plt Count 271 10^3/cmm (130-400) 12/04/22 19:14 MPV 9.5 fL (7.4-10.4) 12/04/22 19:14 Neut % (Auto) 53.7 % 12/04/22 19:14 Lymph % (Auto) 31.2 % 12/04/22 19:14 [place] % (Auto) 12.9 % 12/04/22 19:14 Eos % (Auto) 1.3 % 12/04/22 19:14 Baso % (Auto) 0.7 % 12/04/22 19:14 Neut # (Auto) 4.86 10^3/uL (1.8-7.7) 12/04/22 19:14 Lymph # (Auto) 2.8 10^3/uL (0.8-4.8) 12/04/22 19:14 [place] # (Auto) 1.2 10^3/uL (0.2-0.9) H 12/04/22 19:14 Eos # (Auto) 0.1 10^3/uL (0.0-0.8) 12/04/22 19:14 Baso # (Auto) 0.1 10^3/uL (0.0-0.1) 12/04/22 19:14 Nucleated RBC % (auto) 0 % 12/04/22 19:14 Nucleated RBCs # 0.0 /100WBC 12/04/22 19:14 PT 12.50 SECONDS (12.1-14.9) 12/04/22 19:14 INR 0.91 (0.8-1.2) 12/04/22 19:14 Sodium 135 mmol/L (136-145) L 12/04/22 19:14 Potassium 3.0 mmol/L (3.5-5.1) L 12/04/22 19:14 Chloride 89 mmol/L (98-107) L 12/04/22 19:14 Carbon Dioxide 33 mmol/L (22-29) H 12/04/22 19:14 Anion Gap 16.0 (5-19) 12/04/22 19:14 BUN 45 mg/dL (6-20) H 12/04/22 19:14 Creatinine 1.6 mg/dL (0.5-0.9) H 12/04/22 19:14 GFR Calculation 33.2 mL/min (90-130) L 12/04/22 19:14 Glucose 120 mg/dL (65-115) H 12/04/22 19:14 Calculated Osmolality 293 mOsm/kg (285-295) 12/04/22 19:14 Calcium 9.2 mg/dL (8.5-10.5) 12/04/22 19:14 Total Bilirubin 0.2 mg/dL (0.15-1.2) 12/04/22 19:14 AST 18 U/L (0-32) 12/04/22 19:14 ALT 16 U/L (0-33) 12/04/22 19:14 Alkaline Phosphatase 56 U/L (35-105) 12/04/22 19:14 Troponin T Baseline 34 ng/L (0-10) H 12/04/22 19:14 Troponin T 120 Minute 33.77 ng/L (0-10) H 12/04/22 21:08 Delta Troponin T -0.23 ABS# (0-10) L 12/04/22 21:08 NT-Pro-B Natriuret Pep 5737 pg/mL (0-125) H 12/04/22 19:14 Total Protein 8.0 g/dL (6.6-8.7) 12/04/22 19:14 Albumin 4.5 g/dL (3.5-5.2) 12/04/22 19:14 Globulin 3.5 g/dL (1.3-4.6) 12/04/22 19:14 EKG Data EKG 1: I personally reviewed and interpreted this EKG as follows: EKG interpretation date: 12/04/22 EKG interpretation time: 19:41 Interpretation: nsr hr [address] elevation qrs 186 qtc 491 Discharge Plan Discharge Patient Disposition: Admitted As Inpatient Clinical Impression: Cardiomyopathy, Dyspnea Condition: Stable Prescriptions: No Action pantoprazole 40 mg tablet,delayed release (DR/EC) 40 mg PO BID loratadine 10 mg tablet 10 mg PO BEDTIME levothyroxine 75 mcg tablet 75 mcg PO QAM aspirin [Adult Low Dose Aspirin] 81 mg tablet,delayed release (DR/EC) 81 mg PO QAM albuterol sulfate 90 mcg/actuation HFA aerosol inhaler 2 puff inhalation Q6H PRN (Reason: Shortness Of Breath) infliximab [Remicade] 100 mg recon soln See Rx Instructions .ROUTE .COMPLEX Rx Instructions: EVERY 6 WEEKS @ [facility] furosemide 40 mg tablet 80 mg PO BID ferrous gluconate 324 mg (37.5 mg iron) tablet 324 mg PO DAILY Qty: 30 3RF metoprolol succinate 25 mg tablet extended release 24 hr 25 mg PO DAILY Qty: 60 4RF alprazolam 0.25 mg tablet 0.25 mg PO BID PRN (Reason: Anxiety) potassium chloride 20 mEq tablet extended release 20 meq PO BID Qty: 180 1RF magnesium oxide 400 mg magnesium capsule 400 mg PO BID Qty: 60 6RF spironolactone 25 mg tablet 25 mg PO DAILY Qty: 90 3RF losartan [Cozaar] 25 mg tablet 12.5 mg PO DAILY Qty: 45 3RF metolazone 2.5 mg tablet 2.5 mg PO .every other day Qty: 30 0RF Rx Instructions: take with extra 20mEq potassium, 30 minutes before AM furosemide rosuvastatin 10 mg tablet 10 mg PO BEDTIME acetaminophen [Tylenol Extra Strength] 500 mg tablet 500 mg PO Q4H PRN (Reason: Pain) Qty: 0 0RF metformin 500 mg tablet 1,000 mg PO BID Qty: 0 0RF Rx Instructions: Start Metformin 09/21/2021 evening paroxetine HCl 20 mg tablet 40 mg PO BEDTIME Qty: 0 0RF Referrals: Sascha Carcamo [Primary Care Provider] - Coding Level of Care Code ED Final Cleaner for Doug De La O
--- NOTE | 2022-12-04 21:02 | ECG_ITS ---
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 Measurements Intervals [place] Rate: 82 P: 76 [place]: 196 QRS: 99 QRSD: 198 T: -29 QT: 469 QTc: 548 Interpretive Statements SINUS RHYTHM POSSIBLE RIGHT ATRIAL ENLARGEMENT [0.25mV P-WAVE] BORDERLINE RIGHT AXIS DEVIATION [QRS AXIS > 90] INTRAVENTRICULAR CONDUCTION DELAY [130+ ms QRS DURATION] INFERIOR MYOCARDIAL INFARCTION , OF INDETERMINATE AGE [40+ ms Q WAVE AND/OR ST/T ABNORMALITY IN II/aVF] Compared to ECG 03/10/2022 11:19:29 Intraventricular conduction delay now present Myocardial infarct finding now present Left bundle-branch block no longer present Electronically Signed On 12-05-2022 16:30:19 CDT by Nora Yancey M.D. [id number]
[2022-12-04 21:19] LABS: NT Pro B Type Natriuretic Pept 5737 pg/mL (0-125)
[2022-12-04 21:31] LABS: Troponin 5 2HR 33.77 ng/L (0-10)
[2022-12-04 21:39] LABS: Troponin 5 2HR Delta -0.23 ABS# (0-10)
--- NOTE | 2022-12-04 23:00 | P.HP_ITS ---
Providers/Chief Complaint Admitting Physician: Ascencion Pittman MD Primary Care Provider: Sascha Carcamo Chief Complaint: chest pain History of Present Illness Treasure Waldron is a 57 year old female with history of nonischemic cardiomyopathy status post AICD in April, follows up with Dr. Penaloza, present to the hospital for abnormal echo report. Patient is stating that she h as not expressed any chest pain but endorsing shortness of breath on exertion, she sleeps in a hospital bed in a reclined position, recently her lisinopril was discontinued and metoprolol was increased she was put on metolazone along diuretics, her blood pressure was staying low in the low 90s which attributed towards her weakness and fatigue. She is smoking half pack a day. Does not drink alcohol. Review of Systems Const: Denies: fever(s) Eyes: Denies: change in vision ENMT: Denies: throat pain Card: Reports: dyspnea on exertion; Denies: chest pain Resp: Reports: dyspnea GI: Denies: abdominal pain : Denies: flank pain Musc: Denies: neck pain Medications/Allergies Home Medications Medication Instructions Recorded Confirmed Last Taken Type aspirin 81 mg tablet,delayed 81 mg PO QAM 08/09/20 12/05/22 03/09/22 History release (Adult Low Dose Aspirin) levothyroxine 75 mcg tablet 75 mcg PO QAM 08/09/20 12/05/22 03/14/22 History loratadine 10 mg tablet 10 mg PO BEDTIME 08/09/20 12/05/22 03/13/22 History pantoprazole 40 mg tablet,delayed 40 mg PO BID 08/09/20 12/05/22 03/14/22 History release albuterol sulfate 90 mcg/actuation 2 puff inhalation Q6H PRN 04/05/21 12/05/22 03/13/22 History aerosol inhaler Shortness Of Breath infliximab 100 mg intravenous See Rx Instructions .Route .COMPLEX 04/05/21 12/05/22 02/27/22 History solution (Remicade) rosuvastatin 10 mg tablet 10 mg PO BEDTIME 09/15/21 12/05/22 03/13/22 History alprazolam 0.25 mg tablet 0.25 mg PO BID PRN Anxiety 11/01/21 12/05/22 03/13/22 History furosemide 40 mg tablet 80 mg PO BID 12/14/21 12/05/22 03/13/22 History magnesium oxide 400 mg PO BID #60 caps 04/27/22 12/05/22 Unknown Rx metolazone 2.5 mg tablet 2.5 mg PO .every other day #30 tabs 11/06/22 12/04/22 1 Day Ago Rx ~12/03/22 metoprolol succinate 25 mg 25 mg PO BID 12/04/22 12/05/22 Unknown History tablet,extended release 24 hr acetaminophen 500 mg tablet 1,000 mg PO Q4H PRN Pain 12/05/22 12/05/22 Unknown History (Tylenol Extra Strength) ferrous gluconate 324 mg (37.5 mg 324 mg PO QAM 12/05/22 12/05/22 Unknown History iron) tablet metformin 1,000 mg tablet 1,000 mg PO BID 12/05/22 12/05/22 Unknown History paroxetine HCl 40 mg tablet 40 mg PO BEDTIME 12/05/22 12/05/22 Unknown History potassium chloride 20 mEq See Rx Instructions .Route .COMPLEX 12/05/22 12/05/22 Unknown History tablet,extended release(part/cryst) spironolactone 25 mg tablet 25 mg PO QAM 12/05/22 12/05/22 Unknown History Allergies Allergy/AdvReac Type Severity Reaction Status Date / Time levofloxacin Allergy Unknown Unknown Verified 12/04/22 19:43 sacubitril [From Entresto] Allergy ADR-Itching Verified 12/04/22 19:43 valsartan [From Entresto] Allergy ADR-Itching Verified 12/04/22 19:43 PFSH Acute PFSH: Medical History Cardiac resynchronization therapy defibrillator (TEST ENGINE OPERATOR-D) in place Cardiomyopathy Nonischemic, nonobstructive CAD?CAG 2021 Carpal tunnel syndrome CHF NYHA class IV Chronic back pain COPD (chronic obstructive pulmonary disease) Crohn disease Diabetes type 2, controlled Essential hypertension GERD (gastroesophageal reflux disease) Hyperlipidemia Hypothyroid Left bundle branch block Morbid obesity AURELIO on CPAP Presence of neurostimulator Pulmonary nodule Systolic heart failure Surgical History History of carpal tunnel surgery Previous section Family History Other CAD (coronary artery disease) Hypertension Social History Smoking and tobacco status: current every day smoker cigarettes Packs smoked per day: 1 Years cigarettes smoked: 42 Alcohol intake: former Substance/Drug Use: never Marital status: Single Number of children: 1 Pets and animals: Yes Pets & animals: dog(s) Vitals/I&O/Wt Last Vital Signs Temp 98.3 F 12/04/22 22:35 Pulse 81 12/04/22 22:35 Resp 16 12/04/22 22:35 BP 109/67 12/04/22 22:35 Pulse Ox 94 12/04/22 22:35 O2 Del Method Room Air 12/04/22 19:43 Weight last 48 hrs Weight 91.172 kg Physical Exam Narrative: Patient laying in recliner; position Clinically looks fluid overloaded Pleasant and cooperative Currently on room air S1, S2 Awake and alert Nonfocal neuro exam Abdomen distended however soft No active pain or shortness of breath at rest Family at the bedside Data 12/05/22 04:00 12/05/22 04:00 A&P Assessment and plan (1) Dyspnea: (2) Cardiac resynchronization therapy defibrillator (TEST ENGINE OPERATOR-D) in place: (3) Left bundle branch block: (4) Hyperlipidemia: (5) Diabetes type 2, controlled: (6) COPD (chronic obstructive pulmonary disease): (7) Systolic heart failure: (8) Dyspnea on exertion: Plan Acute systolic CHF exacerbation Dyspnea on exertion Clinically looks fluid overloaded Judicious use of diuretics to avoid low blood pressure signs of contraction alkalosis evident on the BMP Manage electrolytes monitor for now We will consult Recent echo showed EF of 20% Patient carries history of Crohn disease no acute flare Full code Cardiac diet As per the patient she has been hypertensive with metoprolol along diuretics Monitor blood pressure closely with telemetry AICD was placed April last year Attestations Medical Necessity Statement*: Anticipating discharge within 48 hours Diagnoses Dyspnea R06.00 Cardiac resynchronization therapy defibrillator (TEST ENGINE OPERATOR-D) in place Z95.810 Left bundle branch block I44.7 Hyperlipidemia E78.5 Diabetes type 2, controlled E11.9 COPD (chronic obstructive pulmonary disease) J44.9 Systolic heart failure I50.20 Dyspnea on exertion R06.00
--- NOTE | 2022-12-04 23:09 | PC.NURSE ---
Addendum entered by Maggie Cheek RN 12/04/22 23:25: Patient also states that she wears a CPAP at home at night. Dr. Milton. Original Note: Patient states she has not has her night time dose of the following medications and is asking for them: Potassium Chloride, Pantoprazole, Furosemide, Loratadine, Magnesium Oxide, Metoprolol Succinate, Rosuvastatin, and Paroxetine. Dr. Milton notified.
[2022-12-04 23:24] LABS: D Dimer 0.32 ug/mIFEU (0-0.59)
[2022-12-04] MEDS: metoprolol succinate ER (24 HR) 25 mg Tablet 12.5 MG PO (23:40)
[2022-12-04] MEDS: atorvastatin 40 mg Tablet PO (23:40)
[2022-12-04] MEDS: heparin 5,000 unit/mL INJ 1 mL 5000 UNIT SUBCUT (23:40)
[2022-12-04] MEDS: pantoprazole DR 40 mg Tablet PO (23:40)
[2022-12-04] MEDS: PARoxetine 20 mg Tablet 40 MG PO (23:40)
--- NOTE | 2022-12-04 23:56 | ECG_ITS ---
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 Measurements Intervals [place] Rate: 75 P: 73 AL: 200 QRS: 26 QRSD: 198 T: 36 QT: 482 QTc: 539 Interpretive Statements SINUS RHYTHM WITH OCCASIONAL VENTRICULAR PREMATURE COMPLEXES INTRAVENTRICULAR CONDUCTION DELAY [130+ ms QRS DURATION] Compared to ECG 12/04/2022 21:55:51 Ventricular premature complex(es) now present Myocardial infarct finding no longer present Electronically Signed On 12-05-2022 16:25:25 CDT by Nora Yancey M.D. [email or web address].[email or web address]/store/[id number]
[2022-12-05] VITALS (12 sets, daily range): BP systolic 95–103; BP diastolic 65–78; PULSE 71–96; RESP 17–24; TEMP 36.3–37; O2SAT 90–99
[2022-12-05] MEDS: potassium chloride ER 20 mEq Tablet 40 MEQ PO ×2 (00:05→05:48)
--- NOTE | 2022-12-05 02:42 | PC.NURSE ---
Patient's home medication bottles locked in [employer].
--- NOTE | 2022-12-05 03:58 | PC.NURSE ---
Addendum entered by Maggie Cheek RN 12/05/22 04:04: Lab notified to draw all morning labs stat, now, per Dr. Milton. Original Note: Patient currently in bigeminy on tele monitor. Earlier in shift, patient was only having occasional PVCs. Dr. Milton notified.
[2022-12-05 04:05] LABS: Basophils % 0.6 %; Eosinophils # 0.2 10^3/uL (0.0-0.8); Eosinophils % 2.1 %; Hematocrit 38.9 % (37.0-47.0); Hemoglobin 12.7 g/dL (11.5-15.3); Lymphocytes # 2.8 10^3/uL (0.8-4.8); Mean Corpuscular HGB Conc 32.6 g/dL (30.0-36.0); Mean Corpuscular Hemoglobin 30.2 pg (28.0-34.0); Mean Corpuscular Volume 92.6 fl (81-99); Monocytes % 13.3 %; Neutrophils # 3.23 10^3/uL (1.8-7.7); Neutrophils % 44.9 %; Nucleated Red Blood Cells % 0 %; Platelet Count 233 10^3/cmm (130-400); Red Cell Distribution Width 12.9 % (12.1-15.1); White Blood Count 7.2 10^3/uL (4.0-10.0)
[2022-12-05 04:22] LABS: Anion Gap 16.4 (5-19); Blood Urea Nitrogen 40 mg/dL (6-20); Calcium 9.1 mg/dL (8.5-10.5); Carbon Dioxide 33 mmol/L (22-29); Chloride 92 mmol/L (98-107); Glomerular Filtration Rate 42.2 mL/min (90-130); Glucose 113 mg/dL (65-115); Magnesium 1.5 mg/dL (1.7-2.3); Osmolality Calculated 297 mOsm/kg (285-295); Potassium 3.4 mmol/L (3.5-5.1); Sodium 138 mmol/L (136-145)
[2022-12-05] MEDS: magnesium sulfate premix 2 GM/50 ML PIGGYBACK IV (04:51)
[2022-12-05] MEDS: lidocaine 1% 5 ML in potassium chloride premix 100 ML 26.25 ML IV (05:34)
--- NOTE | 2022-12-05 05:43 | PC.NURSE ---
Patient unable to tolerate IV Potassium. IV Potassium shut off as patient states I can't handle that for four hours. It de la fuente like a son of a bitch. Dr. Milton notified. PO Potassium ordered.
[2022-12-05 06:44] LABS: Glucose Point of Care 214 mg/dL (70-110)
--- NOTE | 2022-12-05 10:03 | PC.CHAP ---
Pastoral Care Encounter/Spiritual Assessment Type of Contact [] Declined liner checker visit [] Patient/Family/Request visit [] Outpatient visit [] Follow-up visit [] Physician referral [] Code/Alert [x] Routine visit [] Staff referral [] Actively dying [] Patient sleeping [] Family support [] [] Out of room [] Palliative care [] [] Receiving care in room [] Pre-surgical visit [] Trauma [] Long length of stay [] ICU visit [] Other: Relational/Emotional Strength [x] Patient feels connected with others/family/visitors/staff [] Distress [] Loneliness/isolation [] Abandonment Spirituality of Patient [x Person of Micaela [] Attends Uatsdin of their Micaela [x] Believes in Prayer [] Reads Bible or Yazidism materials [] There are Spiritual issues to be addressed Geophysical Drafter Interventions [x] Prayer [x] Active listening [] Non-anxious presence [x] Spiritual/emotional support [] Crisis/trauma care [] Spiritual counseling [] Bereavement support [] Provided bereavement packet [] Provided Bible/devotional materials [] Provided toy/stuffed animal, coloring book to patient or family member [] Provided Communion [] Anointing/[place] [] Salvation [x] Completed spiritual assessment [] Other: Impact on Illness or Injury [] Angry [] Fearful [] Anxious [] Often cries [] Exhaustion [] Unable to work [] Unable to attend presybeterian [] Unable to walk/stand [] Unable to read [] Unable to drive [] Unable to eat/drink [] Unable to sleep [] Unable to be with family [] Patient intubated [] Other: Summary Time spent with patient 5 min
[2022-12-05] MEDS: pantoprazole DR 40 mg Tablet PO ×2 (10:13→17:26)
[2022-12-05] MEDS: magnesium oxide 400 mg tablet PO (10:13)
[2022-12-05] MEDS: potassium chloride ER 20 mEq Tablet PO ×2 (10:13→17:26)
[2022-12-05] MEDS: metoprolol succinate ER (24 HR) 25 mg Tablet 12.5 MG PO ×2 (10:13→17:26)
[2022-12-05] MEDS: insulin lispro 100 unit/1 mL SUBCUT (10:14)
[2022-12-05] MEDS: nicotine 14 mg Patch 1 PATCH TRANSDERMA (10:14)
[2022-12-05] MEDS: bumetanide 1 mg Tablet PO (10:14)
[2022-12-05 10:47] LABS: Glucose Point of Care 183 mg/dL (70-110)
--- NOTE | 2022-12-05 10:49 | P.CONIM_ITS ---
Providers/Reason For Consult Consulting Physician/Specialty*: Dr. Yancey, Cardiology Reason for Consult*: CHF exacerbation Attending Physician: Ascencion Pittman MD Primary Care Provider: Sascha Carcamo History of Present Illness History of Present Illness Treasure Waldron is a 57 year old female with history of non ischemic cardiomyopathy (LVEF=15-20%), LBBB, s/p TELEPHONE DIRECTORY DISTRIBUTOR DRIVER-D insertion on 04/25/2022, HTN, DM- 2, Crohn's disease. Biotronik device by Dr Castaneda, [facility] [place]. The coronary sinus could not be cannulated so decision was made to proceed with left bundle area pacing, Biotronik lead was placed through the RV septum.? Multiple attempts for left bundle area pacing were made with the Biotronik lead however were not successful.? A Medtronic lead was advanced to the right ventricle and fixated in the mid RV septum.? This produced favorable QRS morphology with RBBB pattern and QRSd 130 msec.?It was recommended to perform echocardiogram 3 months after TELEPHONE DIRECTORY DISTRIBUTOR DRIVER-D and, if LVEF did not improve recommendation was for epicardial LV lead placement. She missed her f/u appointments at [place] with Dr. Daley on account of being sick and echo was eventually performed last week with no improvement in LV function. Her most recent device interrogation with 16% PVC burden and increasing thoracic impedence.? She was previously 99% BiV paced that down to 83%.? EKG with sinus rhythm and LBBB. She has been having more abdominal distention, shortness of breath with exertion and orthopnea. She has never had LE edema. Labs with increasing NT Pro-BNP. Review of Systems Const: Denies: fever(s) Eyes: Denies: change in vision ENMT: Denies: throat pain Card: Reports: dyspnea on exertion; Denies: chest pain Resp: Reports: dyspnea GI: Denies: abdominal pain : Denies: flank pain Musc: Denies: neck pain Skin/Breast: Denies: rash or pruritus Neuro: Denies: numbness in extremities, weakness in extremities or frequent falls Psych: Reports: depression; Denies: anxiety Oleksandr/Lymph: Denies: petechiae or purpura Medications/Allergies Home Medications Medication Instructions Recorded Confirmed Last Taken Type aspirin 81 mg tablet,delayed 81 mg PO QA 08/09/20 12/05/22 03/09/22 History release (Adult Low Dose Aspirin) levothyroxine 75 mcg tablet 75 mcg PO QAM 08/09/20 12/05/22 03/14/22 History loratadine 10 mg tablet 10 mg PO BEDTIME 08/09/20 12/05/22 03/13/22 History pantoprazole 40 mg tablet,delayed 40 mg PO BID 08/09/20 12/05/22 03/14/22 History release albuterol sulfate 90 mcg/actuation 2 puff inhalation Q6H PRN 04/05/21 12/05/22 03/13/22 History aerosol inhaler Shortness Of Breath infliximab 100 mg intravenous See Rx Instructions .Route .COMPLEX 04/05/21 12/05/22 02/27/22 History solution (Remicade) rosuvastatin 10 mg tablet 10 mg PO BEDTIME 09/15/21 12/05/22 03/13/22 History alprazolam 0.25 mg tablet 0.25 mg PO BID PRN Anxiety 11/01/21 12/05/22 03/13/22 History furosemide 40 mg tablet 80 mg PO BID 12/14/21 12/05/22 03/13/22 History magnesium oxide 400 mg PO BID #60 caps 04/27/22 12/05/22 Unknown Rx metolazone 2.5 mg tablet 2.5 mg PO .every other day #30 tabs 11/06/22 12/04/22 1 Day Ago Rx ~12/03/22 metoprolol succinate 25 mg 25 mg PO BID 12/04/22 12/05/22 Unknown History tablet,extended release 24 hr acetaminophen 500 mg tablet 1,000 mg PO Q4H PRN Pain 12/05/22 12/05/22 Unknown History (Tylenol Extra Strength) ferrous gluconate 324 mg (37.5 mg 324 mg PO QAM 12/05/22 12/05/22 Unknown His tory iron) tablet metformin 1,000 mg tablet 1,000 mg PO BID 12/05/22 12/05/22 Unknown History paroxetine HCl 40 mg tablet 40 mg PO BEDTIME 12/05/22 12/05/22 Unknown History potassium chloride 20 mEq See Rx Instructions .Route .COMPLEX 12/05/22 12/05/22 Unknown History tablet,extended release(part/cryst) spironolactone 25 mg tablet 25 mg PO QAM 12/05/22 12/05/22 Unknown History Allergies Allergy/AdvReac Type Severity Reaction Status Date / Time levofloxacin Allergy Unknown Unknown Verified 12/04/22 19:43 sacubitril [From Entresto] Allergy ADR-Itching Verified 12/04/22 19:43 valsartan [From Entresto] Allergy ADR-Itching Verified 12/04/22 19:43 Current Medications Generic Name Dose Route Start Last Admin Trade Name Rosy PRN Reason Stop Dose Admin Atorvastatin Calcium 40 mg 12/04/22 23:30 12/04/22 23:40 Atorvastatin 40 Mg Tablet PO 40 mg BEDTIME KATRIN Administration Bumetanide 1 mg 12/05/22 09:00 12/05/22 10:14 Bumetanide 1 Mg Tablet PO 1 mg DAILY KATRIN Administration Heparin Sodium (Porcine) 5,000 unit 12/04/22 23:15 12/04/22 23:40 Heparin 5,000 Unit/Ml Inj 1 Ml SUBCUT 5,000 unit Q12H KATRIN Administration Insulin Human Lispro 0 unit 12/05/22 08:00 12/05/22 10:14 Insulin Lispro 100 Unit/1 Ml SUBCUT 6 unit TIDWM KATRIN Administration Protocol Magnesium Oxide 400 mg 12/05/22 09:00 12/05/22 10:13 Magnesium Oxide 400 Mg Tablet PO 400 mg BID KATRIN Administration Metoprolol Succinate 12.5 mg 12/04/22 23:15 12/05/22 10:13 Metoprolol Succinate Er (24 Hr) 25 Mg Tablet PO 12.5 mg BID KATRIN Administration Nicotine 1 patch 12/05/22 09:00 12/05/22 10:14 Nicotine 14 Mg Patch TRANSDERMA 1 patch DAILY KATRIN Administration Pantoprazole Sodium 40 mg 12/04/22 23:15 12/05/22 10:[address] 40 Mg Tablet PO 40 mg BID KATRIN Administration Paroxetine HCl 40 mg 12/04/22 23:15 12/04/22 23:40 Paroxetine 20 Mg Tablet PO 40 mg BEDTIME KATRIN Administration Potassium Chloride 20 meq 12/05/22 09:00 12/05/22 10:13 Potassium Chloride Er 20 Meq Tablet PO 20 meq BID KATRIN Administration Senna/Docusate Sodium 1 tab 12/05/22 09:00 12/05/22 10:12 Sennosides-Docusate Tablet PO Not Given DAILY KATRIN PFSH Acute PFSH: Medical History Cardiac resynchronization therapy defibrillator (TELEPHONE DIRECTORY DISTRIBUTOR DRIVER-D) in place Cardiomyopathy Nonischemic, nonobstructive CAD?CAG 2021 Carpal tunnel syndrome CHF NYHA class IV Chronic back pain COPD (chronic obstructive pulmonary disease) Crohn disease Diabetes type 2, controlled Essential hypertension GERD (gastroesophageal reflux disease) Hyperlipidemia Hypothyroid Left bundle branch block Morbid obesity AURELIO on CPAP Presence of neurostimulator Pulmonary nodule Systolic heart failure Surgical History History of carpal tunnel surgery Previous section Family History Other CAD (coronary artery disease) Hypertension Social History Smoking and tobacco status: current every day smoker cigarettes Packs smoked per day: 1 Years cigarettes smoked: 42 Alcohol intake: former Substance/Drug Use: never Marital status: Single Number of children: 1 Pets and animals: Yes Pets & animals: dog(s) Vitals/I&O/Wt Last Vital Signs Temp 98.6 F 12/05/22 07:57 Pulse 96 12/05/22 09:33 Resp 18 12/05/22 09:33 BP 98/66 12/05/22 07:57 Pulse Ox 96 12/05/22 09:33 O2 Del Method Room Air 12/05/22 09:33 12/04/22 12/05/22 12/05/22 22:59 06:59 14:59 Intake Total 655 / 655 260 / 260 Output Total 300 / 300 Balance 355 / 355 260 / 260 Weight last 48 hrs Weight 201 lb Physical Exam Const: COMMON NORMALS: no acute distress, patient oriented x3 and alert GENERAL APPEARANCE: cooperative, comfortable, well kempt and well hydrated HENMT: COMMON NORMALS: hearing grossly normal bilaterally, external ears normal and moist oral mucous membranes FACE & SINUS: edema NOSE: Normal septum present and No nasal discharge present; no Epistaxis present EXTERNAL EAR: Yes external ears normal MOUTH: lip normal Eye: COMMON NORMALS: EOMs intact bilaterally and no scleral icterus GENERAL EYE: appearance normal, both eyes and all related structures ALIGNMENT: Yes alignment normal Neck/C-Spine: COMMON NORMALS: no lymphadenopathy, supple and no JVD GENERAL: Yes normal visual inspection and Yes trachea midline CAROTIDS: Yes normal carotid upstroke Lymph: LYMPHATIC: no lymphadenopathy noted Chest: COMMONS NORMALS: normal inspection of the chest and normal palpation of entire chest wall CHEST: Yes Symmetrical chest wall rise and No tenderness Resp: COMMON NORMALS: clear to auscultation bilaterally EFFORT & INSPECTION: Yes able to speak in complete sentences, No tachypneic, Yes respiratory distress (mild), No pursed lip breathing, No labored and No Actively coughing AUSCULTATION: clear to auscultation bilaterally, no crackles, no rales, no rhonchi and no wheezes Cardio: COMMON NORMALS: no JVD, regular rate, regular rhythm, S1 normal heart sound present, S2 normal heart sound present and Peripheral pulses 2+ throughout PALPATION: normal PMI RATE: regular rate RHYTHM: regular rhythm HEART SOUNDS: S1 normal heart sound present, S2 normal heart sound present and no murmurs BRUITS: no carotid bruits PERIPHERAL PULSES: Peripheral pulses 2+ throughout, radial pulses present, posterior tibial pulses present and dorsalis pedis present GI: COMMON NORMALS: Soft to palpation AUSCULTATION: Yes normoactive bowel sounds PALPATION: Yes Soft to palpation, No Tenderness to palpation present (GI), No Guarding due to palpation present (GI) and No Rigid due to palpation Extremity: GENERAL: No clubbing, No cyanosis, Yes edema and No pallor Neuro: COMMON NORMALS: patient oriented x3, CN's II-XII intact bilaterally and no focal motor deficits SENSORIUM/ORIENTATION: Yes alert Psych: COMMON NORMALS: Normal thought process present and speech normal APPEARANCE: Yes well kempt SPEECH: Yes normal speech MOOD & AFFECT: Yes euthymic mood THOUGHT PROCESS: Normal thought process present THOUGHT CONTENT: Yes Normal thought content present Data 12/06/22 04:45 12/06/22 04:45 A&P Assessment and plan (1) Systolic heart failure: decompensated -will give bumex iv today -monitor UO and renal function. -TELEPHONE DIRECTORY DISTRIBUTOR DRIVER pacing inadequate and contribution to CHF exacerbations. -will get in touch with EP to assess her options (outpatient/potential transfer for epicardial lead). (2) Cardiomyopathy: (3) Left bundle branch block: (4) Cardiac resynchronization therapy defibrillator (TELEPHONE DIRECTORY DISTRIBUTOR DRIVER-D) in place: (5) Diabetes type 2, controlled: (6) Hyperlipidemia: Plan Hypokalemia: replaced DM-2 Obesity Hypothyroidism Crohn's disease GERD Consult Attestations Time Spent in Patient Care: Greater than 35 minutes Coding Level of Care Code 02890 Diagnoses Systolic heart failure I50.20 Cardiomyopathy I42.9 Left bundle branch block I44.7 Cardiac resynchronization therapy defibrillator (TELEPHONE DIRECTORY DISTRIBUTOR DRIVER-D) in place Z95.810 Diabetes type 2, controlled E11.9 Hyperlipidemia E78.5
--- NOTE | 2022-12-05 10:50 | PC.PHAR ---
pt states she takes care of her own medications-pt states the dr dced her losartan 25mg tab take 12.5mg daily states dced sometime last week-pt states she the dr increased her metoprolol succinate to 25mg bid ext shows last filled 10/28/22 60d/s 25mg daily-notes are made in the pharmacy comments
--- NOTE | 2022-12-05 12:00 | PC.NURSE ---
Patient refused her noon heparin and 6 units of insulin.
--- NOTE | 2022-12-05 12:39 | P.PN_ITS ---
Subjective Subjective: Patient was sitting in a chair when I entered the room Was complaining of fatigue and mild shortness of breath on exertion Patient is stating that her systolic blood pressure remains at 90s at home she gets worried when it is below 80 Signs of contraction alkalosis present Her Bumex has been switched to IV Patient is still feeling short of breath Endorsing feeling fatigued and lethargic today Decrease her work of breathing I will put her on BiPAP for tonight however she does not use any at home Vitals/I&O/Wt Last Vital Signs Temp 98.4 F 12/05/22 11:11 Pulse 85 12/05/22 11:11 Resp 18 12/05/22 11:11 BP 95/65 12/05/22 11:11 Pulse Ox 97 12/05/22 11:11 O2 Del Method Room Air 12/05/22 11:11 12/04/22 12/05/22 12/05/22 22:59 06:59 14:59 Intake Total 655 / 655 260 / 260 Output Total 300 / 300 Balance 355 / 355 260 / 260 Weight last 48 hrs Weight 91.172 kg Physical Exam Narrative: Signs of fluid overload present Central venous congestion Currently on room air Pleasant and cooperative Fatigue She is able to finish sentence without shortness of breath Pleasant and cooperative Nonfocal neuro exam GCS 15 Left chest wall with AICD/pacemaker Paced rhythm Data 12/05/22 04:00 12/05/22 04:00 A&P Assessment and plan (1) Dyspnea: (2) Cardiac resynchronization therapy defibrillator (FRAME TABLE OPERATOR-D) in place: (3) Left bundle branch block: (4) Hyperlipidemia: (5) Diabetes type 2, controlled: (6) COPD (chronic obstructive pulmonary disease): (7) Systolic heart failure: (8) Cardiomyopathy: (9) Dyspnea on exertion: (10) Alkalosis, metabolic: Plan Acute systolic CHF exacerbation P.o. Bumex has been changed to IV Appreciate cardiology recommendations I will put patient on BiPAP to decrease work of breathing for tonight However she does not use any at home No leukocytosis fever or white count No need of antibiotics She will need adjustment of diuretics currently showing signs of contraction alkalosis, Dr. Penaloza has not recommended use of acetazolamide at this point her baseline bicarb seems to be around 27-30 current bicarb 33 I will obtain ABG as well EF 20% nonischemic cardiomyopathy status post AICD Full code Cardiac diet Continue hospitalization Attestations Medical Necessity Statement*: Patient is requiring diuresis Diagnoses Dyspnea R06.00 Cardiac resynchronization therapy defibrillator (FRAME TABLE OPERATOR-D) in place Z95.810 Left bundle branch block I44.7 Hyperlipidemia E78.5 Diabetes type 2, controlled E11.9 COPD (chronic obstructive pulmonary disease) J44.9 Systolic heart failure I50.20 Cardiomyopathy I42.9 Dyspnea on exertion R06.00 Alkalosis, metabolic E87.3
[2022-12-05] MEDS: ALPRAZolam 0.5 mg Tablet 0.25 MG PO (13:44)
[2022-12-05 16:36] LABS: Glucose Point of Care 168 mg/dL (70-110)
[2022-12-05 16:58] LABS: ABG PCO2 43.7 mmHg (35-45); ABG PH Result 7.48 (7.35-7.45); Arterial Blood Gas Hematocrit 39.1 % (37-47); Base Excess ABG 8.1 mmol/L (-2.0-2.0); Blood Gas Allen Test Pos; Blood Gas Operator Identificat glc; Blood Gas Sample Site Radial, right; Blood Gas Sample Type Arterial; HCO3 ABG 32.6 mmol/L (22-26); Oxygen Device ROOM AIR; PO2 ABG 75.4 mmHg (80.0-100.0)
[2022-12-05] MEDS: magnesium lactate 84 mg Tablet PO (17:26)
[2022-12-05] MEDS: bumetanide 0.25 mg/mL SDV 4 mL 1 MG IVP (17:27)
[2022-12-05] MEDS: PARoxetine 20 mg Tablet 40 MG PO (21:01)
[2022-12-05] MEDS: atorvastatin 40 mg Tablet PO (21:02)
[2022-12-05 22:02] LABS: Glucose Point of Care 316 mg/dL (70-110)
[2022-12-06] VITALS (15 sets, daily range): BP systolic 84–110; BP diastolic 62–80; PULSE 69–101; RESP 16–21; TEMP 36.7–36.9; O2SAT 94–98
[2022-12-06 04:58] LABS: Basophils % 0.4 %; Eosinophils # 0.1 10^3/uL (0.0-0.8); Hematocrit 38.1 % (37.0-47.0); Hemoglobin 12.6 g/dL (11.5-15.3); Lymphocytes % 29.5 %; Mean Corpuscular HGB Conc 33.1 g/dL (30.0-36.0); Mean Corpuscular Volume 93.6 fl (81-99); Mean Platelet Volume 9.3 fL (7.4-10.4); Monocytes # 0.9 10^3/uL (0.2-0.9); Monocytes % 13.3 %; Neutrophils # 3.76 10^3/uL (1.8-7.7); Neutrophils % 54.5 %; Nucleated Red Blood Cells % 0 %; Platelet Count 236 10^3/cmm (130-400); Red Blood Count 4.07 10^6/uL (4.1-5.3); Red Cell Distribution Width 13.1 % (12.1-15.1); White Blood Count 6.9 10^3/uL (4.0-10.0)
[2022-12-06] MEDS: levothyroxine 75 mcg Tablet PO (05:07)
[2022-12-06] MEDS: aspirin 81 mg EC Tablet PO (05:07)
[2022-12-06 05:15] LABS: Anion Gap 13.6 (5-19); Blood Urea Nitrogen 32 mg/dL (6-20); Calcium 9.9 mg/dL (8.5-10.5); Carbon Dioxide 34 mmol/L (22-29); Chloride 93 mmol/L (98-107); Glomerular Filtration Rate 46.3 mL/min (90-130); Glucose 119 mg/dL (65-115); Osmolality Calculated 292 mOsm/kg (285-295); Potassium 3.6 mmol/L (3.5-5.1); Sodium 137 mmol/L (136-145)
[2022-12-06 06:52] LABS: Glucose Point of Care 155 mg/dL (70-110)
[2022-12-06] MEDS: potassium chloride ER 20 mEq Tablet PO ×2 (09:46→17:58)
[2022-12-06] MEDS: nicotine 14 mg Patch 1 PATCH TRANSDERMA (09:47)
[2022-12-06] MEDS: pantoprazole DR 40 mg Tablet PO ×2 (09:47→17:58)
[2022-12-06] MEDS: magnesium lactate 84 mg Tablet PO ×2 (09:47→17:58)
[2022-12-06] MEDS: bumetanide 0.25 mg/mL SDV 4 mL 1 MG IVP (09:48)
[2022-12-06] MEDS: ALPRAZolam 0.5 mg Tablet 0.25 MG PO ×2 (10:26→22:00)
[2022-12-06] MEDS: acetaminophen 500 mg Tablet PO (10:27)
--- NOTE | 2022-12-06 10:31 | PC.NURSE ---
Patient refused Senna and Heparin this am. Dr. Pittman gave orders to hold Metoprolol due to low blood pressure this am.
--- NOTE | 2022-12-06 10:35 | PM.PN ---
Subjective Subjective: -1200 ml, feels better Medications: Reviewed: Yes Vitals/I&O/Wt Last Vital Signs Temp 97.4 F L 12/05/22 19:46 Pulse 76 12/06/22 08:29 Resp 16 12/06/22 08:29 BP 96/67 12/06/22 07:29 Pulse Ox 94 12/06/22 08:29 O2 Del Method Room Air 12/06/22 08:29 FiO2 25 12/06/22 03:41 12/05/22 12/06/22 12/06/22 22:59 06:59 14:59 Intake Total 380 / 900 120 / 1020 240 / 240 Output Total 2600 / 2600 Balance -2220 / -1700 120 / -1580 240 / 240 Weight last 48 hrs Weight 201 lb Physical Exam Const: COMMON NORMALS: no acute distress, patient oriented x3 and alert GENERAL APPEARANCE: cooperative, comfortable, well kempt and well hydrated HENMT: COMMON NORMALS: hearing grossly normal bilaterally, external ears normal and moist oral mucous membranes FACE & SINUS: edema EXTERNAL EAR: Yes external ears normal MOUTH: lip normal Eye: COMMON NORMALS: EOMs intact bilaterally and no scleral icterus GENERAL EYE: appearance normal, both eyes and all related structures ALIGNMENT: Yes alignment normal Neck/C-Spine: COMMON NORMALS: no lymphadenopathy, supple and no JVD GENERAL: Yes normal visual inspection and Yes trachea midline CAROTIDS: Yes normal carotid upstroke Lymph: LYMPHATIC: no lymphadenopathy noted Chest: COMMONS NORMALS: normal inspection of the chest and normal palpation of entire chest wall CHEST: Yes Symmetrical chest wall rise and No tenderness Resp: COMMON NORMALS: clear to auscultation bilaterally EFFORT & INSPECTION: Yes able to speak in complete sentences, No tachypneic, Yes respiratory distress (mild), No pursed lip breathing, No labored and No Actively coughing AUSCULTATION: clear to auscultation bilaterally, no crackles, no rales, no rhonchi and no wheezes Cardio: COMMON NORMALS: no JVD, regular rate, regular rhythm, S1 normal heart sound present, S2 normal heart sound present and Peripheral pulses 2+ throughout PALPATION: normal PMI RATE: regular rate RHYTHM: regular rhythm HEART SOUNDS: S1 normal heart sound present, S2 normal heart sound present and no murmurs BRUITS: no carotid bruits PERIPHERAL PULSES: Peripheral pulses 2+ throughout, radial pulses present, posterior tibial pulses present and dorsalis pedis present GI: COMMON NORMALS: Soft to palpation AUSCULTATION: Yes normoactive bowel sounds PALPATION: Yes Soft to palpation, No Tenderness to palpation present (GI), No Guarding due to palpation present (GI) and No Rigid due to palpation Extremity: GENERAL: No cyanosis, No edema and No pallor Neuro: COMMON NORMALS: patient oriented x3 and no focal motor deficits SENSORIUM/ORIENTATION: Yes alert Psych: COMMON NORMALS: Normal thought process present and speech normal APPEARANCE: Yes well kempt SPEECH: Yes normal speech MOOD & AFFECT: Yes euthymic mood THOUGHT PROCESS: Normal thought process present THOUGHT CONTENT: Yes Normal thought content present Data 12/06/22 04:45 12/06/22 04:45 A&P Assessment and plan (1) Systolic heart failure: decompensated -will give bumex iv today -monitor UO and renal function. -PACKING MACHINE CAN FEEDER pacing inadequate and contribution to CHF exacerbations. -will get in touch with EP to assess her options (outpatient/potential transfer for epicardial lead). (2) Cardiomyopathy: (3) Left bundle branch block: (4) Cardiac resynchronization therapy defibrillator (PACKING MACHINE CAN FEEDER-D) in place: (5) Diabetes type 2, controlled: (6) Hyperlipidemia: Plan Hypokalemia: replaced DM-2 Obesity Hypothyroidism Crohn's disease GERD Attestations Medical Necessity Statement*: needs hospital stay for CHF exacerbation Coding Level of Care Code 20283 Diagnoses Systolic heart failure I50.20 Cardiomyopathy I42.9 Left bundle branch block I44.7 Cardiac resynchronization therapy defibrillator (PACKING MACHINE CAN FEEDER-D) in place Z95.810 Diabetes type 2, controlled E11.9 Hyperlipidemia E78.5
--- NOTE | 2022-12-06 11:05 | PM.PN ---
Subjective Subjective: Patient is stating that she is feeling better today Contraction alkalosis noted Dr. Yancey is approaching Dr. Castaneda for potential transfer for inadequate pacing Patient is not endorsing chest pain, endorsing shortness of breath only on exertion Feeling better today as compared to yesterday Potassium 3.6 Creatinine stable Hyperglycemia Vitals/I&O/Wt Last Vital Signs Temp 98.0 F 12/06/22 10:51 Pulse 86 12/06/22 10:51 Resp 17 12/06/22 10:51 BP 90/70 12/06/22 10:51 Pulse Ox 97 12/06/22 10:51 O2 Del Method Room Air 12/06/22 08:29 FiO2 25 12/06/22 03:41 12/05/22 12/06/22 12/06/22 22:59 06:59 14:59 Intake Total 380 / 900 120 / 1020 240 / 240 Output Total 2600 / 2600 Balance -2220 / -1700 120 / -1580 240 / 240 Weight last 48 hrs Weight 91.172 kg Physical Exam Narrative: Patient sitting in chair Currently on room air In good spirits No distress at rest Lower extremity no edema Central body fluid accumulation Distended abdomen Bilateral breath sounds diminished right compared to left No active crackles GCS 15 S1, S2 variable Data 12/06/22 04:45 12/06/22 04:45 A&P Assessment and plan (1) Alkalosis, metabolic: (2) Dyspnea: (3) Cardiac resynchronization therapy defibrillator (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 Dr. Yancey is getting in touch with the plaster applicator at [facility] Outpatient evaluation versus transfer Acute systolic CHF exacerbation Diuretic adjustment as per cardiology Patient feeling better Contraction alkalosis on BMP Hypokalemia: Repleted Hypomagnesemia: Currently on p.o. magnesium Continue levothyroxine Low blood pressure, as per the patient she stays around 90s millimeters mercury, with an elevated pacing I would hold metoprolol succinate for today Cardiac diet Attestations Medical Necessity Statement*: Continue medical therapy Diagnoses Alkalosis, metabolic E87.3 Dyspnea R06.00 Cardiac resynchronization therapy defibrillator (BUSINESS AND MARKETING TEACHER-D) in place Z95.810 Diabetes type 2, controlled E11.9 COPD (chronic obstructive pulmonary disease) J44.9 Systolic heart failure I50.20 Cardiomyopathy I42.9 Dyspnea on exertion R06.00
[2022-12-06 11:27] LABS: Glucose Point of Care 161 mg/dL (70-110)
--- NOTE | 2022-12-06 12:21 | PC.NURSE ---
Patient refuses insulin. States she has never taken and will not take it now.
--- NOTE | 2022-12-06 15:52 | PC.NURSE ---
bp went to 110/80 after a brief walk
[2022-12-06 16:42] LABS: Glucose Point of Care 132 mg/dL (70-110)
[2022-12-06] MEDS: atorvastatin 40 mg Tablet PO (20:41)
[2022-12-06] MEDS: PARoxetine 20 mg Tablet 40 MG PO (20:42)
[2022-12-06 21:38] LABS: Glucose Point of Care 160 mg/dL (70-110)
--- NOTE | 2022-12-06 22:04 | PM.TDS ---
Transfer Summary Providers Date of Admission: 12/04/22 22:54 Date of Discharge/Transfer: 12/06/22 Attending Provider at Admission: Ascencion Pittman MD Attending Provider at Transfer: Ascencion Pittman MD Primary Care Provider: Sascha Carcamo Transfer Plans: Anticipated date of transfer: 12/06/22. Diagnoses at Discharge Discharge Diagnosis (1) Systolic heart failure: Status: Acute (2) Cardiomyopathy: Status: Acute Permanent problem details: Nonischemic, nonobstructive CAD?CAG 2021 (3) Left bundle branch block: Status: Acute (4) Cardiac resynchronization therapy defibrillator (STEREO EQUIPMENT REPAIRER-D) in place: Status: Acute (5) Diabetes type 2, controlled: Status: Acute (6) Hyperlipidemia: Status: Acute (7) COPD (chronic obstructive pulmonary disease): Status: Acute (8) Dyspnea on exertion: Status: Acute (9) Dyspnea: Status: Acute (10) Alkalosis, metabolic: Status: Acute Reason for Visit Reason for Visit chest pain Hospital Course Hospital Course This is taken from cardiology consultation note, which would suffice relevant data for the accepting facility Treasure Waldron is a 57 year old female with history of non ischemic cardiomyopathy (LVEF=15-20%), LBBB, s/p STEREO EQUIPMENT REPAIRER-D insertion on 04/25/2022, HTN, DM-2, Crohn's disease. Biotronik device by Dr Castaneda, [facility] [place].? The coronary sinus could not be cannulated so decision was made to proceed with left bundle area pacing, Biotronik lead was placed through the RV septum.? Multiple attempts for left bundle area pacing were made with the Biotronik lead however were not successful.? A Medtronic lead was advanced to the right ventricle and fixated in the mid RV septum.? This produced favorable QRS morphology with RBBB pattern and QRSd 130 msec.?It was recommended to perform echocardiogram 3 months after STEREO EQUIPMENT REPAIRER-D and, if LVEF did not improve recommendation was for epicardial LV lead placement. She missed her f/u appointments at [place] with Dr. Daley on account of being sick and echo was eventually? performed last week with no improvement in LV function.? Her most recent device interrogation with 16% PVC burden and increasing thoracic impedence.? She was previously 99% BiV paced that down to 83%.? EKG with sinus rhythm and LBBB. She has been having more abdominal distention,? shortness of breath with exertion and orthopnea. She has never had LE edema. Labs with increasing NT Pro-BNP. Patient has been accepted by Dr. Castaneda at [facility] [place] he has requested to get this patient accepted to the hospitalist service Dr. Mcgrath is the infrastructure developer who has accepted the patient on telemetry During hospitalization she was diuresed with IV Bumex, her creatinine improved to 1.2(peaked at 1.6 at admission), overall she is in negative balance of 1205 mL Clinically patient doing well she gets short of breath on exertion She is doing well on room air Physical Exam Narrative: Patient sitting in chair Currently on room air In good spirits No distress at rest Lower extremity no edema Central body fluid accumulation Distended abdomen Bilateral breath sounds diminished right compared to left No active crackles GCS 15 S1, S2 variable TS Data Studies Completed and Pending Pending at discharge Category Date Time Status Basic Metabolic Panel AM LABS Lab 12/07/22 04:00 Ordered Magnesium AM LABS Lab 12/07/22 04:00 Ordered Labs from last 24 hours 12/06/22 12/06/22 12/06/22 21:33 16:35 10:55 WBC RBC Hgb Hct MCV MCH MCHC RDW Plt Count MPV Neut % (Auto) Lymph % (Auto) [place] % (Auto) Eos % (Auto) Baso % (Auto) Neut # (Auto) Lymph # (Auto) [place] # (Auto) Eos # (Auto) Baso # (Auto) Nucleated RBC % (auto) Nucleated RBCs # Sodium Potassium Chloride Carbon Dioxide Anion Gap BUN Creatinine GFR Calculation Glucose POC Glucose 160 H 132 H 161 H Calculated Osmolality Calcium 12/06/22 12/06/22 12/06/22 06:43 04:45 04:45 WBC 6.9 RBC 4.07 L Hgb 12.6 Hct 38.1 MCV 93.6 MCH 31.0 MCHC 33.1 RDW 13.1 Plt Count 236 MPV 9.3 Neut % (Auto) 54.5 Lymph % (Auto) 29.5 [place] % (Auto) 13.3 Eos % (Auto) 2.0 Baso % (Auto) 0.4 Neut # (Auto) 3.76 Lymph # (Auto) 2.0 [place] # (Auto) 0.9 Eos # (Auto) 0.1 Baso # (Auto) 0.0 Nucleated RBC % (auto) 0 Nucleated RBCs # 0.0 Sodium 137 Potassium 3.6 Chloride 93 L Carbon Dioxide 34 H Anion Gap 13.6 BUN 32 H Creatinine 1.2 H GFR Calculation 46.3 L Glucose 119 H POC Glucose 155 H Calculated Osmolality 292 Calcium 9.9 Completed Studies During Hospitalization Category Date Time Status XR chest 1V portable [id number] Stat Exams 12/04/22 19:01 Completed Laboratory Last Values WBC 6.9 10^3/uL (4.0-10.0) 12/06/22 04:45 RBC 4.07 10^6/uL (4.1-5.3) L 12/06/22 04:45 Hgb 12.6 g/dL (11.5-15.3) 12/06/22 04:45 Hct 38.1 % (37.0-47.0) 12/06/22 04:45 MCV 93.6 fl (81-99) 12/06/22 04:45 MCH 31.0 pg (28.0-34.0) 12/06/22 04:45 MCHC 33.1 g/dL (30.0-36.0) 12/06/22 04:45 RDW 13.1 % (12.1-15.1) 12/06/22 04:45 Plt Count 236 10^3/cmm (130-400) 12/06/22 04:45 MPV 9.3 fL (7.4-10.4) 12/06/22 04:45 Neut % (Auto) 54.5 % 12/06/22 04:45 Lymph % (Auto) 29.5 % 12/06/22 04:45 [place] % (Auto) 13.3 % 12/06/22 04:45 Eos % (Auto) 2.0 % 12/06/22 04:45 Baso % (Auto) 0.4 % 12/06/22 04:45 Neut # (Auto) 3.76 10^3/uL (1.8-7.7) 12/06/22 04:45 Lymph # (Auto) 2.0 10^3/uL (0.8-4.8) 12/06/22 04:45 [place] # (Auto) 0.9 10^3/uL (0.2-0.9) 12/06/22 04:45 Eos # (Auto) 0.1 10^3/uL (0.0-0.8) 12/06/22 04:45 Baso # (Auto) 0.0 10^3/uL (0.0-0.1) 12/06/22 04:45 Nucleated RBC % (auto) 0 % 12/06/22 04:45 Nucleated RBCs # 0.0 /100WBC 12/06/22 04:45 PT 12.50 SECONDS (12.1-14.9) 12/04/22 19:14 INR 0.91 (0.8-1.2) 12/04/22 19:14 D-Dimer 0.32 ug/mIFEU (0-0.59) 12/04/22 19:19 Specimen Type Arterial 12/05/22 16:46 Sample Site Radial, right 12/05/22 16:46 ABG pH 7.48 (7.35-7.45) H 12/05/22 16:46 ABG pCO2 43.7 mmHg (35-45) 12/05/22 16:46 ABG pO2 75.4 mmHg (80.0-100.0) L 12/05/22 16:46 ABG HCO3 32.6 mmol/L (22-26) H 12/05/22 16:46 ABG Base Excess 8.1 mmol/L (-2.0-2.0) H 12/05/22 16:46 Alexis Test Pos 12/05/22 16:46 Hematocrit 39.1 % (37-47) 12/05/22 16:46 O2 Delivery Device Room air 12/05/22 16:46 FiO2 21.0 % 12/05/22 16:46 Medical Economics Consultant ID glc 12/05/22 16:46 Sodium 137 mmol/L (136-145) 12/06/22 04:45 Potassium 3.6 mmol/L (3.5-5.1) 12/06/22 04:45 Chloride 93 mmol/L (98-107) L 12/06/22 04:45 Carbon Dioxide 34 mmol/L (22-29) H 12/06/22 04:45 Anion Gap 13.6 (5-19) 12/06/22 04:45 BUN 32 mg/dL (6-20) H 12/06/22 04:45 Creatinine 1.2 mg/dL (0.5-0.9) H 12/06/22 04:45 GFR Calculation 46.3 mL/min (90-130) L 12/06/22 04:45 Glucose 119 mg/dL (65-115) H 12/06/22 04:45 POC Glucose 160 mg/dL (70-110) H 12/06/22 21:33 Calculated Osmolality 292 mOsm/kg (285-295) 12/06/22 04:45 Calcium 9.9 mg/dL (8.5-10.5) 12/06/22 04:45 Magnesium 1.5 mg/dL (1.7-2.3) L 12/05/22 04:00 Total Bilirubin 0.2 mg/dL (0.15-1.2) 12/04/22 19:14 AST 18 U/L (0-32) 12/04/22 19:14 ALT 16 U/L (0-33) 12/04/22 19:14 Alkaline Phosphatase 56 U/L (35-105) 12/04/22 19:14 Troponin T Baseline 34 ng/L (0-10) H 12/04/22 19:14 Troponin T 120 Minute 33.77 ng/L (0-10) H 12/04/22 21:08 Delta Troponin T -0.23 ABS# (0-10) L 12/04/22 21:08 NT-Pro-B Natriuret Pep 5737 pg/mL (0-125) H 12/04/22 19:14 Total Protein 8.0 g/dL (6.6-8.7) 12/04/22 19:14 Albumin 4.5 g/dL (3.5-5.2) 12/04/22 19:14 Globulin 3.5 g/dL (1.3-4.6) 12/04/22 19:14 Radiology Impressions Chest X-Ray 12/04/22 19:01 IMPRESSION: Negative for infiltrate, cardiomegaly. Recent Clincial Data Last Vital Signs Temp 98.5 F 12/06/22 19:34 Pulse 93 12/06/22 20:13 Resp 18 12/06/22 20:13 BP 107/71 12/06/22 19:34 Pulse Ox 97 12/06/22 20:13 O2 Del Method Room Air 12/06/22 20:13 FiO2 25 12/06/22 03:41 Vital Signs Temp Pulse Resp BP Pulse Ox O2 Del Method 12/06/22 20:13 93 18 97 Room Air 12/06/22 14:00 93 12/06/22 19:34 98.5 F 99 17 107/71 95 Room Air 12/06/22 15:52 110/80 12/06/22 15:40 98.1 F 79 17 84/62 96 12/06/22 10:51 98.0 F 86 17 90/70 97 Intake & Output/Weight 12/04/22 12/05/22 12/06/22 12/07/22 06:59 06:59 06:59 06:59 Intake Total 655 / 655 1020 / 1020 720 / 720 Output Total 300 / 300 2600 / 2600 700 / 700 Balance 355 / 355 -1580 / -1580 Weight 91.172 kg Vitals Last Vital Signs Temp 98.5 F 12/06/22 19:34 Pulse 93 12/06/22 20:13 Resp 18 12/06/22 20:13 BP 107/71 12/06/22 19:34 Pulse Ox 97 12/06/22 20:13 O2 Del Method Room Air 12/06/22 20:13 FiO2 25 12/06/22 03:41 TS Medications Medications Acetaminophen (Acetaminophen 500 Mg Tablet) 500 mg PO Q4H PRN PRN Reason: fever Last Admin: 12/06/22 10:27 Dose: 500 mg Albuterol/Ipratropium (Ipratropium-Albuterol 3 Ml Neb) 3 ml INHALATION Q6H PRN PRN Reason: SHORTNESS OF BREATH Alprazolam (Alprazolam 0.5 Mg Tablet) 0.25 mg PO BID PRN PRN Reason: Anxiety Last Admin: 12/06/22 22:00 Dose: 0.25 mg Aspirin (Aspirin 81 Mg Ec Tablet) 81 mg PO QAM FOR[facility], [facility] Last Admin: 12/06/22 05:07 Dose: 81 mg Atorvastatin Calcium (Atorvastatin 40 Mg Tablet) 40 mg PO BEDTIME [facility], [facility]1983 Last Admin: 12/06/22 20:41 Dose: 40 mg Bumetanide (Bumetanide 0.25 Mg/Ml Sdv 4 Ml) 1 mg IVP DAILY [facility], [facility]1983 Last Admin: 12/06/22 09:48 Dose: 1 mg Dextrose (Dextrose 50% Syringe 50 Ml) 25 ml IVP ONCE PRN; Protocol PRN Reason: hypoglycemia protocol Dextrose (Dextrose 50% Syringe 50 Ml) 50 ml IVP PRN PRN; Protocol PRN Reason: hypoglycemia protocol Dextrose (Dextrose 50% Syringe 50 Ml) 25 ml IVP ONCE PRN; Protocol PRN Reason: hypoglycemia protocol Glucagon (Glucagon 1 Mg/Ml Inj 1 Ml) 1 mg IM ONCE PRN; Protocol PRN Reason: Adult Acute Hypoglycemia Prot. Heparin Sodium (Porcine) (Heparin 5,000 Unit/Ml Inj 1 Ml) 5,000 unit SUBCUT Q12H [facility], [facility] Last Admin: 12/06/22 10:31 Dose: Not Given Dextrose (D5w) 500 mls @ 100 mls/hr IV ONCE PRN; Protocol PRN Reason: Adult Acute Hypoglycemia Prot Dextrose (D5w) 500 mls @ 100 mls/hr IV ONCE PRN; Protocol PRN Reason: Adult Acute Hypoglycemia Prot Insulin Human Lispro (Insulin Lispro 100 Unit/1 Ml) 0 unit SUBCUT TIDWM [facility], [facility]; Protocol Last Admin: 12/06/22 17:57 Dose: Not Given Insulin Human Lispro (Insulin Lispro 100 Unit/1 Ml) 0 unit SUBCUT TIDWM [facility]; Protocol Last Admin: 12/06/22 17:58 Dose: Not Given Levothyroxine Sodium (Levothyroxine 75 Mcg Tablet) 75 mcg PO QAM [facility] Last Admin: 12/06/22 05:07 Dose: 75 mcg Magnesium Lactate (Magnesium Lactate 84 Mg Tablet) 84 mg PO BID [facility] Last Admin: 12/06/22 17:58 Dose: 84 mg Metoprolol Succinate (Metoprolol Succinate Er (24 Hr) 25 Mg Tablet) 12.5 mg PO BID [facility] Last Admin: 12/06/22 09:48 Dose: Not Given Nicotine (Nicotine 14 Mg Patch) 1 patch TRANSDERMA DAILY [facility], [facility]1983 Last Admin: 12/06/22 09:47 Dose: 1 patch Ondansetron HCl (Ondansetron 2 Mg/Ml Sdv 2 Ml) 4 mg IVP Q6H PRN PRN Reason: NAUSEA AND VOMITING Pantoprazole Sodium (Pantoprazole Dr 40 Mg Tablet) 40 mg PO BID [facility] Last Admin: 12/06/22 17:58 Dose: 40 mg Paroxetine HCl (Paroxetine 20 Mg Tablet) 40 mg PO BEDTIME [facility] Last Admin: 12/06/22 20:42 Dose: 40 mg Potassium Chloride (Potassium Chloride Er 20 Meq Tablet) 20 meq PO BID [facility] Last Admin: 12/06/22 17:58 Dose: 20 meq Senna/Docusate Sodium (Sennosides-Docusate Tablet) 1 tab PO DAILY [facility] Last Admin: 12/06/22 09:47 Dose: Not Given Discontinued Medications Bumetanide (Bumetanide 1 Mg Tablet) 1 mg PO DAILY [facility] Last Admin: 12/05/22 10:14 Dose: 1 mg Bumetanide (Bumetanide 0.25 Mg/Ml Sdv 4 Ml) 1 mg IVP 0800,1600 [facility] Magnesium Sulfate (Magnesium Sulfate Premix) 2 gm in 50 mls @ 50 mls/hr IV ONCE ONE Stop: 12/05/22 05:35 Last Infusion: 12/05/22 05:32 Dose: Infused Lidocaine HCl 5 ml/ Potassium (Chloride) 105 mls @ 26.25 mls/hr IV ONCE ONE Stop: 12/05/22 08:36 Lidocaine HCl 5 ml/ Potassium (Chloride) 105 mls @ 26.25 mls/hr IV ONCE ONE Stop: 12/05/22 09:14 Last Infusion: 12/05/22 05:44 Dose: Infused Magnesium Oxide (Magnesium Oxide 400 Mg Tablet) 400 mg PO BID [facility] Last Admin: 12/05/22 10:13 Dose: 400 mg Paroxetine HCl (Paroxetine 20 Mg Tablet) 40 mg PO BEDTIME [facility] Last Admin: 12/04/22 23:40 Dose: 40 mg Potassium Chloride (Potassium Chloride Er 20 Meq Tablet) 20 meq PO BID [facility] Last Admin: 12/05/22 10:13 Dose: 20 meq Potassium Chloride (Potassium Chloride Er 20 Meq Tablet) 40 meq PO ONCE ONE Stop: 12/04/22 23:50 Last Admin: 12/05/22 00:05 Dose: 40 meq Potassium Chloride (Potassium Chloride Er 20 Meq Tablet) 40 meq PO ONCE ONE Stop: 12/05/22 05:43 Last Admin: 12/05/22 05:48 Dose: 40 meq Allergies levofloxacin Allergy (Unknown, Verified 12/04/22 19:43) Unknown sacubitril [From Entresto] Allergy (Verified 12/04/22 19:43) ADR-Itching valsartan [From Entresto] Allergy (Verified 12/04/22 19:43) ADR-Itching Home Medications aspirin 81 mg tablet,delayed release (Adult Low Dose Aspirin) 81 mg PO QAM 08/09/20 [History Confirmed 12/05/22] levothyroxine 75 mcg tablet 75 mcg PO QAM 08/09/20 [History Confirmed 12/05/22] loratadine 10 mg tablet 10 mg PO BEDTIME 08/09/20 [History Confirmed 12/05/22] pantoprazole 40 mg tablet,delayed release 40 mg PO BID 08/09/20 [History Confirmed 12/05/22] albuterol sulfate 90 mcg/actuation aerosol inhaler 2 puff inhalation Q6H PRN Shortness Of Breath 04/05/21 [History Confirmed 12/05/22] infliximab 100 mg intravenous solution (Remicade) See Rx Instructions .Route .COMPLEX 04/05/21 [History Confirmed 12/05/22] rosuvastatin 10 mg tablet 10 mg PO BEDTIME 09/15/21 [History Confirmed 12/05/22] alprazolam 0.25 mg tablet 0.25 mg PO BID PRN Anxiety 11/01/21 [History Confirmed 12/05/22] furosemide 40 mg tablet 80 mg PO BID 12/14/21 [History Confirmed 12/05/22] magnesium oxide 400 mg PO BID #60 caps 04/27/22 [Rx Confirmed 12/05/22] metolazone 2.5 mg tablet 2.5 mg PO .every other day #30 tabs 11/06/22 [Rx Confirmed 12/04/22] metoprolol succinate 25 mg tablet,extended release 24 hr 25 mg PO BID 12/04/22 [History Confirmed 12/05/22] acetaminophen 500 mg tablet (Tylenol Extra Strength) 1,000 mg PO Q4H PRN Pain 12/05/22 [History Confirmed 12/05/22] ferrous gluconate 324 mg (37.5 mg iron) tablet 324 mg PO QAM 12/05/22 [History Confirmed 12/05/22] metformin 1,000 mg tablet 1,000 mg PO BID 12/05/22 [History Confirmed 12/05/22] paroxetine HCl 40 mg tablet 40 mg PO BEDTIME 12/05/22 [History Confirmed 12/05/22] potassium chloride 20 mEq tablet,extended release(part/cryst) See Rx Instructions .Route .COMPLEX 12/05/22 [History Confirmed 12/05/22] spironolactone 25 mg tablet 25 mg PO QAM 12/05/22 [History Confirmed 12/05/22] Discharge Plan Discharge Patient Disposition: Home Condition: Stable Prescriptions: No Action pantoprazole 40 mg tablet,delayed release (DR/EC) 40 mg PO BID loratadine 10 mg tablet 10 mg PO BEDTIME levothyroxine 75 mcg tablet 75 mcg PO QAM aspirin [Adult Low Dose Aspirin] 81 mg tablet,delayed release (DR/EC) 81 mg PO QAM albuterol sulfate 90 mcg/actuation HFA aerosol inhaler 2 puff inhalation Q6H PRN (Reason: Shortness Of Breath) infliximab [Remicade] 100 mg recon soln See Rx Instructions .ROUTE .COMPLEX Rx Instructions: EVERY 6-8 WEEKS @ [facility] furosemide 40 mg tablet 80 mg PO BID alprazolam 0.25 mg tablet 0.25 mg PO BID PRN (Reason: Anxiety) magnesium oxide 400 mg magnesium capsule 400 mg PO BID Qty: 60 6RF metolazone 2.5 mg tablet 2.5 mg PO .every other day Qty: 30 0RF Rx Instructions: take with extra 20mEq potassium, 30 minutes before AM furosemide; patient states next dose is 20 rosuvastatin 10 mg tablet 10 mg PO BEDTIME metoprolol succinate 25 mg tablet extended release 24 hr 25 mg PO BID potassium chloride 20 mEq tablet,ER particles/crystals See Rx Instructions .ROUTE .COMPLEX Rx Instructions: 2 tabs in the am and 1 tab qpm every other day with Metolazone and one tab BID on days not taking Metolazone; patient states she needs to take three on -20 with Metolazone metformin 1,000 mg tablet 1,000 mg PO BID paroxetine HCl 40 mg tablet 40 mg PO BEDTIME Tylenol Extra Strength 500 mg tablet 1,000 mg PO Q4H PRN (Reason: Pain) spironolactone 25 mg tablet 25 mg PO QAM ferrous gluconate 324 mg (37.5 mg iron) tablet 324 mg PO QAM Discharge Orders: Transfer Out of Facility (Order); Ordered 12/06/22 Ordered By: Ascencion Pittman Referrals: Ssacha Carcamo [Primary Care Provider] - 06/27/23 9:45 am Patient Instructions: Opioid Safety Transfer Attestations Time Spent in Transfer Care: greater than 30 min Status at Transfer: Cognitive status at transfer: cognitively intact; Behavioral status at transfer: cooperative; Quality Metrics Clinical Quality Measures [ No reported AMI, CVA or VTE this stay] Coding Level of Care Code Acute Code for Chg Fwd Diagnoses Systolic heart failure I50.20 Cardiomyopathy I42.9 Left bundle branch block I44.7 Cardiac resynchronization therapy defibrillator (STEREO EQUIPMENT REPAIRER-D) in place Z95.810 Diabetes type 2, controlled E11.9 Hyperlipidemia E78.5 COPD (chronic obstructive pulmonary disease) J44.9 Dyspnea on exertion R06.00 Dyspnea R06.00 Alkalosis, metabolic E87.3
[2022-12-07] VITALS: BP 93/66; PULSE 97; RESP 20; TEMP 36.8; O2SAT 93
[2022-12-07] MEDS: acetaminophen 500 mg Tablet PO ×2 (00:11→07:21)
[2022-12-07 03:49] VITALS: PULSE 80; RESP 20; O2SAT 99
[2022-12-07 04:00] VITALS: BP 102/71; PULSE 83; RESP 18; O2SAT 98
[2022-12-07 04:51] LABS: Anion Gap 12.5 (5-19); Blood Urea Nitrogen 26 mg/dL (6-20); Calcium 9.3 mg/dL (8.5-10.5); Carbon Dioxide 31 mmol/L (22-29); Chloride 97 mmol/L (98-107); Glomerular Filtration Rate 46.3 mL/min (90-130); Glucose 125 mg/dL (65-115); Magnesium 1.8 mg/dL (1.7-2.3); Osmolality Calculated 290 mOsm/kg (285-295); Potassium 3.5 mmol/L (3.5-5.1); Sodium 137 mmol/L (136-145)
[2022-12-07 06:00] VITALS: PULSE 80
[2022-12-07] MEDS: levothyroxine 75 mcg Tablet PO (06:09)
[2022-12-07] MEDS: aspirin 81 mg EC Tablet PO (06:09)
[2022-12-07 07:02] LABS: Glucose Point of Care 148 mg/dL (70-110)
[2022-12-07] MEDS: ALPRAZolam 0.5 mg Tablet 0.25 MG PO (07:21)
[2022-12-07] MEDS: nicotine 14 mg Patch 1 PATCH TRANSDERMA (07:21)
[2022-12-07 07:24] VITALS: PULSE 93; RESP 16; O2SAT 95
[2022-12-07 07:48] VITALS: BP 102/71; PULSE 93; RESP 16; TEMP 36.8; O2SAT 95
== END 2022-12-07 07:49 | disposition short-term general hospital (02) ==
LOC: ER 21:52 → MEDSURG 22:54
PROVIDERS: Admitting Provider Internal Medicine; Emergency Provider Emergency Medicine; PCP Family Medicine; Visit Provider Internal Medicine
DX: I44.7 Left bundle-branch block, unspecified (principal); I11.0 Hypertensive heart disease with heart failure; I50.21 Acute systolic (congestive) heart failure; R06.09 Other forms of dyspnea; F17.210 Nicotine dependence, cigarettes, uncomplicated; E83.42 Hypomagnesemia; E87.6 Hypokalemia; K50.90 Crohn's disease, unspecified, without complications; Z79.82 Long term (current) use of aspirin; Z79.84 Long term (current) use of oral hypoglycemic drugs; E78.5 Hyperlipidemia, unspecified; J44.9 Chronic obstructive pulmonary disease, unspecified; Z95.810 Presence of automatic (implantable) cardiac defibrillator; I95.9 Hypotension, unspecified; I42.8 Other cardiomyopathies; K21.9 Gastro-esophageal reflux disease without esophagitis; E03.9 Hypothyroidism, unspecified; E66.01 Morbid (severe) obesity due to excess calories; Z68.41 Body mass index [BMI] 40.0-44.9, adult; E87.3 Alkalosis
CPT/HCPCS: 36415; 36416; 36600; 71045; 80048; 80053; 82803; 82962; 83735; 83880; 84484; 85025; 85378; 85610; 93005; 94660; 94664; 96365; 96367; 96372; 96375; 99285; G0378; J1644; J1815; J3475; J3480; J3490; Q3014